=== PATIENT | female | born 1965 | race African-American/Black ===

== ENCOUNTER 2017-06-10 18:10 | Inpatient (IN) | payer MEDICARE, MEDICAID ==
[~2017-06-10] VITALS: Ht 172.7 cm; Wt 115.2 kg
[~2017-06-10 18:10] MED LIST: ASCO500T9 PO; BENZ1TAB22 PO; BISA-79 PO; CLON1TAB PO; DIVA250T4 PO; FLUO40CA49 PO; FURO-144 PO; LEVE500T20 PO; PALI234D IM; POTA20TA74 PO; QUET200T PO; RIVA10TA PO; ZINC220C8 PO; ZOLP5TAB2 PO
--- NOTE | 2017-06-10 18:20 | NUR ---
[id number] FROM [facility] FOR WITNESSED SEIZURE LASTED 2MIN PER PRINCIPAL AUTOMATION ENGINEER. NO TRAUMA. [id number]. SEIZURE PRECAUTION IS IN PLACE. RR IS EVEN AND UNLABORED WITH NAD NOTED. SKIN IS WARM AND DRY. PLACED ON THE MONITOR. WILL CONTINUOUSLY MONITOR THE PATIENT. AWAITING MD FOR EVAL.
[2017-06-10] MEDS ORDERED: LORAZEPAM 1 MG TABLET ONE (18:27)
[2017-06-10] MEDS ORDERED: LEVETIRACETAM (250 MG) 250 MG TABLET PO ONE ×2 (18:27→18:30)
[2017-06-10] MEDS ORDERED: LORAZEPAM 1 MG TABLET PO ONE (18:30)
--- NOTE | 2017-06-10 18:31 | NUR ---
NETWORKS COMPUTER CONSULTANT AT FOR BLOOD DRAW.
[2017-06-10] MEDS ORDERED: LORAZEPAM INJ 2 MG/ML VIAL ONE ×3 (18:39→20:19)
--- NOTE | 2017-06-10 18:53 | NUR ---
PATIENT HAVING ACTIVE SEIZURE, PRECAUTIONS IN PLACE. ATIVAN GIVEN IM SINCE NO IV ACCESS AT THIS TIME, MD AWARE.
[2017-06-10] MEDS ORDERED: LORAZEPAM INJ 2 MG/ML VIAL IV ONE (19:00)
[2017-06-10 19:01] LABS: EOSINOPHILS % (AUTO) 0.5 % (0.0-6.0); HEMATOCRIT 33 % (33-45); HEMOGLOBIN 10.9 g/dL (11.5-14.8); LYMPHOCYTES # (AUTO) 2.2 /CMM (0.8-4.8); LYMPHOCYTES % (AUTO) 83.3 % (20.0-44.0); MEAN CORPUSCULAR HGB CONC 33 g/dl (31.0-36.0); MEAN CORPUSCULAR VOLUME 86 fL (82-100); MONOCYTES # (AUTO) 0.2 /CMM (0.1-1.30); MONOCYTES % (AUTO) 5.8 % (2.0-12.0); NEUTROPHILS # (AUTO) 0.3 /CMM (1.8-8.9); NEUTROPHILS % (AUTO) 9.4 % (43.0-81.0); PLATELET COUNT (AUTO) 189 /CMM (150-450); RDW COEFFICIENT OF VARIATION 13.8 (11.5-15.0); WHITE BLOOD COUNT (AUTO) 2.7 K/uL (4.3-11.0)
[2017-06-10 19:12] LABS: CALCIUM, SERUM 8.6 mg/dL (8.5-10.1); CREATININE 1.1 mg/dL (0.6-1.3); POTASSIUM 4.5 mmol/L (3.5-5.1)
[2017-06-10 19:17] LABS: INR 1.08 (0.85-1.15)
--- NOTE | 2017-06-10 19:20 | NUR ---
RECEIVED REPORT FROM JOEY SIDDIQI FOR TREY.
--- NOTE | 2017-06-10 19:28 | NUR ---
PT NOTED TO BE HAVING TONIC CLONIC SEIZURE LASTING 4 MINUTES. PT IS ON NR 15L/M WITH SEIZURE PRECAUTIONS IN PLACE. PT MEDICATED PER MD'S ORDERS. WILL CONTINUE TO MONITOR PT.
[2017-06-10] MEDS ORDERED: LEVETIRACETAM (500MG) 500 MG in IV NS 0.9% 100 ML IV ONE (19:30)
[2017-06-10] MEDS ORDERED: LORAZEPAM INJ 2 MG/ML VIAL IVP ONE ×2 (19:30→20:30)
--- NOTE | 2017-06-10 20:00 | NUR ---
CALLED THE NURSING SITE SAFETY MANAGER FOR A [facility] ROOM.
--- NOTE | 2017-06-10 20:06 | NUR ---
CALLED [facility] FOR PANEL CALL AND DR. CLAYTON WAS PAGED.
[2017-06-10 20:12] LABS: BAND % (MANUAL) 1 % (0.0-5.0); BASOPHILS % (MANUAL) 0 % (0.0-2.0); EOSINOPHILS % (MANUAL) 0 % (0-4); LYMPHOCYTES % (MANUAL) 90 % (16-48); MONOCYTES % (MANUAL) 3 % (0-11.0); NEUTROPHILS % (MANUAL) 6 (42-76)
--- NOTE | 2017-06-10 20:12 | NUR ---
PT IS ASSIGNED TO [facility]#: [id number], PT IS DIAGNOSED WITH STATUS EPILEPTICUS, AND DR CLAYTON IS THE ACCEPTING MD.
--- NOTE | 2017-06-10 20:23 | NUR ---
PT BROUGHT BACK FROM CT DUE TO PT HAVING AN ACTIVE SEIZURE. PT NOTED TO BE HAVING TONIC CLONIC SEIZURES FOR A TOTAL OF [address] UNABLE TO BE PERFORMRED. MD MADE AWARE. PT MEDICATED PER MD'S ORDERS. WILL CONTINUE TO MONITOR PT. PT ON MONITOR AND POX. PT ON NR 15L/M. SEIZURE PRECAUTIONS IN PLACE.
--- NOTE | 2017-06-10 20:32 | NUR ---
RADIOLOGY BEDSIDE FOR CHEST X-RAY
--- NOTE | 2017-06-10 20:34 | NUR ---
PT TO CT
--- NOTE | 2017-06-10 20:41 | NUR ---
REPORT GIVEN TO BACILIO QUEVEDO FOR TREY.
--- NOTE | 2017-06-10 20:59 | NUR ---
PER MD BILLY, CT NO LONGER REQUIRED AT THIS MOMENT. PT OKAY TO BE TRANSFERED TO [facility] PER MD BILLY.
[2017-06-10 21:15] VITALS: BP 127/75
[2017-06-10] MEDS ORDERED: MAG HYDROX/AL HYDROX/SIMETH 30 ML UDC PO PRN (21:30)
[2017-06-10] MEDS ORDERED: ENOXAPARIN SODIUM 40 MG/0.4 ML DISP.SYRIN SQ SCH (21:30)
[2017-06-10] MEDS ORDERED: Z GUARD REMEDY 2 OZ OINT TP PRN (21:30)
[2017-06-10] MEDS ORDERED: BISACODYL (5 MG) 5 MG TABLET.DR PO PRN (21:30)
[2017-06-10] MEDS ORDERED: HYDROCODONE/APAP 5/325MG 1 EACH TABLET PO PRN (21:30)
[2017-06-10] MEDS ORDERED: PALIPERIDONE PALMITATE 234 MG IM SCH (21:30)
[2017-06-10] MEDS ORDERED: ZOLPIDEM TARTRATE 5 MG TABLET PO PRN (21:30)
[2017-06-10] MEDS ORDERED: ONDANSETRON HCL/PF 4 MG/2 ML VIAL IVP PRN (21:30)
[2017-06-10] MEDS ORDERED: MAGNESIUM HYDROXIDE 30 ML UDC PO PRN (21:30)
[2017-06-10] MEDS ORDERED: ACETAMINOPHEN 325 MG TABLET PO PRN (21:30)
[2017-06-10] MEDS ORDERED: ZOLPIDEM TARTRATE 5 MG TABLET PO SCH (22:00)
--- NOTE | 2017-06-10 22:00 | NUR ---
DATA CONTROL CLERK SUPERVISOR NOTE ADMITTED 51 YEARS OLD FEMALE PT FROM ER WITH THE DX OF SUSPECTED BREAKTHROUGH SEIZURE. PT IS A/O X 2-3. NO SOB, NO DISTRESS OR DISCOMFORT NOTED. DENIES PAIN. ON TELE S TACH HR 109. VANESSA CATH ON LT UPPER CHEST INTACT AND PATENT. SKIN ASSESSMENT DONE. PICTURES TAKEN AND PLACE THEM IN THE CHART. WOUND AND DIETARY CONSULT TRIGGERED. ADMITTING ORDERS CHECKED. ORIENTED PT TO HER ROOM. SIDE RAILS UP X 3 AND CALL LIGHT WITHIN REACH. SEIZURE PRECAUTIONS TAKEN. PADDED SIDE RAILS. CONTINUE TO MONITOR HER.
[2017-06-10] MEDS: ASCORBIC ACID 500 MG TABLET PO SCH (22:43)
[2017-06-10] MEDS: BENZTROPINE MESYLATE (1 MG) 1 MG TABLET PO SCH (22:43)
[2017-06-10] MEDS: IV NS 0.9% 1,000 ML IV PRN (23:19)
[2017-06-11] VITALS: BP 116/50
[2017-06-11 04:00] VITALS: BP 118/66
--- NOTE | 2017-06-11 04:00 | NUR ---
PRODUCT BLENDING SUPERVISOR NOTE PT IN BED ASLEEP, NO DISTRESS OR DISCOMFORT NOTED. IVF INFUSING WELL, LT UPPER CHEST WALL PROTA CATH. CONTINUE TO MONITOR HER.
--- NOTE | 2017-06-11 06:34 | NUR ---
COMMERCIAL REAL ESTATE APPRAISER NOTE PT IN BED AWAKE. NO DISTRESS OR DISCOMFORT NOTED. DENIES PAIN. ON TELE S TACH HR 106. SIDE RAILS UP X 2 AND CALL LIGHT WITHIN REACH. VSS. WILL ENDORSE TO DAY SHIFT NURSE FOR CONTINUE TO CARE.
[2017-06-11 06:59] LABS: EOSINOPHILS % (AUTO) 0.3 % (0.0-6.0); HEMATOCRIT 33 % (33-45); LYMPHOCYTES # (AUTO) 0.4 /CMM (0.8-4.8); MEAN CORPUSCULAR HGB CONC 33 g/dl (31.0-36.0); MEAN CORPUSCULAR VOLUME 87 fL (82-100); MONOCYTES # (AUTO) 0.4 /CMM (0.1-1.30); MONOCYTES % (AUTO) 4.5 % (2.0-12.0); NEUTROPHILS % (AUTO) 91.2 % (43.0-81.0); PLATELET COUNT (AUTO) 200 /CMM (150-450); RDW COEFFICIENT OF VARIATION 15.1 (11.5-15.0); RED BLOOD CELL COUNT(AUTO) 3.84 MIL/uL (4.0-5.2); WHITE BLOOD COUNT (AUTO) 8.8 K/uL (4.3-11.0)
[2017-06-11 07:43] LABS: ALBUMIN 2.6 g/dL (3.4-5.0); BILIRUBIN,TOTAL 0.4 mg/dL (0.2-1.0); CALCIUM, SERUM 8.5 mg/dL (8.5-10.1); MAGNESIUM 1.8 mg/dL (1.8-2.4); PHOSPHORUS 3.1 mg/dL (2.5-4.9); POTASSIUM 4.8 mmol/L (3.5-5.1); TOTAL PROTEIN, SERUM 7.8 g/dL (6.4-8.2)
--- NOTE | 2017-06-11 07:45 | NUR ---
RN NOTE RECEIVED PATIENT IN BED ASLEEP, BUT EASILY AROUSED WITH VERBAL COMMUNICATION. BREATHING EVEN AND UNLABORED WITH NO DISCOMFORT OR DISTRESS NOTED. ON CONTINUOUS O2 OF 2L SATURATING WELL. DENIES ANY PAIN AT THIS TIME. ON BUFFER NICKEL OF SINUS RHYTHM HR OF 96. VANESSA CATH ON LT UPPER CHEST INTACT AND PATENT. PLACED CALL LIGHT WITHIN REACH, BED LOW IN LOCKED POSITION. SEIZURE PRECAUTIONS TAKEN. PADDED SIDE RAILS. WILL CONTINUE TO MONITOR
[2017-06-11 08:00] VITALS: BP 109/58
--- NOTE | 2017-06-11 08:46 | NUR ---
WOUND CARE CONSULT: PT PRESENTS WITH DRY SKIN TO LOWER LEGS AND SLIGHT REDNESS TO BREAST FOLDS, PRESENT ON ADMISSION. RECOMMENDATIONS MADE FOR SKIN PROTECTION AND CARE. DISCUSSED WITH NURSING STAFF. WILL SEE PRN. Micha Abbott IN AGREEMENT WITH PLAN OF CARE. CURRENT TYE SCORE IS 18. Addendum: 06/11/17 at 0847 by LEILANI HAMMER WNDNU Amended: Links added.
[2017-06-11] MEDS ORDERED: FUROSEMIDE 40 MG TABLET PO SCH (09:00)
[2017-06-11] MEDS ORDERED: MINERAL OIL/PETROLATUM,WHITE 120 GM JAR TP PRN (09:00)
[2017-06-11] MEDS: POTASSIUM CHLORIDE 20 MEQ TAB.PRT.SR PO SCH (09:22)
[2017-06-11] MEDS: BENZTROPINE MESYLATE (1 MG) 1 MG TABLET PO SCH ×2 (09:22→16:52)
[2017-06-11] MEDS: ZINC SULFATE 220 MG CAPSULE PO SCH (09:22)
[2017-06-11] MEDS: clonazePAM 1 MG TABLET PO SCH ×3 (09:22→16:52)
[2017-06-11] MEDS: ASCORBIC ACID 500 MG TABLET PO SCH ×2 (09:22→16:52)
[2017-06-11] MEDS: RIVAROXABAN 10 MG TABLET PO SCH (09:23)
[2017-06-11] MEDS: ENOXAPARIN SODIUM 40 MG/0.4 ML DISP.SYRIN SQ SCH (09:24)
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
[2017-06-11 12:00] VITALS: BP 105/61
[2017-06-11] MEDS: IV NS 0.9% 1,000 ML IV PRN (12:05)
--- NOTE | 2017-06-11 12:15 | NUR ---
RN NOTE ROLANDO ROMAN NP AND BERENICE KNIGHT NP FROM [facility] ([facility]) CAME TO VISIT PATIENT AND INITIATED A ABBREVIATED SART EXAM PHONE [phone]
[2017-06-11] MEDS: LORAZEPAM INJ 2 MG/ML VIAL IV PRN (12:29)
--- NOTE | 2017-06-11 12:30 | NUR ---
RN NOTE PATIENT NOTED WITH A SEIZURE LASTED 2 MINS, ATIVAN 2MG PRN WAS GIVEN, HELP RELIEVE SYMPTOMS. WILL CONTINUE TO MONITOR CLOSELY
[2017-06-11] MEDS: DIVALPROEX SODIUM 250 MG TABLET.DR PO SCH ×3 (12:49→20:48)
[2017-06-11] MEDS: QUETIAPINE FUMARATE 100 MG TABLET PO SCH ×3 (12:49→20:48)
[2017-06-11 16:00] VITALS: BP 103/68
[2017-06-11 16:47] LABS: APPEARANCE,URINE CLEAR (CLEAR); BILIRUBIN,URINE NEGATIVE (NEGATIVE); BLOOD, URINE 1+ Ery/uL (NEGATIVE); COLOR,URINE YELLOW (YELLOW); KETONES,URINE NEGATIVE (NEGATIVE); LEUKOCYTE ESTERASE ,URINE NEGATIVE (NEGATIVE); NITRITE, URINE NEGATIVE (NEGATIVE); PH,URINE 5.5 (5.0-8.0); PROTEIN,URINE NEGATIVE (NEGATIVE); UGLUCOSE NEGATIVE (NEGATIVE); UROBILINOGEN,URINE 0.2 EU/dL (0.2)
--- NOTE | 2017-06-11 16:59 | NUR ---
Patient is developmentally delay, resident of [facility] . Patient requires assistance with adl's. Patient has a public guardian Bhaskar Waller - public guardian [phone]. Current plan is top dc back to [facility] vs SNF Addendum: 06/11/17 at 1700 by PREMA MURPHY RN Amended: Links added.
[2017-06-11 17:17] LABS: BACTERIA,URINE None seen /HPF (None Seen); SQUAMOUS EPITHELIAL CELL,UR Few /HPF (None Seen); WBC,URINE 0-2 /HPF (0-3)
--- NOTE | 2017-06-11 19:07 | NUR ---
RN NOTE PATIENT REMAINED STABLE THROUGHOUT SHIFT. NO ACUTE CHANGES OR DISTRESS NOTED. NO MORE EPISODES OF SEIZURES THROUGHOUT SHIFT. WILL ENDORSE TO NEXT SHIFT TO CONTINUE CONTINUITY OF CARE
--- NOTE | 2017-06-11 19:20 | NUR ---
STATIONARY ENGINEER APPRENTICE NOTES, RECEIVED PATIENT IN BED, SLEEPING AT THIS TIME, [id number] EVEN AND UNLABORED, NO S/S OF PAIN OR DISCOMFORT NOTED, IVF RUNNING WELL AND PATIENT TOLERATED WELL, IV SITE INTACT AND PATENT, CALL LIGHT W/I REACH, WILL CONTINUE TO MONITOR CLOSELY.
[2017-06-11 20:00] VITALS: BP 103/59
[2017-06-11] MEDS: LEVETIRACETAM (250 MG) 250 MG TABLET PO SCH (20:48)
[2017-06-12] VITALS: BP 109/64
[2017-06-12] MEDS: IV NS 0.9% 1,000 ML IV PRN ×2 (02:11→16:16)
[2017-06-12 04:00] VITALS: BP 100/60
--- NOTE | 2017-06-12 07:00 | NUR ---
ENGRAVER TIRE MOLD NOTES, CALLED TO ROOM DUE TO PATIENT EXPERIENCING A SEIZURE, BUT UNABLE TO WITNESS, IT WAS BRIEF DURING PROBABLY 1MIN ACCORDING TO STAFF PSYCHIATRIST, ATIVAN GIVEN ORDERED, WILL ENDORSE CONTINUITY OF CARE TO ONCOMING NURSE.
[2017-06-12] MEDS: LORAZEPAM INJ 2 MG/ML VIAL IV PRN (07:06)
--- NOTE | 2017-06-12 07:20 | NUR ---
RN NOTES RECEIVED PATIENT IN BED, ALERT ORIENTED X 3. NO ACUTE DISTRESS NOTED. BREATHING UNLABORED. IV ACCESS PATENT AND INTACT, NO REDNESS OR SWELLING NOTED. SAFETY MEASURES IN PLACE, CALL LIGHT WITHIN REACH. WILL CONTINUE TO MONITOR ACCORDINGLY.
[2017-06-12 08:00] VITALS: BP 90/57
[2017-06-12] MEDS: DIVALPROEX SODIUM 250 MG TABLET.DR PO SCH ×4 (08:55→21:10)
[2017-06-12] MEDS: LEVETIRACETAM (250 MG) 250 MG TABLET PO SCH ×2 (08:55→21:10)
[2017-06-12] MEDS: QUETIAPINE FUMARATE 100 MG TABLET PO SCH ×4 (08:56→21:10)
[2017-06-12] MEDS: BENZTROPINE MESYLATE (1 MG) 1 MG TABLET PO SCH ×2 (08:56→16:17)
[2017-06-12] MEDS: FLUOXETINE HCL 20 MG CAPSULE PO SCH (08:56)
[2017-06-12] MEDS: clonazePAM 1 MG TABLET PO SCH ×3 (08:56→16:17)
[2017-06-12] MEDS: ASCORBIC ACID 500 MG TABLET PO SCH ×2 (08:56→16:17)
[2017-06-12] MEDS: POTASSIUM CHLORIDE 20 MEQ TAB.PRT.SR PO SCH (08:56)
[2017-06-12] MEDS: ZINC SULFATE 220 MG CAPSULE PO SCH (08:56)
[2017-06-12] MEDS: RIVAROXABAN 10 MG TABLET PO SCH (08:57)
[2017-06-12] MEDS: ENOXAPARIN SODIUM 40 MG/0.4 ML DISP.SYRIN SQ SCH (08:57)
[2017-06-12 12:00] VITALS: BP 110/70
[2017-06-12 16:00] VITALS: BP 119/67
[2017-06-12 18:12] LABS: BASOPHILS # (AUTO) 0.1 /CMM (0.0-0.2); BASOPHILS % (AUTO) 0.8 % (0.0-2.0); EOSINOPHILS % (AUTO) 4.1 % (0.0-6.0); HEMATOCRIT 32 % (33-45); HEMOGLOBIN 10.8 g/dL (11.5-14.8); LYMPHOCYTES # (AUTO) 1.2 /CMM (0.8-4.8); LYMPHOCYTES % (AUTO) 18.3 % (20.0-44.0); MEAN CORPUSCULAR HGB CONC 34 g/dl (31.0-36.0); MEAN CORPUSCULAR VOLUME 86 fL (82-100); MONOCYTES # (AUTO) 0.5 /CMM (0.1-1.30); NEUTROPHILS # (AUTO) 4.4 /CMM (1.8-8.9); NEUTROPHILS % (AUTO) 69.8 % (43.0-81.0); PLATELET COUNT (AUTO) 177 /CMM (150-450); RDW COEFFICIENT OF VARIATION 14.1 (11.5-15.0); WHITE BLOOD COUNT (AUTO) 6.5 K/uL (4.3-11.0)
[2017-06-12 18:28] LABS: ALBUMIN 2.3 g/dL (3.4-5.0); BILIRUBIN,DIRECT 0.1 mg/dL (0.0-0.2); BILIRUBIN,TOTAL 0.2 mg/dL (0.2-1.0); CALCIUM, SERUM 8.4 mg/dL (8.5-10.1); CREATININE 0.8 mg/dL (0.6-1.3); POTASSIUM 4.1 mmol/L (3.5-5.1); TOTAL PROTEIN, SERUM 7.4 g/dL (6.4-8.2)
--- NOTE | 2017-06-12 18:30 | NUR ---
RN CLOSING NOTES PATIENT SITTING IN BED ALERT ORIENTED X3. NO ACUTE DISTRESS NOTED. BREATHING UNLABORED. IV ACCESS PATENT AND INTACT, NO REDNESS OR SWELLING NOTED. DUE MEDICATIONS GIVEN, NO ASE NOTED. NEEDS ATTENDED AND ANTICIPATED. SAFETY MEASURES IN PLACE. CALL LIGHT WITHIN REACH. WILL CONTINUE TO MONITOR ACCORDINGLY. WILL ENDORSE TO NIGHT NURSE FOR CONTINUITY OF CARE.
[2017-06-12 20:00] VITALS: BP 113/63
[2017-06-13] VITALS: BP 117/70
[2017-06-13 04:00] VITALS: BP 109/70
[2017-06-13] MEDS: IV NS 0.9% 1,000 ML IV PRN ×2 (05:26→21:12)
[2017-06-13 07:26] LABS: CALCIUM, SERUM 8.5 mg/dL (8.5-10.1); CREATININE 0.8 mg/dL (0.6-1.3); POTASSIUM 4.1 mmol/L (3.5-5.1)
[2017-06-13 07:27] LABS: BASOPHILS % (AUTO) 0.5 % (0.0-2.0); EOSINOPHILS % (AUTO) 4.4 % (0.0-6.0); HEMATOCRIT 30 % (33-45); HEMOGLOBIN 10.2 g/dL (11.5-14.8); LYMPHOCYTES # (AUTO) 1.6 /CMM (0.8-4.8); LYMPHOCYTES % (AUTO) 24.9 % (20.0-44.0); MEAN CORPUSCULAR HGB CONC 34 g/dl (31.0-36.0); MEAN CORPUSCULAR VOLUME 87 fL (82-100); MONOCYTES # (AUTO) 0.8 /CMM (0.1-1.30); MONOCYTES % (AUTO) 12.9 % (2.0-12.0); NEUTROPHILS # (AUTO) 3.6 /CMM (1.8-8.9); NEUTROPHILS % (AUTO) 57.3 % (43.0-81.0); PLATELET COUNT (AUTO) 169 /CMM (150-450); RDW COEFFICIENT OF VARIATION 13.7 (11.5-15.0); RED BLOOD CELL COUNT(AUTO) 3.47 MIL/uL (4.0-5.2); WHITE BLOOD COUNT (AUTO) 6.3 K/uL (4.3-11.0)
[2017-06-13 08:00] VITALS: BP 132/86
--- NOTE | 2017-06-13 08:00 | NUR ---
CAFE TEAM MEMBER AM NOTES RECEIVED PATIENT IN BED, ALERT ORIENTED X 3. NO ACUTE DISTRESS NOTED. BREATHING UNLABORED. IV ACCESS PATENT AND INTACT,WITH IVF NS AT 75 ML/HR INFUSING WELL TO LT CHEST PERMACATH.ATE 100%BREAKFAST WITH GOOD APPETITE.NO REDNESS OR SWELLING NOTED. FOR PT EVAL.SAFETY MEASURES IN PLACE, CALL LIGHT WITHIN REACH. WILL CONTINUE TO MONITOR ACCORDINGLY.
[2017-06-13] MEDS: ASCORBIC ACID 500 MG TABLET PO SCH ×2 (08:14→17:38)
[2017-06-13] MEDS: ZINC SULFATE 220 MG CAPSULE PO SCH (08:14)
[2017-06-13] MEDS: clonazePAM 1 MG TABLET PO SCH ×3 (08:15→17:37)
[2017-06-13] MEDS: POTASSIUM CHLORIDE 20 MEQ TAB.PRT.SR PO SCH (08:15)
[2017-06-13] MEDS: BENZTROPINE MESYLATE (1 MG) 1 MG TABLET PO SCH ×2 (08:15→17:37)
[2017-06-13] MEDS: QUETIAPINE FUMARATE 100 MG TABLET PO SCH ×4 (08:15→21:12)
[2017-06-13] MEDS: FLUOXETINE HCL 20 MG CAPSULE PO SCH (08:15)
[2017-06-13] MEDS: DIVALPROEX SODIUM 250 MG TABLET.DR PO SCH ×4 (08:15→21:12)
[2017-06-13] MEDS: LEVETIRACETAM (250 MG) 250 MG TABLET PO SCH ×2 (08:17→21:12)
[2017-06-13] MEDS: RIVAROXABAN 10 MG TABLET PO SCH (08:18)
[2017-06-13] MEDS: ENOXAPARIN SODIUM 40 MG/0.4 ML DISP.SYRIN SQ SCH (08:19)
[2017-06-13] MEDS: LORAZEPAM INJ 2 MG/ML VIAL IV PRN (08:55)
--- NOTE | 2017-06-13 08:59 | NUR ---
PT HAD 2 MIN SIMPLE PARTIAL SEIZURE EPISODE.FIRST C/O BACK STIFFENING DURING BREAKFAST TO MINIMAL SHAKING OF THE ARMS AND HEAD TURNING SIDE TO SIDE.CLOSELY MONITORED FOR SAFETY.WITH PADDED SIDERAILS.NO S/S OF PAIN OR DISTRESS NOTED.ATIVAN 2 MG IV GIVEN.
--- NOTE | 2017-06-13 09:10 | NUR ---
NOTIFIED ANTONIO HUBBARD NP AND MADE AWARE OF THE SEIZURE EPISODE WITH NO NEW ORDER.PT IS COMFORTABLY SLEEPING WITH NO DISTRESS NOTED AND AROUSABLE.
--- NOTE | 2017-06-13 11:30 | NUR ---
PT AMBULATED WITH P.T. USING FWW WITH SLOW,STEADY GAIT.TOLERATED WELL.NO C/O PAIN OR DISTRESS.
--- NOTE | 2017-06-13 11:50 | NUR ---
NIELS SAHA BRYAN [facility] UTILITY MANAGER CAME AND STATED THAT THE PT HAS EPISODES OF FAKING HER SEIZURES SPECIALLY IF SHE WANTS TO STAY IN THE HOSPITAL.PT WILL FAKE HER SEIZURE, FOR HER NOT TO LEAVE THE HOSPITAL.NIELS SAHA BRYAN [facility] UTILITY MANAGER WENT TO TALK TO THE DROP HAMMER SETTER UP.
[2017-06-13 12:00] VITALS: BP 119/72
--- NOTE | 2017-06-13 14:00 | NUR ---
ANITHA ALVAREZ CAME AND SAID TO TRY SQUIRTING NS ON PT'S EYES.IF PT BLINKS,IT IS A FAKE SEIZURE ALSO RAISE PT'S ARM AND IF IT FALLS,ITS REAL. Addendum: 06/13/17 at 1930 by ADELA FLORES RN IF THE ARMS FALLS STRAIGHT TO HER FACE,IT'S REAL SEIZURE. IF THE ARM FALLS AVOIDING HER FACE,THE SEIZURE IS FAKE.
[2017-06-13 16:00] VITALS: BP 111/69
[2017-06-13] MEDS: DOCUSATE SODIUM 100 MG CAPSULE PO SCH (17:37)
--- NOTE | 2017-06-13 19:30 | NUR ---
PT DENIES ANY PAIN OR DISTRESS.WITH ONGOING IVF OF NS AT 75 ML/HR INFUSING WELL.WILL CONTINUE TO MONITOR FOR SEIZURE.ENDORSED TO POWER WASHER NURSE' CARE.
[2017-06-13 20:00] VITALS: BP 122/72
[2017-06-14] VITALS: BP_SYST 132; BP_SYST 138; BP_DIAS 78
--- NOTE | 2017-06-14 00:08 | NUR ---
TELE-1/AMIE REECE CNA CALLED ME TO THE PTS BEDSIDE, SHE NOTED PT TO BE SPASTICALLY JERKING HER BODY IN BED. I ENTERED THE ROOM AND NOTICED THE PT TO BE TRACKING ME WITH HER EYES I WALKED AROUND HER BED. WHILE SHE CONTINUED HER SPASTIC JERKING MOTIONS I APPLIED PAIN STIMULUS TO HER TOE, WHICH EVOKED A PAIN RESPONSE. PTS BED IS PADDED FOR SAFETY AND I RAISED THE HEAD OF THE BED. WILL CONTINUE TO MONITOR CLOSELY.
[2017-06-14 04:00] VITALS: BP 127/79
--- NOTE | 2017-06-14 07:45 | NUR ---
COAL FEEDER OPERATOR NOTE: RECEIVED PATIENT IN BED, AWAKE, ALERT AND ABLE TO VERBALIZE HER NEEDS. ON REGIONAL PRODUCTION MANAGER, SR HR= 73. HOB ELEVATED. DENIED PAIN. ON MONITORING FOR ANY SEIZURE EPISODE. (L) CHEST PORT-A-CATH NOTED INTACT AND PATENT INFUSING NS@75CC/HR. BED ALARMED AND LOCKED ALL TIMES. CALL LIGHT WITHIN REACH. WILL CONTINUE TO MONITOR.
[2017-06-14 08:00] VITALS: BP 123/84
[2017-06-14] MEDS: DOCUSATE SODIUM 100 MG CAPSULE PO SCH ×2 (08:30→17:16)
[2017-06-14] MEDS: FLUOXETINE HCL 20 MG CAPSULE PO SCH (08:30)
[2017-06-14] MEDS: POTASSIUM CHLORIDE 20 MEQ TAB.PRT.SR PO SCH (08:31)
[2017-06-14] MEDS: ZINC SULFATE 220 MG CAPSULE PO SCH (08:31)
[2017-06-14] MEDS: clonazePAM 1 MG TABLET PO SCH ×3 (08:31→17:16)
[2017-06-14] MEDS: DIVALPROEX SODIUM 250 MG TABLET.DR PO SCH ×3 (08:31→17:16)
[2017-06-14] MEDS: LEVETIRACETAM (250 MG) 250 MG TABLET PO SCH (08:31)
[2017-06-14] MEDS: ASCORBIC ACID 500 MG TABLET PO SCH ×2 (08:31→17:16)
[2017-06-14] MEDS: BENZTROPINE MESYLATE (1 MG) 1 MG TABLET PO SCH ×2 (08:31→17:16)
[2017-06-14] MEDS: QUETIAPINE FUMARATE 100 MG TABLET PO SCH ×3 (08:31→17:16)
[2017-06-14] MEDS: ENOXAPARIN SODIUM 40 MG/0.4 ML DISP.SYRIN SQ SCH (08:32)
[2017-06-14] MEDS: RIVAROXABAN 10 MG TABLET PO SCH (08:32)
[2017-06-14] MEDS: IV NS 0.9% 1,000 ML IV PRN (10:02)
[2017-06-14 12:00] VITALS: BP 134/82
[2017-06-14] MEDS ORDERED: DOCU-141 PO (12:50)
--- NOTE | 2017-06-14 15:21 | NUR ---
PHOTOGRAPHIC PROCESSOR NOTE: REPORTED TO ANTONIO HUBBARD NP RE: THE PATIENT'S BEHAVIOR OF YELLING AND SCREAMING AND ACTING OUT AT THIS TIME AFTER KNOWING THAT SHE IS GOING BACK TO THE ASSISTED LIVING. VENTILATOR SPECIALIST W/ ATIVAN ORDER, NOTED AND ACKNOWLEDGED. UNABLE TO PACIFY THE PATIENT AT THIS TIME. SPOKE W/ HER AND SHE DOES NOT WANT TO TALK AT ALL INSTEAD SHE WILL SCREAM AND YELL FOR NO REASON.
[2017-06-14] MEDS ORDERED: LORAZEPAM INJ 2 MG/ML VIAL IV ONE ×2 (15:30→17:00)
--- NOTE | 2017-06-14 15:45 | NUR ---
CEO AND CO FOUNDER NOTE: SPOKE W/ ANA ODONNELL AT [facility] AND MADE HIM AWARE ABOUT THE PATIENT'S RETURN TO THE FACILITY. HE WAS INFORMED ABOUT THE PATIENT'S ACTING OUT BEHAVIOR DUE TO HER RETURN TO THE FACILITY. BLAS WAS AWARE THAT ATIVAN 0.25MG IV X1 WAS ADMINISTERED. EXITCARE WAS DISCUSSED W/ BLAS OVER THE PHONE. MADE HIM AWARE THAT THE ETA FOR AMBULANCE IS ANYTIME AFTER 4PM TODAY. NURSE WAS INFORMED THAT PATIENT IS GOING TO ROOM 19 IN THE FACILITY.
--- NOTE | 2017-06-14 16:54 | NUR ---
EFFERVESCENT SALTS COMPOUNDER NOTE: CALLED AND SPOKE W/ ANTONIO HUBBARD NP AND MADE HIM AWARE THAT THE PATIENT IS STILL AGGRESSIVE, YELLING AND SCREAMING. UNABLE TO PACIFY THE PATIENT STILL. REFUSED VITAL SIGN AND DIAPER CHANGE. ANITHA ALVAREZ W/ SORAYA ORDER, NOTED AND ACKNOWLEDGED.
--- NOTE | 2017-06-14 17:30 | NUR ---
GUSSET EDGER NOTE: PATIENT WAS PICKED-UP BY 2 DOCUMENT IMAGING SPECIALIST OF STORMY TRANSPORTED VIA GURNEY. ON ROOM AIR SATURATING 96%. DENIED ANY PAIN. CALMED AND QUIET AT THIS TIME. COOPERATIVE UPON TRANSFER. (L) CHEST PORT-A-CATH NOTED INTACT AND PATENT W/ TRANSPARENT DRESSING. ALL PAPERWORK WAS RELEASED W/ THE PATIENT INCLUDING ALL HER BELONGINGS (CLOTHES AND WALKER). PATIENT SIGNED HER PAPERWORK.
== END 2017-06-14 17:54 | DRG 100 ==
LOC: ER 18:11 → TELE-TD 20:13 → TELE1 22:05
PROVIDERS: ADMIT Internal Medicine; ATTEND Internal Medicine
DX: G40.901 Epilepsy, unspecified, not intractable, with status epilepticus (principal); N17.0 Acute kidney failure with tubular necrosis; E44.0 Moderate protein-calorie malnutrition; D70.9 Neutropenia, unspecified; D63.8 Anemia in other chronic diseases classified elsewhere; E66.9 Obesity, unspecified; I73.9 Peripheral vascular disease, unspecified; K59.00 Constipation, unspecified; F32.9 Major depressive disorder, single episode, unspecified; F20.9 Schizophrenia, unspecified; Z68.38 Body mass index [BMI] 38.0-38.9, adult; Z91.14 Patient's other noncompliance with medication regimen; M19.90 Unspecified osteoarthritis, unspecified site; Z88.0 Allergy status to penicillin; E88.09 Other disorders of plasma-protein metabolism, not elsewhere classified
CPT/HCPCS: 36415; 70450-TC; 71045-TC; 74018; 80048-TC; 80053-TC; 80061-TC; 80076-TC; 80164-TC; 81000-TC; 82542; 82962-TC; 83735-TC; 84100-TC; 85025-TC; 85730-TC; 87081-TC; 97110-TC; 97116-TC; 97530-TC; A4606; J1650; J1953; J2060; J7030; Z7610

== ENCOUNTER 2021-11-14 16:16 | Inpatient (IN) | payer MEDICARE, OTHER ==
[~2021-11-14] VITALS: Ht 172.7 cm; Wt 139.3 kg
[~2021-11-14 16:16] MED LIST changes: +ASCO-352 PO; -ASCO500T9 PO; +DOCU-141 PO; +ZINC1CAP3 PO; -ZINC220C8 PO
--- NOTE | 2021-11-14 17:05 | NUR ---
REceived pt 56yrs female transfer from snf for gain hamlet and genralized weekness respiration spont and easy . DR. STEINER at bed side examin pt pt asleepy not fallow command
[2021-11-14] MEDS ORDERED: IV NS 0.9% 1,000 ML BAG IV ONE (17:30)
[2021-11-14] MEDS ORDERED: LEVETIRACETAM (500MG) 1,000 MG in IV NS 0.9% 100 ML IV ONE (17:30)
[2021-11-14] MEDS ORDERED: LEVETIRACETAM (500MG) 1,000 MG in IV NS 0.9% 100 ML IV SCH (17:30)
--- NOTE | 2021-11-14 19:15 | NUR ---
PT HAD IMPLANT PORTACATETRER ACTIVATEDED WITH LEONARD PLUS G 22 ON LT SUBCLEVIAN
--- NOTE | 2021-11-14 19:25 | NUR ---
DROW BLOOD AND SENT TO LAB
[2021-11-14] MEDS ORDERED: LORAZEPAM INJ 2 MG/ML VIAL ONE (19:51)
--- NOTE | 2021-11-14 19:52 | NUR ---
HAND OFF LANE COOK
--- NOTE | 2021-11-14 19:53 | NUR ---
PT HAD WITNESSED SEIZURE LASTING APPROX 1 MIN. 2 ATIVAN GIVEN. PT NOW IN POSTICTAL STATE. VITAL SIGNS: HR 118, BP: 142/85, O2: 95% 6L. SEIZURE PRECAUTIONS IN PLACE
[2021-11-14 19:54] LABS: BASOPHILS % (AUTO) 0.4 % (0.0-2.0); CALCIUM, SERUM 9.2 mg/dL (8.5-10.1); CARBON DIOXIDE 33 mmol/L (21-32); CHLORIDE 102 mmol/L (98-107); CREATININE 0.7 mg/dL (0.6-1.3); EOSINOPHILS % (AUTO) 1.9 % (0.0-6.0); GLUCOSE 108 mg/dL (74-106); HEMATOCRIT 33 % (33-45); HEMOGLOBIN 10.7 g/dL (11.5-14.8); LYMPHOCYTES # (AUTO) 2.1 K/uL (0.8-4.8); LYMPHOCYTES % (AUTO) 16.6 % (20.0-44.0); MEAN CORPUSCULAR HGB CONC 32 g/dl (31.0-36.0); MEAN CORPUSCULAR VOLUME 88 fL (82-100); MONOCYTES # (AUTO) 1.2 K/uL (0.1-1.30); MONOCYTES % (AUTO) 9.3 % (2.0-12.0); NEUTROPHILS # (AUTO) 9.1 K/uL (1.8-8.9); NEUTROPHILS % (AUTO) 71.8 % (43.0-81.0); PLATELET COUNT (AUTO) 242 K/uL (150-450); POTASSIUM 4.1 mmol/L (3.5-5.1); RED BLOOD CELL COUNT(AUTO) 3.79 MIL/uL (4.0-5.2); SODIUM SERUM 140 mmol/L (136-145); UREA NITROGEN, BLOOD 25 mg/dL (7-18); WHITE BLOOD COUNT (AUTO) 12.6 K/uL (4.3-11.0)
[2021-11-14 20:00] LABS: ALANINE AMINOTRANSFERASE 22 U/L (12-78); ALBUMIN 2.8 g/dL (3.4-5.0); ALKALINE PHOSPHATASE 116 U/L (46-116); ASPARTATE AMINOTRANSFERASE 15 U/L (15-37); BILIRUBIN,DIRECT 0.1 mg/dL (0.0-0.2); BILIRUBIN,TOTAL 0.2 mg/dL (0.2-1.0); TOTAL PROTEIN, SERUM 8.2 g/dL (6.4-8.2)
[2021-11-14 20:12] LABS: ALCOHOL, BLOOD < 3 mg/dL (0-0)
[2021-11-14] MEDS ORDERED: LORAZEPAM INJ 2 MG/ML VIAL IV ONE (20:30)
[2021-11-14] MEDS ORDERED: AMMONIA NASAL INHALATION 1 EA PACK NAS PRN (21:00)
[2021-11-14] MEDS: DIVALPROEX SODIUM 250 MG TABLET.DR PO SCH (21:00)
[2021-11-14] MEDS ORDERED: LORAZEPAM INJ 2 MG/ML VIAL IV PRN (21:00)
[2021-11-14] MEDS ORDERED: ONDANSETRON HCL/PF 4 MG/2 ML VIAL IVP PRN (21:00)
[2021-11-14] MEDS ORDERED: hydrALAZINE HCL IV 20 MG VIAL IV PRN (21:00)
[2021-11-14] MEDS ORDERED: MORPHINE SULFATE INJ 2 MG/ML DISP.SYRIN IV PRN (21:00)
[2021-11-14] MEDS ORDERED: ACETAMINOPHEN 325 MG TABLET PO PRN (21:00)
--- NOTE | 2021-11-14 21:06 | NUR ---
KESHAV SENT TO LAB
--- NOTE | 2021-11-14 21:27 | NUR ---
PT NO LONGER IN POSTICTAL STATE, AAOX2. DENIES ANY PAIN AT THIS TIME. CONNECTED TO MONITOR. WILL CONTINUE TO MONITOR
[2021-11-14] MEDS: ZOLPIDEM TARTRATE 5 MG TABLET PO SCH (22:00)
--- NOTE | 2021-11-14 22:40 | NUR ---
JOEY ESCOBAR NOT READY FOR REPORT
--- NOTE | 2021-11-14 22:47 | NUR ---
REPORT GIVEN TO KAREN COOK FOR TREY
--- NOTE | 2021-11-14 22:57 | NUR ---
GETTING TRANSFERRED TO 311 UNDER ACLS
[2021-11-14 23:00] VITALS: BP 143/75
[2021-11-14] MEDS: IV NS 0.9% 1,000 ML IV PRN (23:37)
--- NOTE | 2021-11-15 01:38 | NUR ---
/MARLYS/RN AT 2300, RECEIVED PATIENT FROM E.R. VIA [employer]. PATIENT WAS AWAKE, ALERT, ORIENTED X 2, ABLE TO ANSWER NAME, , MONTH, BUT UNABLE TO ANSWER PLACE AND TIME. MADE PATIENT COMFORTABLE IN BED. UNABLE TO OBTAIN ADMISSION INFORMATIONS FROM THE PATIENT SHE WAS NOT ABLE TO ANSWER QUESTIONS. ADMISSION INFORMATIONS WERE OBTAINED FROM E.R. CHART. TWO EPISODES OF SEIZURE LIKE ACTIVITY WAS NOTED AT AROUND 23:12 TO 23:15, AND 23:26 TO 23:28, THE ACTIVITY WAS HEAD MOVEMENT UP AND DOWN, EYES OPEN WITH NORMAL EYE MOVEMENTS NOTED. AFTER EACH ACTIVITY, PATIENT WAS BACK TO NORMAL IF NOTHING HAPPENED. CHARGE NURSE MADE AWARE. WHEN THE PATIENT WAS BROUGHT TO CT FOR CT HEAD, ONE SEIZURE LIKE ACTIVITY WAS NOTED AT AROUND 0026 TO 00:28 WITH THE SAME PATTERN EARLIER. WHEN PATIENT WAS BACK TO ROOM AFTER CT HEAD, INFORMED PATIENT ABOUT PLAN OF CARE, TAUGHT THE USE OF CALL LIGHT AND PLACED IT WITHIN REACH, SEIZURE AND FALL PRECAUTIONS PER PROTOCOL WERE IMPLEMENTED. PRESENTLY, PATIENT APPEARS SLEEPING, NO SIGNS OF DISTRESS NOTE, WILL MONITOR. Addendum: 11/15/21 at 0420 by WADE STEARNS RN BLE BANDAGE NOTED, PATIENT REFUSED TO HAVE IT REMOVED. NOT SURE THE SKIN CONDITION BENEATH THE BANDAGE.
--- NOTE | 2021-11-15 06:23 | NUR ---
MS/TELE/RN PATIENT IS STILL SLEEPING AT THIS TIME, NO SIGNS OF DISTRESS NOTED, IVF INFUSING, CALL LIGHT IN REACH, ALL NEEDS ATTENDED AT THIS TIME, WILL CONTINUE TO MONITOR.
--- NOTE | 2021-11-15 06:29 | NUR ---
MS/TELE/RN PATIENT REFUSED TO BE CLEANED, REFUSED VITAL SIGNS.
--- NOTE | 2021-11-15 07:45 | NUR ---
POURER METAL OPENING NOTES PATIENT RECEIVED IN BED SLEEPING. A/O X 1-2, CONFUSED. SEIZURE ALERT. ATIVAN TO BE ADMINISTERED NEEDED FOR SEIZURE ACTIVITY. SINUS RHYTHM 95 BPM. IV ACCESS TO INDIA, #20G, NS RUNNING AT 75 ML/HR. LEFT CHEST PORTACATH ACCESS. NEURO CONSULT SCHEDULED FOR TODAY. SAFETY MEASURES IN PLACE: BED IN LOWEST LOCKED POSITION, SIDE RAILS X 2, CALL LIGHT AND TABLE WITHIN EASY REACH. WILL CONTINUE TO MONITOR.
[2021-11-15 08:00] VITALS: BP 132/71
[2021-11-15 08:20] LABS: BILIRUBIN,TOTAL 0.2 mg/dL (0.2-1.0); POTASSIUM 4.3 mmol/L (3.5-5.1)
[2021-11-15 08:38] LABS: ALBUMIN 2.3 g/dL (3.4-5.0); CALCIUM, SERUM 8.8 mg/dL (8.5-10.1); CREATININE 0.6 mg/dL (0.6-1.3); MAGNESIUM 2.1 mg/dL (1.8-2.4); TOTAL PROTEIN, SERUM 7.5 g/dL (6.4-8.2)
[2021-11-15] MEDS ORDERED: Medication Not On Formulary EA (Levetiracetam 500 MG) PO SCH (09:00)
[2021-11-15] MEDS: DOCUSATE SODIUM 100 MG CAPSULE PO SCH ×2 (09:23→16:53)
[2021-11-15] MEDS: QUETIAPINE FUMARATE 100 MG TABLET PO SCH ×4 (09:24→21:22)
[2021-11-15] MEDS: POTASSIUM CHLORIDE 20 MEQ TAB.PRT.SR PO SCH (09:24)
[2021-11-15] MEDS: DIVALPROEX SODIUM 250 MG TABLET.DR PO SCH ×4 (09:24→21:21)
[2021-11-15] MEDS: ASCORBIC ACID 500 MG TABLET PO SCH ×2 (09:25→16:53)
[2021-11-15] MEDS: FLUOXETINE HCL 20 MG CAPSULE PO SCH (09:25)
[2021-11-15] MEDS: BENZTROPINE MESYLATE (1 MG) 1 MG TABLET PO SCH ×2 (09:26→16:52)
[2021-11-15] MEDS: LEVETIRACETAM (250 MG) 250 MG TABLET PO SCH ×2 (09:26→21:22)
[2021-11-15] MEDS: clonazePAM 1 MG TABLET PO SCH ×3 (09:26→16:53)
[2021-11-15] MEDS: FUROSEMIDE 40 MG TABLET PO SCH (09:26)
--- NOTE | 2021-11-15 10:05 | NUR ---
WOUND CARE CONSULT: PT PRESENTS WITH INCONTINENCE AND SOME AREAS OF SKIN DISCOLORATION, MOISTURE ASSOCIATED SKIN DAMAGE FROM INCONTINENCE. RECOMMENDATIONS MADE FOR SKIN PROTECTION. DISCUSSED WITH NURSING STAFF. PT REFUSED TO HAVE LEG WRAPS REMOVED. PT IS ON [place] ISOFLEX LOW AIRLOSS BED. MD IN AGREEMENT WITH PLAN OF CARE.
--- NOTE | 2021-11-15 10:31 | NUR ---
RN NOTES APPLIED PUREWICK EXTERNAL CATHETER TO PT PER WOUND NURSE RECOMMENDATION
[2021-11-15] MEDS: Z GUARD REMEDY 4 OZ OINT TP PRN (11:14)
[2021-11-15] MEDS: Z GUARD REMEDY 4 OZ OINT TP SCH (11:15)
[2021-11-15 11:25] LABS: BASOPHILS % (AUTO) 0.5 % (0.0-2.0); HEMATOCRIT 30 % (33-45); HEMOGLOBIN 9.5 g/dL (11.5-14.8); LYMPHOCYTES # (AUTO) 1.7 K/uL (0.8-4.8); LYMPHOCYTES % (AUTO) 19.7 % (20.0-44.0); MEAN CORPUSCULAR HGB CONC 32 g/dl (31.0-36.0); MEAN CORPUSCULAR VOLUME 89 fL (82-100); MONOCYTES # (AUTO) 0.8 K/uL (0.1-1.30); NEUTROPHILS # (AUTO) 5.7 K/uL (1.8-8.9); NEUTROPHILS % (AUTO) 67.8 % (43.0-81.0); PLATELET COUNT (AUTO) 194 K/uL (150-450); RED BLOOD CELL COUNT(AUTO) 3.38 MIL/uL (4.0-5.2); WHITE BLOOD COUNT (AUTO) 8.4 K/uL (4.3-11.0)
[2021-11-15 15:27] VITALS: BP 98/57
[2021-11-15] MEDS: RIVAROXABAN 10 MG TABLET PO SCH (16:52)
[2021-11-15] MEDS: IV NS 0.9% 1,000 ML IV PRN (17:01)
--- NOTE | 2021-11-15 18:39 | NUR ---
BEFORE AND AFTER SCHOOL DAYCARE WORKER CLOSING NOTES PATIENT IN BED SLEEPING. A/O X 1-2, CONFUSED. SEIZURE ALERT. SINUS RYTHM 95 BPM. IV ACCESS TO TO INDIA, #20G, NS RUNNING AT 75 ML/HR. LEFT CHEST PORTACATH ACCESS. PATIENT RECEIVED ALL MEDICATION ORDERED. SAFETY MEASURES TAKEN; BED IN LOWEST LOCKED POSITION, SIDE RAILS UP X 2, CALL LIGHT AND TABLE WITHIN EASY REACH. WILL ENDORSE TO CULL GRADER FOR CONTINUITY OF CARE.
--- NOTE | 2021-11-15 19:50 | NUR ---
RESEARCH STUDY ASSISTANT OPENING NOTES PATIENT RECEIVED IN BED SLEEPING BUT EASY TO AROUSED,A/O X 1-2, CONFUSED,ON 2L O2 VIA NC SAKINA WELL NO SIGN SOB/DISTRESS NOTED,IV ACCESS TO INDIA, #20G,PATENT AND INTACT,SAFETY MEASURES IN PLACE: BED IN LOWEST LOCKED POSITION, SIDE RAILS X 2, CALL LIGHT AND TABLE WITHIN EASY REACH. WILL CONTINUE TO MONITOR.
[2021-11-15 20:00] VITALS: BP 94/51
[2021-11-15] MEDS: ZOLPIDEM TARTRATE 5 MG TABLET PO SCH (21:21)
[2021-11-16] VITALS: BP 116/66
[2021-11-16 04:00] VITALS: BP 121/58
[2021-11-16] MEDS: IV NS 0.9% 1,000 ML IV PRN (06:14)
[2021-11-16 06:25] LABS: BASOPHILS % (AUTO) 0.5 % (0.0-2.0); EOSINOPHILS % (AUTO) 2.3 % (0.0-6.0); HEMATOCRIT 24 % (33-45); HEMOGLOBIN 7.5 g/dL (11.5-14.8); LYMPHOCYTES # (AUTO) 1.5 K/uL (0.8-4.8); MEAN CORPUSCULAR HGB CONC 32 g/dl (31.0-36.0); MEAN CORPUSCULAR VOLUME 89 fL (82-100); MONOCYTES # (AUTO) 0.7 K/uL (0.1-1.30); NEUTROPHILS # (AUTO) 4.5 K/uL (1.8-8.9); NEUTROPHILS % (AUTO) 65.2 % (43.0-81.0); PLATELET COUNT (AUTO) 169 K/uL (150-450); RED BLOOD CELL COUNT(AUTO) 2.67 MIL/uL (4.0-5.2); WHITE BLOOD COUNT (AUTO) 6.9 K/uL (4.3-11.0)
--- NOTE | 2021-11-16 06:25 | NUR ---
SUPERVISOR WOUND CLOSING NOTES; PATIENT IN BED SLEEPING BUT EASY TO AROUSED,A/O X3,ON 2L O2 VIA NC SAKINA WELL NO SIGN SOB/DISTRESS NOTED,NO COMPLAINE OF PAIN/DISCOMFORT DURING SHIFT,DUE MEDS GIVEN ORDER,IV ACCESS TO INDIA, #20G,PATENT AND INTACT,SAFETY MEASURES IN PLACE: BED IN LOWEST LOCKED POSITION, SIDE RAILS X 2, CALL LIGHT AND TABLE WITHIN EASY REACH. WILL ENDORSED TO NEXT SHIFT.
[2021-11-16 07:15] LABS: CREATININE 0.5 mg/dL (0.6-1.3); POTASSIUM 3.6 mmol/L (3.5-5.1)
--- NOTE | 2021-11-16 07:30 | NUR ---
CLASSIFIER OPERATOR OPENING NOTES RECEIVED PATIENT IN BED THIS MORNING. A/O X 3. NO SEIZURE ACTIVITY REPORTED FROM YESTERDAY NOR LAST NIGHT. TELE SR 97 BPM. IV ACCESS TO INDIA, #20G AND A LEFT CHEST PORTACATH ACCESS. PT EVALUATION SCHEDULED FOR THIS MORNING. WOUND RN DISCUSSED REMOVAL OF LEG WRAPS WITH THE DIRECTOR AND THEY ARE TO BE REMOVED AFTER PT IS FINISHED WALKING WITH HER. SAFETY MEASURES IN PLACE: BED IN LOWEST, LOCKED POSITION, SIDE RAILS X 2, CALL LIGHT AND TABLE WITHIN EASY REACH. WILL CONTINUE TO MONITOR.
[2021-11-16 08:00] VITALS: BP 132/58
[2021-11-16] MEDS: FUROSEMIDE 40 MG TABLET PO SCH (09:34)
[2021-11-16] MEDS: DIVALPROEX SODIUM 250 MG TABLET.DR PO SCH ×4 (09:34→21:09)
[2021-11-16] MEDS: clonazePAM 1 MG TABLET PO SCH ×3 (09:34→16:22)
[2021-11-16] MEDS: QUETIAPINE FUMARATE 100 MG TABLET PO SCH ×4 (09:34→21:09)
[2021-11-16] MEDS: BENZTROPINE MESYLATE (1 MG) 1 MG TABLET PO SCH ×2 (09:34→16:22)
[2021-11-16] MEDS: ASCORBIC ACID 500 MG TABLET PO SCH ×2 (09:34→16:34)
[2021-11-16] MEDS: FLUOXETINE HCL 20 MG CAPSULE PO SCH (09:34)
[2021-11-16] MEDS: POTASSIUM CHLORIDE 20 MEQ TAB.PRT.SR PO SCH (09:34)
[2021-11-16] MEDS: DOCUSATE SODIUM 100 MG CAPSULE PO SCH ×2 (09:34→16:22)
[2021-11-16] MEDS: LEVETIRACETAM (250 MG) 250 MG TABLET PO SCH ×2 (09:34→21:09)
[2021-11-16] MEDS: Z GUARD REMEDY 4 OZ OINT TP SCH (09:44)
--- NOTE | 2021-11-16 11:36 | NUR ---
PATIENT JUST RECEIVED 2 MG ATIVAN IVP. SHE MENTIONED TO RN THAT SHE HAD A SEIZURE EARLIER AND STATED SHE WOULD LIKE THE ATIVAN. THE SEIZURE WAS UNWITNESSED BY NURSING STAFF AND PATIENT IS A/O X 3. WILL CONTINUE TO MONITOR.
[2021-11-16 11:37] VITALS: BP 130/64
[2021-11-16 13:03] LABS: EOSINOPHILS % (MANUAL) 3 % (0-4); LYMPHOCYTES % (MANUAL) 30 % (16-48); MONOCYTES % (MANUAL) 6 % (0-11.0); NEUTROPHILS % (MANUAL) 61 (42-76)
[2021-11-16 16:00] VITALS: BP 117/70
[2021-11-16] MEDS: RIVAROXABAN 10 MG TABLET PO SCH (16:21)
--- NOTE | 2021-11-16 18:49 | NUR ---
MEDICAL BILLING SUPERVISOR CLOSING NOTES PATIENT IN BED SLEEPING BUT EASILY AROUSABLE. A/O X3,ON 2L O2 VIA NC SAKINA WELL NO SIGN SOB/DISTRESS NOTED,NO COMPLAINTS OF PAIN/DISCOMFORT DURING SHIFT,DUE MEDS GIVEN ORDER,IV ACCESS TO INDIA, #20G,PATENT AND INTACT. SINUS RHTHYM 89 BPM. SAFETY MEASURES IN PLACE: BED IN LOWEST LOCKED POSITION, SIDE RAILS X 2, CALL LIGHT AND TABLE WITHIN EASY REACH. WILL ENDORSED TO NEXT SHIFT.
--- NOTE | 2021-11-16 19:41 | NUR ---
RN OPENING NOTES; PATIENT RECEIVED IN BED SLEEPING BUT EASY TO AROUSED,A/O X2,WITH CONFUSED,ON 2L O2 VIA NC SAKINA WELL NO SIGN SOB/DISTRESS NOTED,IV ACCESS TO INDIA, #20G,PATENT AND INTACT,SAFETY MEASURES IN PLACE: BED IN LOWEST LOCKED POSITION, SIDE RAILS X 2, CALL LIGHT AND TABLE WITHIN EASY REACH. WILL CONTINUE TO MONITOR.
[2021-11-16 20:09] VITALS: BP 110/69
[2021-11-16] MEDS: ZOLPIDEM TARTRATE 5 MG TABLET PO SCH (21:10)
[2021-11-17] VITALS: BP 123/65
[2021-11-17 04:00] VITALS: BP 114/67
--- NOTE | 2021-11-17 07:30 | NUR ---
OCCUPATIONAL SAFETY SPECIALIST NOTES PT IN BED, AWAKE, ALERT AND VERBALLY RESPONSIVE, DENIES PAIN, NOT IN DISTRESS, CALL LIGHT WITHIN REACH, NEEDS ATTENDED, ASSISTED WITH MEALS.
[2021-11-17 08:00] VITALS: BP 123/55
[2021-11-17] MEDS ORDERED: LEVE250T2 PO (08:42)
[2021-11-17] MEDS: FLUOXETINE HCL 20 MG CAPSULE PO SCH (09:19)
[2021-11-17] MEDS: clonazePAM 1 MG TABLET PO SCH ×3 (09:19→16:32)
[2021-11-17] MEDS: LEVETIRACETAM (250 MG) 250 MG TABLET PO SCH ×2 (09:19→21:25)
[2021-11-17] MEDS: POTASSIUM CHLORIDE 20 MEQ TAB.PRT.SR PO SCH (09:20)
[2021-11-17] MEDS: ASCORBIC ACID 500 MG TABLET PO SCH ×2 (09:20→16:38)
[2021-11-17] MEDS: BENZTROPINE MESYLATE (1 MG) 1 MG TABLET PO SCH ×2 (09:20→16:39)
[2021-11-17] MEDS: DOCUSATE SODIUM 100 MG CAPSULE PO SCH ×2 (09:20→16:33)
[2021-11-17] MEDS: QUETIAPINE FUMARATE 100 MG TABLET PO SCH ×4 (09:20→21:25)
[2021-11-17] MEDS: FUROSEMIDE 40 MG TABLET PO SCH (09:20)
[2021-11-17] MEDS: DIVALPROEX SODIUM 250 MG TABLET.DR PO SCH ×3 (09:21→21:24)
[2021-11-17] MEDS: Z GUARD REMEDY 4 OZ OINT TP SCH (09:28)
--- NOTE | 2021-11-17 09:35 | NUR ---
LANDING SUPPORT SPECIALIST NOTES PT HAD A WITNESSED SEIZURE LASTING 3 MINUTES, PT AWAKE AND ALERT NOW, VITAL SIGNS STABLE, DR. WHITESIDE INFORMED, ORDERED TO HOLD DISCHARGE, NEUROLOGY CONSULT ORDERED.
[2021-11-17] MEDS: LORAZEPAM INJ 2 MG/ML VIAL IV PRN ×2 (09:51→19:52)
[2021-11-17 10:51] LABS: BASOPHILS % (AUTO) 0.4 % (0.0-2.0); HEMATOCRIT 30 % (33-45); HEMOGLOBIN 9.4 g/dL (11.5-14.8); LYMPHOCYTES # (AUTO) 1.5 K/uL (0.8-4.8); MEAN CORPUSCULAR HGB CONC 32 g/dl (31.0-36.0); MEAN CORPUSCULAR VOLUME 89 fL (82-100); MONOCYTES # (AUTO) 0.9 K/uL (0.1-1.30); MONOCYTES % (AUTO) 9.4 % (2.0-12.0); NEUTROPHILS # (AUTO) 6.8 K/uL (1.8-8.9); NEUTROPHILS % (AUTO) 72.2 % (43.0-81.0); PLATELET COUNT (AUTO) 204 K/uL (150-450); RED BLOOD CELL COUNT(AUTO) 3.34 MIL/uL (4.0-5.2); WHITE BLOOD COUNT (AUTO) 9.4 K/uL (4.3-11.0)
[2021-11-17] MEDS: IV NS 0.9% 1,000 ML IV PRN (14:00)
[2021-11-17 16:00] VITALS: BP 144/85
[2021-11-17] MEDS: RIVAROXABAN 10 MG TABLET PO SCH (16:38)
--- NOTE | 2021-11-17 18:32 | NUR ---
PARKING METER SERVICER NOTES PT IN BED, RESTING, NO COMPLAINT OF PAIN OR ANY DISCOMFORT AT THIS TIME, BREATHING PATTERN NORMAL, CALL LIGHT WITHIN REACH, NO FURTHER SEIZURE EPISODE NOTED AT THIS TIME, SEEN BY DR. VICTOR TODAY, RECOMMENDATIONS GIVEN, PM CARE PROVIDED, IV FLUIDS INFUSING WELL, ALL NEEDS ATTENDED.
--- NOTE | 2021-11-17 19:45 | NUR ---
RN NOTES: -WHILE WE ARE DOING ENDORSEMENT FROM THE OUTGOING NURSE, SHE WAS STARING ON THE FLOOR BLANKLY, TAKE MORE THAN 10 SECONDS BEFORE SHE RESPOND VERBALLY WHEN RN WAS ASKING HER, SHE STARTED TO RESPOND SLOWLY AND SHE LOOKS SO SLEEPY AND DROWSY AFTER THAT, SHE WAS VERBALIZING TO RN , "I JUST HAD A SEIZURE", PLACED IN COMFORTABLE POSITION AND OUTGOING RN PULLED FROM OMNICEL HER PRN MEDS FOR SEIZURE.GIVEN BEFORE SHE LEFT FOR ENDORSEMENT. -ON TELE MONITOR- SR RATE-91, O2 INHALATION AT 2L/MIN VIA NC, NO SOB AT THIS SPO2-99%, ON PURE WICK, IV CANNULA ON THE INDIA G#20 WITH NS ONGOING AT 75 ML/HR VIA INFUSION PUMP.KEPT ON CLOSE WATCH.ORIENTED TO UNIT AND STAFF ABLE TO VERBALIZED NEEDS. -FALL, SAFETY, ASPIRATION AND SEIZURE PRECAUTION OBSERVED, SIDE, RAILS ARE ALL PADDED.KEPT CALL LIGHT IN EASY REACH.
[2021-11-17 20:00] VITALS: BP 111/69
--- NOTE | 2021-11-17 21:35 | NUR ---
RN NOTES: -ABLE TO WAKE UP AND TAKE HER MEDICATION WITH APPLE SAUCE, ASPIRATION PRECAUTION OBSERVED, KEPT IN SEMI TO HIGH FOWLERS POSITION.
[2021-11-17] MEDS: ZOLPIDEM TARTRATE 5 MG TABLET PO SCH ×2 (22:31→22:35)
--- NOTE | 2021-11-17 22:35 | NUR ---
JOEY NOTES: -WHEN SHE TOOK HER ORAL MEDS AT AROUND 2134 SHE IS MORE AWAKE AND SHE EAT SOME SANDWICH AND SNACKS, RIGHT NOW SHE IS IN DEEP SLEEP., SHE IS RESTING, ZOLPIDEM NOT GIVEN., RETURNED TO OMNICEL. Addendum: 11/17/21 at 2244 by MARAL OROPEZA RN ADDED NOTES: ZOLPIDEM RETURNED TO OMNICEL, WITNESSED BY JOEY/WHITNEY.
[2021-11-18] VITALS: BP 125/71
[2021-11-18] MEDS: IV NS 0.9% 1,000 ML IV PRN (02:45)
--- NOTE | 2021-11-18 02:47 | NUR ---
RN NOTES: IVF CONSUMED, STARTED WITH NEW BAG OF IV NS AT 75 ML/HR.
[2021-11-18 04:00] VITALS: BP 130/71
[2021-11-18] MEDS: DIVALPROEX SODIUM 250 MG TABLET.DR PO SCH ×2 (05:06→14:54)
--- NOTE | 2021-11-18 05:46 | NUR ---
RN NOTES: AROUND 519PM AFTER MORNING CARE DONE, CLEAN HER AND DO DRESSING, SHE HAD 1 EPISODE OF GRAND MAL SEIZURE, HER ENTIRE BODY MOVE AND AFTER 10 SEONDS IT STOP AND SHE HAD DROOLING OF THE SALIVA, KEPT OF SIDE LYING POSITION,AFTER 10 TO 15 MINS, SHE RETURNED OF HER NORMAL LEVEL OF CONSCIOUSNESS,UNABLE TO RECALL WHAT HAPPEN SHE ASKED THE RN "WHERE I AM?" ORIENTED TO UNIT AND STAFF, SHE WAS ABLE TO TAKE HER ORAL MEDICATION AND SHE ASKED FOR MILK AND SAMUEL CRACKERS, RN FEED HER ASPIRATION PRECAUTION OBSERVED, SHE LOOKS MORE AWARE AND ALERT. -CHARGE NURSE NOTIFIED OF THE SEIZURE EPISODE, WILL ENDORSED TO MORNING SHIFT TO F/U WITH NEURO FOR EEG. Addendum: 11/18/21 at 0634 by MARAL OROPEZA RN ADDED NOTES: TIME CORRECTION IT IS 0519 AM NOT PM.
--- NOTE | 2021-11-18 06:40 | NUR ---
RN NOTES: -2 SUPERVISOR EXTRUSION CAME AND TRIED TO EXTRACT BLOOD SHE IS A HARD STICK, RN TRIED TO FLUSHED AND USE THE PORT A CATH IT LOOKS LIKE CLOGGED, TRIED REPOSITIONING AND MOVING THE NEEDLE BUT UNABLE TO EXTRACT BLOOD, RN/CHARGE NURSE NOTIFIED. -SUPERVISOR EXTRUSION WILL RETURN BACK AFTER BREAKFAST AND WILL TRY AGAIN. -WILL NOTIFY NEXT SHIFT FOR F/U.
--- NOTE | 2021-11-18 06:55 | NUR ---
RN NOTES: -AWAKE, WAITING FOR HER BREAKFAST TO BE SERVED, ON CLOSE WATCH, SEIZURE PRECAUTION OBSERVED, FOR LABS THIS MORNING, TO F/U BLOOD EXTRACTION AND TO F/U WITH NEUROLOGIST FOR PLAN OF EEG SECONDARY TO SEIZURE.NO SIGN OF RESPIRATORY DISTRESS, ENDORSED FOR CONTINUITY OF CARE.
[2021-11-18 08:00] VITALS: BP 109/58
[2021-11-18] MEDS: QUETIAPINE FUMARATE 100 MG TABLET PO SCH ×2 (09:51→14:54)
[2021-11-18] MEDS: LEVETIRACETAM (250 MG) 250 MG TABLET PO SCH (09:52)
[2021-11-18] MEDS: ASCORBIC ACID 500 MG TABLET PO SCH (09:52)
[2021-11-18] MEDS: DOCUSATE SODIUM 100 MG CAPSULE PO SCH (09:52)
[2021-11-18] MEDS: FUROSEMIDE 40 MG TABLET PO SCH (09:53)
[2021-11-18] MEDS: clonazePAM 1 MG TABLET PO SCH ×2 (09:53→14:55)
[2021-11-18] MEDS: FLUOXETINE HCL 20 MG CAPSULE PO SCH (09:53)
[2021-11-18] MEDS: POTASSIUM CHLORIDE 20 MEQ TAB.PRT.SR PO SCH (09:53)
[2021-11-18] MEDS: BENZTROPINE MESYLATE (1 MG) 1 MG TABLET PO SCH (09:53)
[2021-11-18] MEDS: Z GUARD REMEDY 4 OZ OINT TP PRN (09:54)
[2021-11-18] MEDS: Z GUARD REMEDY 4 OZ OINT TP SCH (09:55)
[2021-11-18] MEDS ORDERED: DIVA500T2 PO (10:09)
[2021-11-18 12:00] VITALS: BP 120/74
[2021-11-18 16:01] VITALS: BP 136/83
--- NOTE | 2021-11-18 18:07 | NUR ---
[employer]STRUMENT [employer] SUPERVISOR NOTE PATIENT DISCHARGED FROM FACILITY @ 1805 AND TRANSFERRED BACK TO [facility]IA AMBULANCE. IV ACCESS TAKEN OUT AND HIDES INSPECTOR TAKEN OFF. NO BELONGINGS OTHER THAN EYE GLASSES. REPORT GIVEN TO RECEIVING NURSE ADRIAN @ FACILITY.
== END 2021-11-18 18:00 | DRG 100 ==
LOC: ER 16:18 → TELE 22:20
PROVIDERS: ADMIT Internal Medicine; ATTEND Internal Medicine
DX: G40.909 Epilepsy, unspecified, not intractable, without status epilepticus (principal); G92.8 Other toxic encephalopathy; E44.0 Moderate protein-calorie malnutrition; Z68.42 Body mass index [BMI] 45.0-49.9, adult; I48.91 Unspecified atrial fibrillation; E66.01 Morbid (severe) obesity due to excess calories; I11.0 Hypertensive heart disease with heart failure; I50.9 Heart failure, unspecified; Z79.01 Long term (current) use of anticoagulants; Z95.810 Presence of automatic (implantable) cardiac defibrillator; D64.9 Anemia, unspecified; F20.9 Schizophrenia, unspecified; F32.A Depression, unspecified; Z78.0 Asymptomatic menopausal state; F79 Unspecified intellectual disabilities; Z88.0 Allergy status to penicillin; Z88.8 Allergy status to other drugs, medicaments and biological substances; Z91.018 Allergy to other foods; Z79.899 Other long term (current) drug therapy; E88.09 Other disorders of plasma-protein metabolism, not elsewhere classified; D72.829 Elevated white blood cell count, unspecified; F29 Unspecified psychosis not due to a substance or known physiological condition
CPT/HCPCS: 36415; 70450-TC; 80048-TC; 80053-TC; 80076-TC; 80164-TC; 80177; 82962-TC; 83605-TC; 83735-TC; 84100-TC; 85025-TC; 87081-TC; 94799-TC; A6403; C9803; G0378; G0480; J1953; J2060; J7030

== ENCOUNTER 2021-11-18 18:43 | Emergency (ER) | payer MEDICARE, OTHER ==
[~2021-11-18] VITALS: Ht 172.7 cm; Wt 143.8 kg
[~2021-11-18 18:43] MED LIST changes: +DIVA500T2 PO; +LEVE250T2 PO
--- NOTE | 2021-11-18 19:50 | NUR ---
RECEIVED PT IN BED 2. FROM [facility] C/O SEIZURE. PT IS AAOX1. NON AMBULATORY. CONNECTED TO MONITOR. SEIZURE PRECAUTIONS IN PLACE. WILL CONTINUE TO MONITOR.
--- NOTE | 2021-11-18 19:52 | NUR ---
LAB AT BEDSIDE
[2021-11-18 20:28] LABS: BASOPHILS % (AUTO) 0.3 % (0.0-2.0); EOSINOPHILS % (AUTO) 2.1 % (0.0-6.0); HEMATOCRIT 32 % (33-45); HEMOGLOBIN 10.3 g/dL (11.5-14.8); LYMPHOCYTES # (AUTO) 1.4 K/uL (0.8-4.8); MEAN CORPUSCULAR HGB CONC 33 g/dl (31.0-36.0); MEAN CORPUSCULAR VOLUME 87 fL (82-100); MONOCYTES # (AUTO) 0.8 K/uL (0.1-1.30); MONOCYTES % (AUTO) 8.7 % (2.0-12.0); NEUTROPHILS % (AUTO) 73.9 % (43.0-81.0); PLATELET COUNT (AUTO) 269 K/uL (150-450); RED BLOOD CELL COUNT(AUTO) 3.65 MIL/uL (4.0-5.2); WHITE BLOOD COUNT (AUTO) 9.5 K/uL (4.3-11.0)
[2021-11-18 20:39] LABS: CALCIUM, SERUM 8.9 mg/dL (8.5-10.1); CREATININE 0.6 mg/dL (0.6-1.3); POTASSIUM 3.8 mmol/L (3.5-5.1)
--- NOTE | 2021-11-18 22:26 | NUR ---
NOTIFIED BY [facility] THAT THERE IS NO BARIATRIC GURNEY AVAILABLE.
--- NOTE | 2021-11-18 22:26 | NUR ---
Vinod farias in [facility] - 11/18/21 at 2228 by [facility] ETA 90 MINUTES - 2 HOURS.
--- NOTE | 2021-11-18 22:30 | NUR ---
S/W SAQIB FROM [facility] @[phone] NOTIFIED PT IS CLEARED TO RETURN TO FACILITY BY NEUROLOGIST
--- NOTE | 2021-11-18 22:37 | NUR ---
CALLED [facility], NO BARIATRIC GURNEYS AVAILABLE.
--- NOTE | 2021-11-18 22:53 | NUR ---
CALLED [facility], NO BARIATRIC GURNEYS AVAILABLE.
--- NOTE | 2021-11-18 22:56 | NUR ---
[facility], NO BARI[facility]IC GURNEYS AVAILABLE.
--- NOTE | 2021-11-18 22:58 | NUR ---
CALLED [facility], NO BARIATRIC GURNEYS AVAILABLE.
--- NOTE | 2021-11-18 23:00 | NUR ---
CALLED [facility], NO BARIATRIC GURNEYS AVAILABLE.
--- NOTE | 2021-11-18 23:01 | NUR ---
CALLED [facility], NO BARIATRIC GURNEYS AVAILABLE.
--- NOTE | 2021-11-18 23:06 | NUR ---
CALLED [facility], NO BARIATRIC GURNEYS AVAILABLE.
--- NOTE | 2021-11-18 23:10 | NUR ---
CALLED [facility], NO BARIATRIC GURNEYS AVAILABLE.
--- NOTE | 2021-11-18 23:12 | NUR ---
CALLED [facility], NO BARIATRIC GURNEYS AVAILABLE.
--- NOTE | 2021-11-18 23:14 | NUR ---
CALLED [facility], NO BARIATRIC GURNEYS AVAILABLE.
--- NOTE | 2021-11-18 23:18 | NUR ---
CALLED [facility], NO BARIATRIC GURNEYS AVAILABLE.
--- NOTE | 2021-11-18 23:46 | NUR ---
CALLED [facility], ON HOLD FOR OVER AN HOUR.
--- NOTE | 2021-11-19 07:58 | NUR ---
[facility] CALLED ETA 0945 PER ROXANE.
[2021-11-19] MEDS ORDERED: OLANZAPINE 10 MG VIAL IM ONE ×2 (08:52→09:00)
--- NOTE | 2021-11-19 10:08 | NUR ---
ATTEMPTED TO GIVE REPORT, JULIANE IN CHARGE IS NOT AVAILABLE
[2021-11-19 10:14] VITALS: BP 128/77
--- NOTE | 2021-11-19 10:15 | NUR ---
patient picked up by private ambulance in no distress going [facility].
== END 2021-11-19 10:15 ==
LOC: ER 19:08
DX: G40.909 Epilepsy, unspecified, not intractable, without status epilepticus (principal); I10 Essential (primary) hypertension; Z88.0 Allergy status to penicillin; Z88.8 Allergy status to other drugs, medicaments and biological substances; Z79.899 Other long term (current) drug therapy
CPT/HCPCS: 99283; 85025; 80048; 36415; 82962; 96372; J3490

== ENCOUNTER 2021-11-29 18:24 | Inpatient (IN) | payer MEDICARE, OTHER ==
[~2021-11-29] VITALS: Ht 172.7 cm; Wt 121.6 kg
[~2021-11-29 18:24] MED LIST changes: -DIVA250T4 PO
--- NOTE | 2021-11-29 18:31 | NUR ---
JOSH VIRGEN FROM [facility] DUE TO WEAKNESS AND HYPERGLYCEMIA. PT IS A&OX0. PT BLOOD GLUCOSE WAS 110. TEMPERATIRE IS 54.8 RECTAL BEAR HUGGER APPLIED TO PT. PT ATTACHED TO MONITOR. AWAITING MD ORDERS.
--- NOTE | 2021-11-29 19:10 | NUR ---
REC'D REPORT FROM JOEY GODOY FOR TREY
--- NOTE | 2021-11-29 20:33 | NUR ---
LAB AT BEDSIDE
--- NOTE | 2021-11-29 20:58 | NUR ---
RT AT BEDSIDE FOR ABG
[2021-11-29 21:09] LABS: BASOPHILS % (AUTO) 0.4 % (0.0-2.0); EOSINOPHILS % (AUTO) 2.8 % (0.0-6.0); HEMATOCRIT 32 % (33-45); HEMOGLOBIN 10.3 g/dL (11.5-14.8); LYMPHOCYTES # (AUTO) 1.7 K/uL (0.8-4.8); LYMPHOCYTES % (AUTO) 25.5 % (20.0-44.0); MEAN CORPUSCULAR HGB CONC 32 g/dl (31.0-36.0); MEAN CORPUSCULAR VOLUME 87 fL (82-100); MONOCYTES # (AUTO) 0.8 K/uL (0.1-1.30); MONOCYTES % (AUTO) 11.6 % (2.0-12.0); NEUTROPHILS # (AUTO) 3.9 K/uL (1.8-8.9); NEUTROPHILS % (AUTO) 59.7 % (43.0-81.0); PLATELET COUNT (AUTO) 229 K/uL (150-450); RED BLOOD CELL COUNT(AUTO) 3.67 MIL/uL (4.0-5.2); WHITE BLOOD COUNT (AUTO) 6.5 K/uL (4.3-11.0)
[2021-11-29 21:13] LABS: ABG PCO2 47.2 mmHg (35.0-45.0); ABG PH 7.411 (7.350-7.450); ABG PO2 78.4 mmHg (75.0-100.0); COHb 0.1 % (0.5-1.5); MetHb 0.1 % (0.0-1.5); O2Hb 94.4 % (94.0-97.0); SITE, ABG Right Radial; VENT MODE, BG Room Air
[2021-11-29 21:27] LABS: CALCIUM, SERUM 9.7 mg/dL (8.5-10.1); CARBON DIOXIDE 31 mmol/L (21-32); CHLORIDE 103 mmol/L (98-107); CREATININE 0.8 mg/dL (0.6-1.3); GLUCOSE 100 mg/dL (74-106); POTASSIUM 3.5 mmol/L (3.5-5.1); SODIUM SERUM 142 mmol/L (136-145); UREA NITROGEN, BLOOD 23 mg/dL (7-18)
[2021-11-29 21:28] LABS: MAGNESIUM 2.2 mg/dL (1.8-2.4)
[2021-11-29] MEDS ORDERED: AZTREONAM 1 G in IV NS 0.9% 100 ML IV ONE (22:30)
[2021-11-29] MEDS ORDERED: VANCOMYCIN 1 GM in IV D5W 250 ML IV ONE (22:30)
[2021-11-29] MEDS ORDERED: BISACODYL (5 MG) 5 MG TABLET.DR PO PRN (23:00)
[2021-11-29] MEDS ORDERED: AZTREONAM 1 G VIAL ONE (23:03)
[2021-11-29] MEDS ORDERED: Z GUARD REMEDY 4 OZ OINT TP PRN (23:30)
[2021-11-29] MEDS ORDERED: ONDANSETRON HCL/PF 4 MG/2 ML VIAL IVP PRN (23:30)
[2021-11-29] MEDS ORDERED: ACETAMINOPHEN 325 MG TABLET PO PRN (23:30)
[2021-11-29] MEDS ORDERED: MAGNESIUM HYDROXIDE 30 ML UDC PO PRN (23:30)
[2021-11-29] MEDS ORDERED: MAG HYDROX/AL HYDROX/SIMETH 30 ML UDC PO PRN (23:30)
[2021-11-29 23:42] LABS: ALANINE AMINOTRANSFERASE 31 U/L (12-78); ALBUMIN 2.8 g/dL (3.4-5.0); ALKALINE PHOSPHATASE 108 U/L (46-116); ASPARTATE AMINOTRANSFERASE 26 U/L (15-37); BILIRUBIN,DIRECT 0.1 mg/dL (0.0-0.2); BILIRUBIN,TOTAL 0.2 mg/dL (0.2-1.0); TOTAL PROTEIN, SERUM 8.6 g/dL (6.4-8.2)
--- NOTE | 2021-11-29 23:43 | NUR ---
RECEIVED BED 113-2
[2021-11-29] MEDS ORDERED: VANCOMYCIN 1 GM VIAL ONE (23:56)
--- NOTE | 2021-11-30 00:35 | NUR ---
GAVE REPORT TO JOEY LACKEY FOR TREY
--- NOTE | 2021-11-30 00:39 | NUR ---
RN NOTE RECEIVED REPORT FROM RN SUPPLEMENTALJOEY PICKERING.
[2021-11-30 00:45] VITALS: BP 140/76
--- NOTE | 2021-11-30 00:58 | NUR ---
RN INITIAL NOTE PT ARRIVED TO UNIT VIA GURNEY. PT OBTUNDED, NON-VERBAL, BUT NOTED TO RESPOND TO PAIN. PT PLACED ON 2L NC D/T ABG PCO2 OF 47.2; CURRENT O2SAT OF 100%; NO S/S OF RESP DISTRESS, NO SOB OR COUGH, NON-LABORED AND EQUAL BREATHING. PT ATTACHED TO EXTERNAL MONITOR, SR WITH HR OF 97. LEFT UPPER CHEST WALL PORT-A-CATH INTACT AND PATENT, FLUSHES EASILY WITH NO RESISTANCE; NS INFUSING AT 90 ML/HR. PICTURES TAKEN AND PLACED IN CHART; WOUND CONSULT REQUESTED; PT CLEANSED. BED IN LOWEST POSITION, CALL LIGHT WITHIN REACH, SIDE RAILS UP X2, RAILS PADDED. WILL INITIATE PLAN OF CARE.
[2021-11-30] MEDS ORDERED: VANCOMYCIN 1 GM in IV D5W 250ml IV ONE (01:00)
[2021-11-30] MEDS ORDERED: VANCOMYCIN 1 GM VIAL ONE (01:37)
[2021-11-30] MEDS: IV NS 0.9% 1,000 ML IV PRN ×2 (01:37→15:24)
[2021-11-30 04:00] VITALS: BP 123/69
[2021-11-30] MEDS: DIVALPROEX SODIUM 500 MG TABLET.DR PO SCH ×3 (05:00→20:44)
[2021-11-30] MEDS ORDERED: CEFEPIME 2 GM in IV D5W 100 ML IV SCH (05:00)
[2021-11-30] MEDS ORDERED: CEFEPIME 1 GM VIAL ONE (05:34)
--- NOTE | 2021-11-30 06:18 | NUR ---
BODY FINISHER CLOSING NOTE PT IN BED, MORE AWAKE COMPARED TO ARRIVING TO UNIT, A&O X2, CALM, COOPERATIVE. CONTINUES TO BE ON 2L NC WITH O2SAT STABLE AT 100% THROUGHOUT THE NIGHT; NO S/S OF RESP DISTRESS, NO SOB OR COUGH, NON-LABORED AND EQUAL BREATHING. ATTACHED TO EXTERNAL MONITOR SR WITH HR RANGING FROM 83-97 THROUGHOUT THE NIGHT. LEFT UPPER CHEST WALL PORT-A-CATH INTACT AND PATENT, FLUSHES EASILY WITH NO RESISTANCE; NS INFUSING AT 90 ML/HR WITH MAXIPIME AT 200 ML/HR. ALL DUE MEDS ADMINISTERED DURING THE NIGHT. BED IN LOWEST POSITION, CALL LIGHT WITHIN REACH, SIDE RAILS UP X2 AND PADDED. WILL ENDORSE TO DAYSHIFT NURSE TO CONTINUE CARE.
[2021-11-30 06:51] LABS: BASOPHILS % (AUTO) 0.3 % (0.0-2.0); EOSINOPHILS % (AUTO) 0.7 % (0.0-6.0); HEMATOCRIT 33 % (33-45); HEMOGLOBIN 10.4 g/dL (11.5-14.8); LYMPHOCYTES # (AUTO) 1.3 K/uL (0.8-4.8); LYMPHOCYTES % (AUTO) 12.1 % (20.0-44.0); MEAN CORPUSCULAR HGB CONC 32 g/dl (31.0-36.0); MEAN CORPUSCULAR VOLUME 88 fL (82-100); MONOCYTES # (AUTO) 1.1 K/uL (0.1-1.30); MONOCYTES % (AUTO) 10.1 % (2.0-12.0); NEUTROPHILS # (AUTO) 8.1 K/uL (1.8-8.9); NEUTROPHILS % (AUTO) 76.8 % (43.0-81.0); PLATELET COUNT (AUTO) 164 K/uL (150-450); RED BLOOD CELL COUNT(AUTO) 3.74 MIL/uL (4.0-5.2); WHITE BLOOD COUNT (AUTO) 10.6 K/uL (4.3-11.0)
--- NOTE | 2021-11-30 07:30 | NUR ---
TD RN AM NOTE PT IN BED, AO X 2, SLIGHTLY LETHARGIC, GARBLED SPEECH, RESPONDS TO PAIN. ON 2L NC, O2 97%. NO S/S OF RESP DISTRESS, NO SOB OR COUGH, BREATHING EVEN AND UNLABORED. SR HR 89 ON MONITOR. DENIES CHEST PAIN OR DISCOMFORT, LEFT UPPER CHEST WALL PORT-A-CATH INTACT AND PATENT, FLUSHES EASILY WITH NO RESISTANCE; NS INFUSING AT 90 ML/HR. SEE NURSING FLOWSHEET FOR SKIN ISSUES, FOR WOUND CONSULT. BEDREST. NPO FOR NOW. FOR SWALLOW EVAL. BED IN LOWEST POSITION, CALL LIGHT WITHIN REACH, SIDE RAILS UP X2, RAILS PADDED. POC DISCUSSED, NEEDS FURTHER TEACHINGS. SAFETY MEASURES IN PLACE. BED LOW LOCKED, SR UPX 2, CALL LIGHT WITHIN REACH. WILL CONT TO MONITOR
[2021-11-30 08:00] VITALS: BP 129/75
[2021-11-30] MEDS: BLOOD SUGAR DIAGNOSTIC 1 EACH STRIP IN SCH ×4 (08:03→22:04)
--- NOTE | 2021-11-30 08:14 | NUR ---
WOUND CARE CONSULT: PT PRSENTS WITH SWELLING, DISCOLORATION, CRUSTING TO LOWER LEGS, RT THIGH OPEN AREAS, RASH TO BREASTFOLDS, BUTTOCKS AND ABD/GROIN FOLDS, PRESENT ON ADMISSION. DR AGUILAR CALLED FOR DPM CONSULT. RECOMMENDATIONS MADE FOR SKIN PROTECTION INCLUDING BARIMAX ETS AIR BED. MD IN AGREEMENT WITH PLAN OF CARE.
[2021-11-30 08:30] LABS: ALBUMIN 2.5 g/dL (3.4-5.0); BILIRUBIN,TOTAL 0.2 mg/dL (0.2-1.0); CALCIUM, SERUM 9.1 mg/dL (8.5-10.1); CREATININE 0.8 mg/dL (0.6-1.3); MAGNESIUM 2.2 mg/dL (1.8-2.4); PHOSPHORUS 4.8 mg/dL (2.5-4.9); POTASSIUM 3.8 mmol/L (3.5-5.1); TOTAL PROTEIN, SERUM 8.3 g/dL (6.4-8.2)
[2021-11-30] MEDS ORDERED: DIVA-78 PO (08:56)
[2021-11-30] MEDS ORDERED: LEVETIRACETAM (250 MG) 250 MG TABLET PO SCH (09:00)
--- NOTE | 2021-11-30 09:02 | NUR ---
RN NOTES PATIENT SEEN BY SPEECH THERAPIST. NO SIGNS OF ASPIRATION. CAN HAVE PUREED DIET.
[2021-11-30] MEDS: LEVETIRACETAM (250 MG) 250 MG TABLET PO SCH ×2 (09:25→20:44)
[2021-11-30] MEDS: POTASSIUM CHLORIDE 20 MEQ TAB.PRT.SR PO SCH (09:25)
[2021-11-30] MEDS: BENZTROPINE MESYLATE (1 MG) 1 MG TABLET PO SCH ×2 (09:25→17:15)
[2021-11-30] MEDS: FUROSEMIDE 40 MG TABLET PO SCH (09:25)
[2021-11-30] MEDS: FLUOXETINE HCL 20 MG CAPSULE PO SCH (09:25)
[2021-11-30] MEDS: clonazePAM 1 MG TABLET PO SCH ×3 (09:25→17:15)
[2021-11-30] MEDS: DOCUSATE SODIUM 100 MG CAPSULE PO SCH ×2 (09:25→17:15)
[2021-11-30] MEDS: ASCORBIC ACID 500 MG TABLET PO SCH ×2 (09:26→17:15)
[2021-11-30] MEDS: ZINC SULFATE 220 MG CAPSULE PO SCH (09:26)
[2021-11-30] MEDS: CLOTRIMAZOLE 1% 15 GM TUBE TP SCH ×2 (09:30→17:16)
--- NOTE | 2021-11-30 09:30 | NUR ---
RN NOTES DUE MEDS GIVEN
[2021-11-30 11:17] LABS: BAND % (MANUAL) 4 % (0.0-5.0); LYMPHOCYTES % (MANUAL) 14 % (16-48); NEUTROPHILS % (MANUAL) 72 (42-76)
[2021-11-30 11:18] LABS: BASOPHILS % (MANUAL) 0 % (0.0-2.0); EOSINOPHILS % (MANUAL) 0 % (0-4); MONOCYTES % (MANUAL) 10 % (0-11.0)
[2021-11-30 12:00] VITALS: BP 110/63
[2021-11-30] MEDS: VANCOMYCIN 1.5 GM in IV D5W 500 ML IV SCH (12:14)
[2021-11-30] MEDS: CEFEPIME 2 GM in IV D5W 100 ML IV SCH ×2 (12:18→20:44)
[2021-11-30 16:00] VITALS: BP 110/69
[2021-11-30] MEDS: PROSOURCE / PROSTAT (PYXIS) 30 ML UDC GT SCH (17:16)
[2021-11-30] MEDS: RIVAROXABAN 10 MG TABLET PO SCH (17:16)
--- NOTE | 2021-11-30 19:16 | NUR ---
TD RN CLOSING NOTE PT IN BED, AO X 2, SLIGHTLY LETHARGIC, GARBLED SPEECH, RESPONDS TO PAIN. ON 2L NC, O2 98%. NO S/S OF RESP DISTRESS, NO SOB OR COUGH, BREATHING EVEN AND UNLABORED. SR HR 89 ON MONITOR. DENIES CHEST PAIN OR DISCOMFORT, LEFT UPPER CHEST WALL PORT-A-CATH INTACT AND PATENT, FLUSHES EASILY WITH NO RESISTANCE; NS INFUSING AT 90 ML/HR. BEDREST. PUREED DIET. CRUSHED MEDS. BED IN LOWEST POSITION, CALL LIGHT WITHIN REACH, SIDE RAILS UP X2, RAILS PADDED. HOB UP. SAFETY MEASURES IN PLACE. BED LOW LOCKED, SR UPX 2, CALL LIGHT WITHIN REACH. ALL NEEDS MET AT THIS TIME. ENDORSED TO NEXT SHIFT FOR TREY.
[2021-11-30 20:00] VITALS: BP 99/65
--- NOTE | 2021-11-30 23:57 | NUR ---
TD RN OPENING NOTE PT IN BED, AWAKE, A&O X2, CONFUSED, RESTLESS AND FOUND SCREAMING. PT ON 2L NC WITH CURRENT O2SAT OF100% THROUGHOUT THE NIGHT; NO S/S OF RESP DISTRESS, NO SOB OR COUGH, NON-LABORED AND EQUAL BREATHING. ATTACHED TO EXTERNAL MONITOR SR WITH HR OF 99. LEFT UPPER CHEST WALL PORT-A-CATH INTACT AND PATENT, FLUSHES EASILY WITH NO RESISTANCE; NS INFUSING AT 90 ML/HR. BED IN LOWEST POSITION, CALL LIGHT WITHIN REACH, SIDE RAILS UP X2 AND PADDED. WILL CONTINUE TO MONITOR THROUGHOUT THE NIGHT.
[2021-12-01] VITALS: BP 130/70
[2021-12-01] MEDS: VANCOMYCIN 1.5 GM in IV D5W 500 ML IV SCH ×2 (00:51→12:00)
--- NOTE | 2021-12-01 01:00 | NUR ---
RN NOTE PT REPORTS OF A 10/10 STOMACH PAIN. PT ADMINISTERED TYLENOL 650 MG. WILL MONITOR FOR EFFECTIVENESS.
[2021-12-01 04:00] VITALS: BP 124/72
[2021-12-01] MEDS: CEFEPIME 2 GM in IV D5W 100 ML IV SCH ×3 (05:18→20:45)
[2021-12-01] MEDS: DIVALPROEX SODIUM 500 MG TABLET.DR PO SCH ×3 (05:18→20:46)
[2021-12-01 07:05] LABS: BASOPHILS % (AUTO) 0.4 % (0.0-2.0); EOSINOPHILS % (AUTO) 3.1 % (0.0-6.0); HEMATOCRIT 32 % (33-45); LYMPHOCYTES # (AUTO) 1.6 K/uL (0.8-4.8); LYMPHOCYTES % (AUTO) 30.7 % (20.0-44.0); MEAN CORPUSCULAR HGB CONC 31 g/dl (31.0-36.0); MEAN CORPUSCULAR VOLUME 89 fL (82-100); MONOCYTES # (AUTO) 0.5 K/uL (0.1-1.30); MONOCYTES % (AUTO) 9.7 % (2.0-12.0); NEUTROPHILS # (AUTO) 2.9 K/uL (1.8-8.9); NEUTROPHILS % (AUTO) 56.1 % (43.0-81.0); PLATELET COUNT (AUTO) 145 K/uL (150-450); WHITE BLOOD COUNT (AUTO) 5.1 K/uL (4.3-11.0)
--- NOTE | 2021-12-01 07:31 | NUR ---
RN NOTE PT WITNESSED TO HAVE SEIZURE THAT LASTED FOR 29 SECONDS. DURING SEIZURE, PT'S EYES OPENED WIDE WITH HEAD AND UPPER BODY SHAKING. NO INJURIES SUSTAINED; PT APPEARS LETHARGIC AFTER EPISODE. Addendum: 12/01/21 at 0735 by PRINCESS CARMEN COOK ALL VSS. BP 128/91, HR 83, O2SAT 99%, RR 12, TEMP 97.6 Addendum: 12/01/21 at 0817 by PRINCESS CARMEN COOK CARLOS MANUEL BROOKS INFORMED AND REPLIED TO "MONITOR" PT.
--- NOTE | 2021-12-01 07:32 | NUR ---
RN NOTES RECEIVING PT ON BED, RESPONDS TO PAINFUL STIMULI, LETHARGIC, ON 2L O2 N/C , NOT INTERACTING , MD NOTIFED PER EXPLORATION ENGINEER REPORT , VSS STABLE, NS AT 90 CC/HR RUNNING SR UP X3, CALL LIGHT WITHIN EASY REACH, BED LOCKED AND IN LOWEST POSITION, CONTINUE TO MONITOR .
[2021-12-01 08:00] VITALS: BP 129/81
[2021-12-01 08:08] LABS: CALCIUM, SERUM 8.7 mg/dL (8.5-10.1); CREATININE 0.9 mg/dL (0.6-1.3); MAGNESIUM 2.1 mg/dL (1.8-2.4); PHOSPHORUS 3.7 mg/dL (2.5-4.9); POTASSIUM 3.5 mmol/L (3.5-5.1)
--- NOTE | 2021-12-01 08:13 | NUR ---
WIRE STITCHER MACHINE CLOSING NOTE PT REMAINS IN BED, STILL LETHARGIC AFTER SEIZURE EPISODE. RESPONDS TO PAIN WITH PRESSURE APPLIED ON NAIL BED BY FACIAL GRIMACING AND WITHDRAWING TO PAIN. CONTINUES TO BE ON 2L NC WITH O2SAT IN THE 90S; NO S/S OF RESP DISTRESS, NO SOB OR COUGH, NON-LABORED AND EQUAL BREATHING. ATTACHED TO EXTERNAL MONITOR, SR WITH HR OF 89. LEFT CHEST WALL PORT-A-CATH INTACT AND PATENT, FLUSHES EASILY WITH NO RESISTANCE, NS INFUSING AT 90 ML/HR. ALL DUE MEDS ADMINISTERED DURING THE NIGHT. BED IN LOWEST POSITION, CALL LIGHT WITHIN REACH, SIDE RAILS UP X3. WILL ENDORSE TO DAYSHIFT NURSE TO CONTINUE CARE.
[2021-12-01] MEDS: ZINC SULFATE 220 MG CAPSULE PO SCH (09:11)
[2021-12-01] MEDS: POTASSIUM CHLORIDE 20 MEQ TAB.PRT.SR PO SCH (09:11)
[2021-12-01] MEDS: BENZTROPINE MESYLATE (1 MG) 1 MG TABLET PO SCH ×2 (09:11→16:20)
[2021-12-01] MEDS: BLOOD SUGAR DIAGNOSTIC 1 EACH STRIP IN SCH ×4 (09:11→22:40)
[2021-12-01] MEDS: clonazePAM 1 MG TABLET PO SCH ×3 (09:11→16:20)
[2021-12-01] MEDS: FLUOXETINE HCL 20 MG CAPSULE PO SCH (09:11)
[2021-12-01] MEDS: DOCUSATE SODIUM 100 MG CAPSULE PO SCH ×2 (09:11→16:20)
[2021-12-01] MEDS: LEVETIRACETAM (250 MG) 250 MG TABLET PO SCH ×2 (09:14→20:46)
[2021-12-01] MEDS: CLOTRIMAZOLE 1% 15 GM TUBE TP SCH ×2 (09:15→16:21)
[2021-12-01] MEDS: ASCORBIC ACID 500 MG TABLET PO SCH ×2 (09:15→16:20)
[2021-12-01] MEDS: FUROSEMIDE 40 MG TABLET PO SCH (09:16)
[2021-12-01] MEDS: PROSOURCE / PROSTAT (PYXIS) 30 ML UDC GT SCH ×2 (09:16→16:26)
[2021-12-01] MEDS: IV NS 0.9% 1,000 ML IV PRN ×2 (10:49→22:30)
[2021-12-01 12:00] VITALS: BP 138/76
--- NOTE | 2021-12-01 13:00 | NUR ---
RN NOTES SARAH CANO AND DR BROOKS , NOTIFIED REGARDING POSITIVE BLOOD CULTURE ,
[2021-12-01] MEDS ORDERED: VITAMINS A AND D 56.7 GM TUBE TP PRN (13:30)
[2021-12-01 16:00] VITALS: BP 140/68
[2021-12-01] MEDS: RIVAROXABAN 10 MG TABLET PO SCH (17:09)
--- NOTE | 2021-12-01 18:34 | NUR ---
RN NOTES PT IS AWAKE , AND ALERT, FOLLOWS COMMAND , REPORT GIVEN TO BRI COOK FOR CONTINUITY OF CARE.
--- NOTE | 2021-12-01 18:35 | NUR ---
RN NOTES NO SIGNIFICANT CHANGES NOTED ON THIS SHIFT, PT ALERT , EATING DINNER , SR UP x3, CALL LIGHT WITHIN EASY REACH, BED LOCKED AND IN LOWEST POSITION, WILL ENDORSE TO LAY OUT WORKER FOR CONTINUITY OF CARE
--- NOTE | 2021-12-01 19:30 | NUR ---
TD RN OPENING NOTE PT IN BED, AWAKE, A/O X2, ABLE TO MAKE NEEDS KNOWN, CONFUSED AT TIMES. CURRENTLY ON 2L NC TOLERATING WELL WITH O2 SAT AT 100%. NO S/S OF RESP DISTRESS NOTED AT THIS TIME, NO SOB OR COUGH, NON-LABORED AND EQUAL BREATHING. ATTACHED TO EXTERNAL MONITOR SR WITH HR OF >90. LEFT UPPER CHEST WALL PORT-A-CATH INTACT AND PATENT, FLUSHES EASILY WITH NO RESISTANCE; NS INFUSING AT 90 ML/HR. ALL SAFETY MEASURES IN PLACE: BED IN LOWEST POSITION, CALL LIGHT WITHIN REACH, SIDE RAILS UP X2 AND PADDED. WILL CONTINUE TO MONITOR THROUGHOUT THE NIGHT.
[2021-12-01 20:00] VITALS: BP 112/64
[2021-12-01] MEDS ORDERED: LORAZEPAM INJ 2 MG/ML VIAL IV ONE (21:00)
[2021-12-01] MEDS ORDERED: LORAZEPAM INJ 2 MG/ML VIAL IV PRN (21:00)
[2021-12-01] MEDS ORDERED: LEVETIRACETAM (500MG) 1,000 MG in IV NS 0.9% 100 ML IV ONE (21:00)
--- NOTE | 2021-12-01 21:12 | NUR ---
RN NOTE PT STARTED HAVING SEIZURE AGAIN. SR UP X3, MAINTAINED PT'S SAFETY. ADMINISTERED ATIVAN 2MG IV X 1 ORDERED. WILL CONTINUE TO MONITOR.
[2021-12-01] MEDS ORDERED: LEVETIRACETAM (500MG) 500 MG/5 ML VIAL IV ONE ×2 (21:32→22:53)
[2021-12-01] MEDS: INSULIN REGULAR, HUMAN 100 UNIT/ML 3 ML VIAL SQ PRN (22:41)
[2021-12-02] VITALS: BP 129/71
[2021-12-02 04:00] VITALS: BP 131/71
[2021-12-02] MEDS: DIVALPROEX SODIUM 500 MG TABLET.DR PO SCH ×3 (04:39→21:36)
[2021-12-02] MEDS: CEFEPIME 2 GM in IV D5W 100 ML IV SCH ×3 (04:39→21:34)
--- NOTE | 2021-12-02 06:18 | NUR ---
RN CLOSING NOTE PT IN BED, RESTING. ON NC AT 6L, TOLERATING WELL. O2 SAT AT 99%. TELE MONITOR SHOWS SR, HR >70. NOTED TO HAVE MILD SEIZURES WHILE BEING CLEANED. MAINTAINED PT'S SAFETY. VS WNL. ALL DUE MEDS GIVEN. NEEDS ATTENDED TO. TURNED AND REPOSITIONED. WILL ENDORSE TO AM SHIFT NURSE FOR TREY.
[2021-12-02] MEDS: BLOOD SUGAR DIAGNOSTIC 1 EACH STRIP IN SCH ×4 (07:42→22:11)
--- NOTE | 2021-12-02 07:43 | NUR ---
RN NOTE SUGAR 64. BREAKFAST GIVEN, PT ACTIVELY EATING AT THIS TIME. NO SIGNS OF SEIZURE, PT AWAKE A&OX2.
--- NOTE | 2021-12-02 07:52 | NUR ---
RN NOTE BLOOD CULTURE POSITIVE FOR GRAM POSITIVE COCCI IN CLUSTER, AUBREE BROOKS NOTIFIED.
[2021-12-02 08:00] VITALS: BP 133/82
[2021-12-02 08:32] LABS: CALCIUM, SERUM 8.8 mg/dL (8.5-10.1); CREATININE 0.7 mg/dL (0.6-1.3); MAGNESIUM 2.3 mg/dL (1.8-2.4); PHOSPHORUS 4.5 mg/dL (2.5-4.9)
[2021-12-02] MEDS: DOCUSATE SODIUM 100 MG CAPSULE PO SCH ×2 (08:42→17:06)
[2021-12-02] MEDS: ASCORBIC ACID 500 MG TABLET PO SCH ×2 (08:42→17:06)
[2021-12-02] MEDS: FUROSEMIDE 40 MG TABLET PO SCH (08:42)
[2021-12-02] MEDS: POTASSIUM CHLORIDE 20 MEQ TAB.PRT.SR PO SCH (08:42)
[2021-12-02] MEDS: BENZTROPINE MESYLATE (1 MG) 1 MG TABLET PO SCH ×2 (08:42→17:06)
[2021-12-02] MEDS: CLOTRIMAZOLE 1% 15 GM TUBE TP SCH ×2 (08:42→17:03)
[2021-12-02] MEDS: clonazePAM 1 MG TABLET PO SCH ×3 (08:42→17:06)
[2021-12-02] MEDS: ZINC SULFATE 220 MG CAPSULE PO SCH (08:42)
[2021-12-02] MEDS: FLUOXETINE HCL 20 MG CAPSULE PO SCH (08:47)
[2021-12-02] MEDS: PROSOURCE / PROSTAT (PYXIS) 30 ML UDC GT SCH ×2 (08:47→17:06)
--- NOTE | 2021-12-02 09:00 | NUR ---
RN NOTE AWAITING FOR VANCO TROUGH LEVEL RESULT TO ADMINISTER VANCO IVPB.
[2021-12-02] MEDS: VANCOMYCIN 1.25 GM in IV D5W 250 ML IV SCH (09:30)
[2021-12-02] MEDS: IV NS 0.9% 1,000 ML IV PRN ×2 (09:49→21:33)
[2021-12-02] MEDS: LEVETIRACETAM (250 MG) 250 MG TABLET PO SCH ×2 (10:53→21:36)
[2021-12-02 12:00] VITALS: BP 134/84
--- NOTE | 2021-12-02 15:00 | NUR ---
RN NOTE PT STABLE ON RA SAT 100%.
[2021-12-02 16:00] VITALS: BP 130/88
[2021-12-02 17:04] LABS: BASOPHILS % (AUTO) 0.3 % (0.0-2.0); EOSINOPHILS % (AUTO) 3.6 % (0.0-6.0); HEMATOCRIT 32 % (33-45); HEMOGLOBIN 10.3 g/dL (11.5-14.8); LYMPHOCYTES # (AUTO) 1.4 K/uL (0.8-4.8); LYMPHOCYTES % (AUTO) 34.1 % (20.0-44.0); MEAN CORPUSCULAR HGB CONC 32 g/dl (31.0-36.0); MEAN CORPUSCULAR VOLUME 87 fL (82-100); MONOCYTES # (AUTO) 0.5 K/uL (0.1-1.30); NEUTROPHILS # (AUTO) 2.1 K/uL (1.8-8.9); PLATELET COUNT (AUTO) 190 K/uL (150-450); RED BLOOD CELL COUNT(AUTO) 3.67 MIL/uL (4.0-5.2); WHITE BLOOD COUNT (AUTO) 4.2 K/uL (4.3-11.0)
[2021-12-02] MEDS: RIVAROXABAN 10 MG TABLET PO SCH (17:13)
--- NOTE | 2021-12-02 19:10 | NUR ---
RN NOTE PATIENT IN BED, AO X 2, IN NO ACUTE DISTRESS, SATURATION AT 100% ON ROOM AIR, SR ON THE MONITOR, HR IS 75. VANESSA CATH AT L CHEST IN PLACE, WITH NS INFUSING AT 90 ML/HR. EXTERNAL URINARY CATHETER IN PLACE, NOTED MODERATE AMOUNT OF CLEAR, YELLOW OUTPUT. SAFETY MEASURES IMPLEMENTED. PATIENT BED ALARM IS ON. HEAD OF BED ELEVATED. BED IS LOCKED, IN LOWEST POSITION AND SIDE RAILS UP. CALL LIGHT WITHIN REACH OF THE PATIENT. WILL CONTINUE TO MONITOR AND REASSESS FOR ANY CHANGES.
[2021-12-02 20:00] VITALS: BP 130/83
[2021-12-02] MEDS: ZOLPIDEM TARTRATE 5 MG TABLET PO PRN (21:54)
[2021-12-02] MEDS: LORAZEPAM INJ 2 MG/ML VIAL IV PRN (23:38)
[2021-12-03] VITALS: BP 140/80
[2021-12-03 04:00] VITALS: BP 145/73
[2021-12-03] MEDS: CEFEPIME 2 GM in IV D5W 100 ML IV SCH ×3 (05:09→21:54)
[2021-12-03] MEDS: DIVALPROEX SODIUM 500 MG TABLET.DR PO SCH ×3 (05:10→21:36)
[2021-12-03] MEDS: BLOOD SUGAR DIAGNOSTIC 1 EACH STRIP IN SCH ×4 (07:24→23:06)
[2021-12-03] MEDS: VANCOMYCIN 1.25 GM in IV D5W 250 ML IV SCH (07:40)
[2021-12-03 08:00] VITALS: BP 148/87
[2021-12-03] MEDS: BENZTROPINE MESYLATE (1 MG) 1 MG TABLET PO SCH ×3 (08:39→17:28)
[2021-12-03] MEDS: LEVETIRACETAM (250 MG) 250 MG TABLET PO SCH ×2 (08:39→21:36)
[2021-12-03] MEDS: FUROSEMIDE 40 MG TABLET PO SCH (08:40)
[2021-12-03] MEDS: ASCORBIC ACID 500 MG TABLET PO SCH ×3 (08:40→17:28)
[2021-12-03] MEDS: DOCUSATE SODIUM 100 MG CAPSULE PO SCH ×3 (08:40→17:28)
[2021-12-03] MEDS: ZINC SULFATE 220 MG CAPSULE PO SCH (08:40)
[2021-12-03] MEDS: CLOTRIMAZOLE 1% 15 GM TUBE TP SCH ×2 (08:40→16:02)
[2021-12-03] MEDS: clonazePAM 1 MG TABLET PO SCH ×4 (08:40→17:28)
[2021-12-03] MEDS: PROSOURCE / PROSTAT (PYXIS) 30 ML UDC GT SCH ×3 (08:40→17:28)
[2021-12-03] MEDS: FLUOXETINE HCL 20 MG CAPSULE PO SCH (08:40)
[2021-12-03] MEDS: IV NS 0.9% 1,000 ML IV PRN ×2 (09:13→18:10)
[2021-12-03 12:00] VITALS: BP 148/86
[2021-12-03 13:23] LABS: CALCIUM, SERUM 8.7 mg/dL (8.5-10.1); CREATININE 0.7 mg/dL (0.6-1.3); MAGNESIUM 2.1 mg/dL (1.8-2.4); PHOSPHORUS 3.5 mg/dL (2.5-4.9); POTASSIUM 4.2 mmol/L (3.5-5.1)
[2021-12-03 15:27] LABS: BASOPHILS % (AUTO) 0.2 % (0.0-2.0); EOSINOPHILS % (AUTO) 3.6 % (0.0-6.0); HEMATOCRIT 34 % (33-45); HEMOGLOBIN 10.8 g/dL (11.5-14.8); LYMPHOCYTES # (AUTO) 1.3 K/uL (0.8-4.8); LYMPHOCYTES % (AUTO) 28.1 % (20.0-44.0); MEAN CORPUSCULAR HGB CONC 32 g/dl (31.0-36.0); MEAN CORPUSCULAR VOLUME 87 fL (82-100); MONOCYTES # (AUTO) 0.5 K/uL (0.1-1.30); MONOCYTES % (AUTO) 9.8 % (2.0-12.0); NEUTROPHILS # (AUTO) 2.8 K/uL (1.8-8.9); NEUTROPHILS % (AUTO) 58.3 % (43.0-81.0); PLATELET COUNT (AUTO) 150 K/uL (150-450); RED BLOOD CELL COUNT(AUTO) 3.92 MIL/uL (4.0-5.2); WHITE BLOOD COUNT (AUTO) 4.7 K/uL (4.3-11.0)
[2021-12-03] MEDS: LORAZEPAM INJ 2 MG/ML VIAL IV PRN ×2 (15:36→20:01)
--- NOTE | 2021-12-03 15:37 | NUR ---
RN NOTE PT NOTED TO HAVE TONIC-CLONIC SEIZURE, RN AT BEDSIDE DURING ONSET, SEIZURE LASTING APPROXIMATELY 20 SECONDS, ATIVAN 2MG IVP GIVEN. PT PLACED ON 10L O2 SIMPLE MASK. HR 85, BP 124/78, OXYGEN 100%.
[2021-12-03 16:00] VITALS: BP 124/77
--- NOTE | 2021-12-03 16:02 | NUR ---
RN NOTE VSS, PT UNABLE TO TAKE PO MEDS STATUS POST SEIZURE AND ATIVAN IVP.
--- NOTE | 2021-12-03 17:23 | NUR ---
RN NOTE PT ABLE TO SWALLOW PO MEDS NOW
--- NOTE | 2021-12-03 17:23 | NUR ---
RN NOTE PT AWAKE, SUGAR 60, APPLE JUICE AND VANILLA PUDDING GIVEN.
[2021-12-03] MEDS: RIVAROXABAN 10 MG TABLET PO SCH (17:29)
--- NOTE | 2021-12-03 17:40 | NUR ---
RN NOTE PT STABLE ON RA
--- NOTE | 2021-12-03 19:10 | NUR ---
RN OPENING NOTES RECEIVED PATIENT ON BED, AWAKE, VERBALLY RESPONSIVE. SCREAMING AND ANXIOUS. ON ROOM AIR, SATING AT 96%. RESPIRATORY EVEN AND UNLABORED, NO SOB NOTED. AFEBRILE, NO S/S OF DISTRESS NOTED. WITH LEFT CHEST PORT-A-CATH, PATENT, INTACT, FLUSHED WITH NS. NO S/S OF INFILTRATION NOTED. WITH IVF NS @ 90 ML/HR. REPOSITION PATIENT EVERY 2 HRS. SEIZURE PRECAUTION PROVIDED. ALL SAFETY PRECAUTION PROVIDED, BED IN LOWEST POSITION, LOCKED. BED ALARM ARMED. CALL LIGHT WITH IN REACH. CONTINUE TO MONITOR.
--- NOTE | 2021-12-03 19:55 | NUR ---
RN NOTES PATIENT NOTED WITH TONIC-CLONIC SEIZURE, RN AT BEDSIDE DURING ONSET, SEIZURE LASTING APPROXIMATELY 50 SECONDS, ATIVAN 2MG IVP GIVEN. PT PLACED ON 10L O2 SIMPLE MASK. HR 79, BP 141/74, O2SAT 97%. EDITOR BOOK GEOVANI OLVERA MADE AWARE.
[2021-12-03 20:00] VITALS: BP 141/74
--- NOTE | 2021-12-03 20:35 | NUR ---
RN NOTES OBTAINED CONSENT FROM BROTHCA PALMER, REGARDING PORT-A-CATH REMOVAL, VERIFIED WITH ANOTHER RN.
[2021-12-03] MEDS: ZOLPIDEM TARTRATE 5 MG TABLET PO PRN (21:36)
--- NOTE | 2021-12-03 23:00 | NUR ---
RN NOTES BLOOD SUGAR 67 mg/dL, NO INSULIN COVERAGE PER SLIDING SCALE, NO S/S OF HYPOGLYCEMIA NOTED, SNACK OFFERED AND ABLE TO CONSUMED 1 SERVING OF PUDDING. CONTINUE TO MONITOR.
[2021-12-03] MEDS: INSULIN REGULAR, HUMAN 100 UNIT/ML 3 ML VIAL SQ PRN (23:08)
[2021-12-04] VITALS: BP 138/95
[2021-12-04 04:00] VITALS: BP 142/88
[2021-12-04] MEDS: CEFEPIME 2 GM in IV D5W 100 ML IV SCH ×3 (06:13→22:14)
[2021-12-04] MEDS: DIVALPROEX SODIUM 500 MG TABLET.DR PO SCH ×3 (06:13→22:13)
[2021-12-04] MEDS: IV NS 0.9% 1,000 ML IV PRN (06:20)
[2021-12-04] MEDS ORDERED: FENTANYL PF 100MCG/2ML AMPUL ONE (06:53)
[2021-12-04] MEDS ORDERED: CLINDAMYCIN 900 MG/6 ML VIAL ONE (06:53)
[2021-12-04] MEDS ORDERED: FAMOTIDINE/PF INJ 20 MG/2 ML VIAL IV ONE (06:54)
--- NOTE | 2021-12-04 07:30 | NUR ---
RN OPENING NOTE RECEIVED PT IN BED, AWAKE, ALERT AND ORIENTED X1-2.PT ON ROOM AIR SATURATING AT 100%. NO SIGNS OF PAIN OR DISCOMOFRT. PT IS ON SEIZURE PRECAUTION. PT LEFT CHEST PORT-A-CATH PATENT.PT CURRENTLY NPO WAITING FOR SURGERY FOR PORT AT CATH REMOVAL.NO SIGNS OF PAIN OR DISCOMOFRT AT THIS TIME. ALL SAFETY PRECAUTION PROVIDED, BED IN LOWEST POSITION, LOCKED. BED ALARM ON.. CALL LIGHT WITH IN REACH. SIDE RAILS UP X2.
[2021-12-04] MEDS ORDERED: LIDOCAINE HCL/PF 1% 30 ML SDV ONE (07:41)
[2021-12-04] MEDS ORDERED: ANESTHESIA TRAY IN PYXIS 1 EA TRAY MC ONE (07:46)
[2021-12-04] MEDS: BLOOD SUGAR DIAGNOSTIC 1 EACH STRIP IN SCH ×4 (07:50→22:18)
[2021-12-04 07:52] LABS: CALCIUM, SERUM 8.9 mg/dL (8.5-10.1); CREATININE 0.7 mg/dL (0.6-1.3); POTASSIUM 4.5 mmol/L (3.5-5.1)
[2021-12-04 08:00] VITALS: BP 135/64
[2021-12-04] MEDS: BENZTROPINE MESYLATE (1 MG) 1 MG TABLET PO SCH ×2 (09:00→17:55)
[2021-12-04] MEDS: ASCORBIC ACID 500 MG TABLET PO SCH ×2 (09:00→17:57)
[2021-12-04] MEDS: LEVETIRACETAM (250 MG) 250 MG TABLET PO SCH ×2 (09:00→22:18)
[2021-12-04] MEDS: ZINC SULFATE 220 MG CAPSULE PO SCH (09:00)
[2021-12-04] MEDS: clonazePAM 1 MG TABLET PO SCH ×3 (09:00→17:55)
[2021-12-04] MEDS: FLUOXETINE HCL 20 MG CAPSULE PO SCH (09:00)
[2021-12-04] MEDS: PROSOURCE / PROSTAT (PYXIS) 30 ML UDC GT SCH ×2 (09:00→17:55)
[2021-12-04] MEDS: DOCUSATE SODIUM 100 MG CAPSULE PO SCH ×2 (09:00→17:00)
[2021-12-04] MEDS ORDERED: LIDOCAINE HCL/MPF 1% 30 ML VIAL IJ ONE (09:15)
--- NOTE | 2021-12-04 10:00 | NUR ---
RN NOTE PATIENT CAME BACK FROM SURGERY. STABLE VITAL SIGNS. PORT A CATH WAS REMOVED. PATIENT HAS RIGHT FEMORAL ACCESS. MIDLINE WAS PLACED ON LEFT ARM.
[2021-12-04] MEDS: CLOTRIMAZOLE 1% 15 GM TUBE TP SCH ×2 (11:53→17:57)
[2021-12-04] MEDS: VANCOMYCIN 1.25 GM in IV D5W 250 ML IV SCH (11:53)
[2021-12-04] MEDS: FUROSEMIDE 40 MG TABLET PO SCH (11:53)
[2021-12-04 12:00] VITALS: BP 105/53
--- NOTE | 2021-12-04 12:00 | NUR ---
RN NOTE DR. BROOKS ORDERED R FEMORAL LINE TO BE REMOVED. SPOKE WITH DR. BROOKS TO RESUME ALL ORDERS DIET AND MEDICATIONS.
[2021-12-04 16:00] VITALS: BP 94/34
[2021-12-04] MEDS: RIVAROXABAN 10 MG TABLET PO SCH (17:58)
--- NOTE | 2021-12-04 19:45 | NUR ---
DRONE PILOT OPENING NOTE RECEIVED PT IN BED AWAKE, ALERT AND ORIENTED X1-2. PT ON ROOM AIR SATURATING AT 98%. NO SIGNS OF PAIN OR DISCOMFORT AT THIS TIME. PT IS ON SEIZURE PRECAUTION. NOTED PT WITH LEFT CHEST SURGICAL DRESSING C/D/I. ON TELE MONITORING CURRENTLY READING SR. WITH R FEMORAL LINE AND [place] ML INTACT AND PATENT RUNNING NS AT 90 ML/HR. ALL SAFETY PRECAUTION PROVIDED, BED IN LOWEST POSITION, LOCKED. BED ALARM ON. CALL LIGHT WITH IN REACH. SIDE RAILS UP X2. WILL CONTINUE TO MONITOR THROUGHOUT THE SHIFT.
--- NOTE | 2021-12-04 19:52 | NUR ---
RN NOTE PT IN BED, AWAKE, ALERT AND ORIENTED X1-2. SEIZURE PRECAUTIONS PROVIDED. PT OXYGEN SATURATION 100% ON ROOM AIR. NO SIGNS OF PAIN OR DISCOMFORT. KEPT CLEAN AND DRY. L UA MIDLINE INTACT, PATENT, FLUSHING WELL. PT HAS R FEMORAL LINE. ENDORSED TO PLANT CONTROLS SPECIALIST RN TO DISCONTINUE FEMORAL LINE. ALL SAFETY MEASURES IN PLACE. CALL LIGHT WITHIN REACH. BED LOCKED AT LOWEST POSITION. SIDE RAILS UP X2.BED ALARM ON
[2021-12-04 20:00] VITALS: BP 99/67
[2021-12-04] MEDS: DEXTROSE 50%-WATER 50 ML DISP.SYRIN IV PRN (22:49)
[2021-12-05] VITALS: BP 115/65
[2021-12-05 04:00] VITALS: BP 125/74
[2021-12-05] MEDS: CEFEPIME 2 GM in IV D5W 100 ML IV SCH (04:47)
[2021-12-05] MEDS: DIVALPROEX SODIUM 500 MG TABLET.DR PO SCH ×3 (04:47→20:25)
[2021-12-05] MEDS: IV NS 0.9% 1,000 ML IV PRN ×2 (05:01→18:50)
--- NOTE | 2021-12-05 06:41 | NUR ---
LUMP ROOM SUPERVISOR CLOSING NOTE PT REMAINS IN BED AWAKE, ALERT AND ORIENTED X1-2. PT ON ROOM AIR SATURATING AT 98%. NO SIGNS OF PAIN OR DISCOMFORT AT THIS TIME. PT IS ON SEIZURE PRECAUTION. NOTED PT WITH LEFT CHEST SURGICAL DRESSING C/D/I. ON TELE MONITORING CURRENTLY READING SR. WITH R FEMORAL LINE AND [place] ML INTACT AND PATENT RUNNING NS AT 90 ML/HR. ALL SAFETY PRECAUTION PROVIDED, ALL DUE MEDS GIVEN, KEPT DRY AND CLEAN, BED IN LOWEST POSITION, LOCKED. BED ALARM ON. CALL LIGHT WITH IN REACH. SIDE RAILS UP X2. WILL ENDORSE TO AM SHIFT NURSE FOR CONTINUITY OF CARE.
--- NOTE | 2021-12-05 07:20 | NUR ---
RN OPENING NOTE RECEIVED PT IN BED, AWAKE, ALERT AND ORIENTED X1-2.PT ON ROOM AIR SATURATING AT 98%. PT SINUS RHYTHM ON TELE MONITOR. NO SIGNS OF PAIN OR DISCOMFORT. PT IS ON SEIZURE PRECAUTIONS.PT HAS LEFT MIDLINE INTACT, PATENT AND FLUSHING WELL. PT HAS R FEMORAL LINE. ALL SAFETY PRECAUTION PROVIDED, BED IN LOWEST POSITION, LOCKED. BED ALARM ON.. CALL LIGHT WITH IN REACH. SIDE RAILS UP X2.
[2021-12-05] MEDS: BLOOD SUGAR DIAGNOSTIC 1 EACH STRIP IN SCH ×4 (07:45→22:26)
[2021-12-05 08:00] VITALS: BP 98/59
[2021-12-05 08:00] LABS: CREATININE 0.8 mg/dL (0.6-1.3); MAGNESIUM 2.3 mg/dL (1.8-2.4); PHOSPHORUS 3.9 mg/dL (2.5-4.9); POTASSIUM 4.4 mmol/L (3.5-5.1)
[2021-12-05] MEDS: DOCUSATE SODIUM 100 MG CAPSULE PO SCH ×2 (08:42→16:26)
[2021-12-05] MEDS: PROSOURCE / PROSTAT (PYXIS) 30 ML UDC GT SCH ×2 (08:42→17:36)
[2021-12-05] MEDS: VANCOMYCIN 1.25 GM in IV D5W 250 ML IV SCH (08:42)
[2021-12-05] MEDS: ASCORBIC ACID 500 MG TABLET PO SCH ×2 (08:43→16:26)
[2021-12-05] MEDS: clonazePAM 1 MG TABLET PO SCH ×3 (08:43→16:26)
[2021-12-05] MEDS: ZINC SULFATE 220 MG CAPSULE PO SCH (08:43)
[2021-12-05] MEDS: BENZTROPINE MESYLATE (1 MG) 1 MG TABLET PO SCH ×2 (08:43→16:26)
[2021-12-05] MEDS: FUROSEMIDE 40 MG TABLET PO SCH (08:43)
[2021-12-05] MEDS: FLUOXETINE HCL 20 MG CAPSULE PO SCH (08:43)
[2021-12-05] MEDS: LEVETIRACETAM (250 MG) 250 MG TABLET PO SCH ×2 (08:48→20:25)
[2021-12-05] MEDS: CLOTRIMAZOLE 1% 15 GM TUBE TP SCH ×2 (09:13→16:28)
[2021-12-05 09:37] LABS: BASOPHILS % (AUTO) 0.4 % (0.0-2.0); HEMATOCRIT 36 % (33-45); HEMOGLOBIN 11.1 g/dL (11.5-14.8); LYMPHOCYTES # (AUTO) 0.8 K/uL (0.8-4.8); LYMPHOCYTES % (AUTO) 10.3 % (20.0-44.0); MEAN CORPUSCULAR HGB CONC 31 g/dl (31.0-36.0); MEAN CORPUSCULAR VOLUME 90 fL (82-100); MONOCYTES # (AUTO) 0.7 K/uL (0.1-1.30); NEUTROPHILS # (AUTO) 6.4 K/uL (1.8-8.9); NEUTROPHILS % (AUTO) 78.3 % (43.0-81.0); PLATELET COUNT (AUTO) 136 K/uL (150-450); RED BLOOD CELL COUNT(AUTO) 3.98 MIL/uL (4.0-5.2); WHITE BLOOD COUNT (AUTO) 8.2 K/uL (4.3-11.0)
--- NOTE | 2021-12-05 10:00 | NUR ---
RN NOTE REMOVED R FEMORAL LINE PER MD ORDER
[2021-12-05 12:00] VITALS: BP 122/63
[2021-12-05] MEDS: LORAZEPAM INJ 2 MG/ML VIAL IV PRN ×2 (15:27→21:16)
--- NOTE | 2021-12-05 15:37 | NUR ---
pt had seizure. ativan given
--- NOTE | 2021-12-05 15:40 | NUR ---
RN NOTE NOTIFIED DR. SHIRLEY IF RESTRAINTS CAN BE ORDERED DUE TO PT TRYING TO GET OUT OF BED, SCREAMING AND AGITATION. NOTIFIED DR. SHIRLEY IF ATIVAN CAN BE ORDERED FOR ANXIETY, AGITATION. AWARE.
[2021-12-05 16:00] VITALS: BP 94/65
--- NOTE | 2021-12-05 16:30 | NUR ---
RN NOTE NOTIFIED IF ATIVAN CAN BE ORDERED FOR ANXIETY. PT ALREADY HAS ORDER FOR LORAZEPAM PRN FOR SEIZURES. ACKNOWLEDGED AND AGREED.
[2021-12-05] MEDS: RIVAROXABAN 10 MG TABLET PO SCH (17:37)
--- NOTE | 2021-12-05 19:30 | NUR ---
RN OPENING NOTE RECEIVED PT IN BED, AWAKE, ALERT AND ORIENTED X1-2.PT ON ROOM AIR SATURATING AT 98%. PT SINUS RHYTHM ON TELE MONITOR. NO SIGNS OF PAIN OR DISCOMFORT. PT IS ON SEIZURE PRECAUTIONS. PT HAS [place] MIDLINE INTACT, PATENT AND FLUSHING WELL. ALL SAFETY PRECAUTIONS IN PLACE: BED IN LOWEST POSITION, LOCKED. CALL LIGHT WITH IN REACH. SIDE RAILS UP X3. PADDED RAILS FOR SAFETY. WILL CONTINUE TO MONITOR.
--- NOTE | 2021-12-05 19:40 | NUR ---
RN NOTE NOTIFIED DR. SHIRLEY IF TUBE FEEDINGS CAN BE RESUMED AND GT MEDICATIONS RESUMED DUE TO RESULT OF SMALL BOWEL FOLLOW THROUGH XRAY SHOWED NO BOWEL OBSTRUCTION. DR ACKNOWLEDGED ORDERS AND AWARE. Addendum: 12/05/21 at 2004 by BRI CORDOBA RN CHARTED ON WRONG PT
[2021-12-05 20:00] VITALS: BP 132/68
--- NOTE | 2021-12-05 20:10 | NUR ---
RN CLOSING NOTE PT IN BED, AWAKE, ALERT AND ORIENTED X1-2. SEIZURE PRECAUTIONS IN PLACE PROVIDED. PADDED SIDE RAILS. PT OXYGEN SATURATION 100% ON ROOM AIR. NO SIGNS OF PAIN OR DISCOMFORT. KEPT CLEAN AND DRY. PT HAS TENDENCY TO SCREAM THROUGHOUT SHIFT. PROVIDED SNACKS. L UA MIDLINE INTACT, PATENT, FLUSHING WELL.RUNNING NORMAL SALINE. REINFORCED TO PT ABOUT THE PADDED SIDE RAILS AND STAYING IN BED TO PREVENT FALL AND SAFETY PRECAUTIONS IN PLACE. ALL SAFETY MEASURES IN PLACE. CALL LIGHT WITHIN REACH. BED LOCKED AT LOWEST POSITION. SIDE RAILS UP X2.BED ALARM ON.
--- NOTE | 2021-12-05 21:30 | NUR ---
RN NOTE PT NOTED TO HAVE MILD SEIZURE THAT LASTED FOR 2 MINUTES. MAINTAINED PT'S SAFETY. ADMINISTERED ATIVAN PRN ORDERED.
[2021-12-05] MEDS: INSULIN REGULAR, HUMAN 100 UNIT/ML 3 ML VIAL SQ PRN (22:27)
--- NOTE | 2021-12-05 22:30 | NUR ---
RN NOTE PT NOTED TO BE AGITATED IN BED, ALWAYS SHOUTING AND WANTED TO GET OUT OF BED. ,M
[2021-12-06] VITALS: BP 156/77
[2021-12-06] MEDS: LORAZEPAM INJ 2 MG/ML VIAL IV PRN ×2 (03:48→10:56)
--- NOTE | 2021-12-06 03:50 | NUR ---
RN NOTE PT TRIES TO GET OUT OF BED WHILE GIVING HER BED BATH. TOLD PT SHE IS NOT STRONG ENOUGH TO GET OUT OF THE BED. STILL INSISTS ON GETTING UP. INFORMED INFERTILITY MEDICAL ASSISTANT KELLIE TO ORDER RESTRAINTS ON BILATERAL HANDS FOR PT'S SAFETY. WILL CARRY OUT ORDER ACCORDINGLY. MEANWHILE, WILL MAINTAIN PT'S SAFETY AT ALL TIMES.
[2021-12-06 04:00] VITALS: BP 119/67
--- NOTE | 2021-12-06 04:00 | NUR ---
RN NOTE MILD SEIZURE NOTED AGAIN. GAVE ATIVAN PRN ORDERED.
[2021-12-06] MEDS: DIVALPROEX SODIUM 500 MG TABLET.DR PO SCH ×3 (04:04→20:07)
--- NOTE | 2021-12-06 05:30 | NUR ---
RN NOTE FOUND PT ON THE FLOOR WHILE DOING PATIENT ROUNDING. PT PULLED HER RESTRAINTS DESPITE RESTRAINTS IN PLACE IN BILATERAL HANDS. ALL SAFETY MEASURES WERE IN PLACE WHEN THE FALL HAPPENED. CHECKED PT FOR ANY WOUNDS OR BLEEDING. NOTHING NOTED. ASSESSED PT AND ASKED HER FOR ANY PAIN. PT IS AWAKE AND ALERT BUT IS A LITTLE CONFUSED AND DOES NOT RESPOND ACCORDINGLY. ASKED HER HOW SHE FELL, WHAT SHE FEELS BUT CANNOT GET PROPER ANSWER. PUT PT BACK ON THE BED WITH THE HELP OF OTHER STAFF. [place] HOOVER OUT. INFORMED ANITHA HOPKINS AND ORDERED CT STAT. WILL CONTINUE TO MONITOR PT.
--- NOTE | 2021-12-06 05:30 | NUR ---
CALLED BY PRIMARY NURSE FROM PATIENT'S ROOM, NOTED PATIENT ON THE FLOOR, PER PRIMARY NURSE, SHE HEARD A NOISE, AND SHE ATTENDED RIGHT AWAY, HER COMPUTER STATION IN FRONT OF ROOM, PATIENT IS BEING UNCOOPERATIVE WITH CARE SINCE ADMISSION, YELLING AGITATED, ATIVAN DOES NOT HELP AT TIMES, ORDER FOR RESTRAINS OBTAINED EARLIER THIS MORNING, FOR SAME REASON PATIENT TRYING TO GET OUT FROM BED, ASSESSED PATIENT, NO CHANGE IN LOC, BASELINE NEUROLOGICAL STATED, PATIENT CONFUSED UNABLE TO RESPOND PROPER ANSWERS, BUT ABLE TO TACK PULLER MACHINE HER NAME AND DATE OF , WHEN ASKED WHY YOU TRYING TO GET UP FROM BED, SHE STATED " I WAS GOING TO YOUR HOUSE" PATIENT ABLE TO MOVE ALL EXTREMITIES, FIRST SHE DENIED HIT HEAD, THEN SHE STATED SHE HIT HEAD, NOTED A LITTLE BUMP ON FOREHEAD, INFORMED GRETEL SOTELO STRUCTURAL STEEL WORKER AND SHE REPLIED WITH NEW ORDER FOR CT OF HEAD STAT, NO FURTHER ORDERS RECEIVED, WILL TAKE PT TO CT SCAN.
--- NOTE | 2021-12-06 05:40 | NUR ---
TAKING PATIENT TO CT SCAN AT THIS TIME.
--- NOTE | 2021-12-06 06:30 | NUR ---
RN NOTE RECEIVED REPORT FROM LAB FOR BLOOD CULTURE: GRAM + RODS.
--- NOTE | 2021-12-06 06:49 | NUR ---
RN CLOSING NOTE PT BACK IN BED, AFTER A HEAD CT STAT DONE. CURRENTLY WITH SOFT WRIST RESTRAINTS ON BILATERAL HANDS SECURELY FASTENED. BED IN LOWEST POSITION, CALL LIGHT WITHIN REACH. SR UP X 3. PADDED RAILS ON. PT IS A/O X 1-2 AND ANSWERED 2 OUT OF 3 QUESTIONS CORRECTLY BEFORE SHE FELL ASLEEP. PT IS NOW SLEEPING SOUNDLY WITH 1 MILD SEIZURE NOTED. ALL LATEST VS WITHIN NORMAL LIMITS. ALL SAFETY MEASURES IN PLACE: BED LOCKED IN LOWEST POSITION. CALL LIGHT WITHIN REACH. SR UP X 3. PADDED RAILS ON. WILL ENDORSE TO AM SHIFT NURSE FOR TREY.
[2021-12-06] MEDS: BLOOD SUGAR DIAGNOSTIC 1 EACH STRIP IN SCH ×4 (07:45→22:18)
--- NOTE | 2021-12-06 07:57 | NUR ---
RN NOTE SUGAR 69, BREAKFAST GIVEN.
[2021-12-06 08:00] VITALS: BP 143/85
[2021-12-06] MEDS: FUROSEMIDE 40 MG TABLET PO SCH (08:04)
[2021-12-06] MEDS: LEVETIRACETAM (250 MG) 250 MG TABLET PO SCH ×2 (08:04→20:07)
[2021-12-06] MEDS: BENZTROPINE MESYLATE (1 MG) 1 MG TABLET PO SCH ×2 (08:04→16:31)
[2021-12-06] MEDS: clonazePAM 1 MG TABLET PO SCH ×3 (08:04→16:31)
[2021-12-06] MEDS: ZINC SULFATE 220 MG CAPSULE PO SCH (08:05)
[2021-12-06] MEDS: CLOTRIMAZOLE 1% 15 GM TUBE TP SCH ×2 (08:05→16:32)
[2021-12-06] MEDS: FLUOXETINE HCL 20 MG CAPSULE PO SCH (08:05)
[2021-12-06] MEDS: ASCORBIC ACID 500 MG TABLET PO SCH ×2 (08:05→16:31)
[2021-12-06] MEDS: DOCUSATE SODIUM 100 MG CAPSULE PO SCH ×2 (08:05→16:31)
[2021-12-06 08:10] LABS: CALCIUM, SERUM 9.3 mg/dL (8.5-10.1); CREATININE 0.8 mg/dL (0.6-1.3); MAGNESIUM 2.2 mg/dL (1.8-2.4); PHOSPHORUS 2.9 mg/dL (2.5-4.9); POTASSIUM 4.4 mmol/L (3.5-5.1)
[2021-12-06] MEDS: PROSOURCE / PROSTAT (PYXIS) 30 ML UDC GT SCH ×2 (09:25→16:31)
[2021-12-06] MEDS: VANCOMYCIN 1.25 GM in IV D5W 250 ML IV SCH (10:22)
[2021-12-06] MEDS: IV NS 0.9% 1,000 ML IV PRN ×2 (10:28→22:02)
[2021-12-06] MEDS: IV NS 0.9% 250 ML IV PRN (10:28)
--- NOTE | 2021-12-06 10:56 | NUR ---
RN NOTE TONIC CLONIC SEIZURE AT 1052, LASTING APPROXIMATELY 30 SECONDS. VSS, PT PLACED ON SIMPLE MASK FOR OXYGENATION, ATIVAN 2MG IVP GIVEN.
[2021-12-06 12:00] VITALS: BP 117/65
[2021-12-06] MEDS: ALPRAZOLAM 0.25 MG TABLET PO PRN (12:03)
[2021-12-06 14:53] LABS: BASOPHILS % (AUTO) 0.2 % (0.0-2.0); EOSINOPHILS % (AUTO) 2.8 % (0.0-6.0); HEMATOCRIT 31 % (33-45); HEMOGLOBIN 9.7 g/dL (11.5-14.8); LYMPHOCYTES # (AUTO) 1.6 K/uL (0.8-4.8); MEAN CORPUSCULAR HGB CONC 32 g/dl (31.0-36.0); MEAN CORPUSCULAR VOLUME 87 fL (82-100); MONOCYTES # (AUTO) 1.2 K/uL (0.1-1.30); MONOCYTES % (AUTO) 18.1 % (2.0-12.0); NEUTROPHILS # (AUTO) 3.5 K/uL (1.8-8.9); NEUTROPHILS % (AUTO) 53.9 % (43.0-81.0); PLATELET COUNT (AUTO) 144 K/uL (150-450); WHITE BLOOD COUNT (AUTO) 6.4 K/uL (4.3-11.0)
[2021-12-06 16:00] VITALS: BP 130/84
[2021-12-06] MEDS: QUETIAPINE FUMARATE 100 MG TABLET PO SCH ×2 (16:31→20:07)
[2021-12-06] MEDS: RIVAROXABAN 10 MG TABLET PO SCH (17:09)
--- NOTE | 2021-12-06 19:30 | NUR ---
MUNITIONS HANDLER OPENING NOTE RECEIVED PT IN BED, SLEEPING. CURRENTLY ON ROOM AIR, SATURATING AT 98%. PT IS SINUS RHYTHM ON TELE MONITOR, WITH HR IN THE 80s. NO S/SX OF ACUTE RESPI DISTRESS NOTED. BREATHING IS EVEN AND UNLABORED. NO SIGNS OF PAIN OR DISCOMFORT. PT IS ON SEIZURE PRECAUTIONS, NOTED TO HAVE TONIC CLONIC SEIZURES T/O THE SHIFT. IV ACCESS IN [place] MIDLINE, INTACT, PATENT AND FLUSHES WELL, RUNNING NS @ 90 CC/HR. SOFT WRIST RESTRAINTS NOTED IN BILATERAL HANDS. NO SKIN CIRCULATION ISSUES NOTED. ALL SAFETY PRECAUTIONS IN PLACE: BED IN LOWEST POSITION, LOCKED. CALL LIGHT WITHIN REACH. SIDE RAILS UP X3. PADDED RAILS. WILL CONTINUE TO MONITOR CLOSELY T/O THE NIGHT.
[2021-12-06 20:00] VITALS: BP 151/84
[2021-12-06 20:29] LABS: EOSINOPHILS % (MANUAL) 4 % (0-4); LYMPHOCYTES % (MANUAL) 31 % (16-48); MONOCYTES % (MANUAL) 7 % (0-11.0); NEUTROPHILS % (MANUAL) 58 (42-76)
[2021-12-06] MEDS: INSULIN REGULAR, HUMAN 100 UNIT/ML 3 ML VIAL SQ PRN (22:19)
[2021-12-07] VITALS: BP 130/74
[2021-12-07 04:00] VITALS: BP 123/70
[2021-12-07] MEDS: DIVALPROEX SODIUM 500 MG TABLET.DR PO SCH ×3 (04:06→21:59)
--- NOTE | 2021-12-07 06:33 | NUR ---
RN NOTE PT REMAINED STABLE THE WHOLE NIGHT. PT WAS MORE CALM THAN THE PREVIOUS NIGHT PRIMARILY DUIE TO SEROQUEL MEDICATION. A/0 X 2, RESPONDS TO QUESTIONS ACCORDINGLY. SAFETY MAINTAINED. SOFT WRIST RESTRAINTS ON BOTH HANDS STILL IN PLACE. VSS. DUE MEDS GIVEN. NEEDS ATTENDED TO. TURNED AND REPOSITIONED. WILL ENDORSE TO AM SHIFT NURSE FOR TREY.
[2021-12-07 06:58] LABS: BASOPHILS % (AUTO) 0.2 % (0.0-2.0); EOSINOPHILS % (AUTO) 4.1 % (0.0-6.0); HEMATOCRIT 30 % (33-45); HEMOGLOBIN 9.9 g/dL (11.5-14.8); LYMPHOCYTES # (AUTO) 1.7 K/uL (0.8-4.8); MEAN CORPUSCULAR HGB CONC 32 g/dl (31.0-36.0); MEAN CORPUSCULAR VOLUME 87 fL (82-100); MONOCYTES # (AUTO) 0.9 K/uL (0.1-1.30); MONOCYTES % (AUTO) 17.1 % (2.0-12.0); NEUTROPHILS # (AUTO) 2.5 K/uL (1.8-8.9); NEUTROPHILS % (AUTO) 46.6 % (43.0-81.0); PLATELET COUNT (AUTO) 142 K/uL (150-450); WHITE BLOOD COUNT (AUTO) 5.4 K/uL (4.3-11.0)
[2021-12-07 07:06] LABS: CREATININE 0.7 mg/dL (0.6-1.3); MAGNESIUM 1.9 mg/dL (1.8-2.4); PHOSPHORUS 3.4 mg/dL (2.5-4.9); POTASSIUM 3.7 mmol/L (3.5-5.1)
[2021-12-07] MEDS: LORAZEPAM INJ 2 MG/ML VIAL IV PRN ×2 (07:23→16:10)
[2021-12-07] MEDS: BLOOD SUGAR DIAGNOSTIC 1 EACH STRIP IN SCH ×4 (07:39→22:00)
--- NOTE | 2021-12-07 07:59 | NUR ---
RN OPENING NOTES RECEIVED PT IN BED. CURRENTLY ON ROOM AIR, SATURATING AT 98%. PT IS SINUS RHYTHM ON TELE MONITOR, WITH HR IN THE 90s. NO S/SX OF ACUTE RESPI DISTRESS NOTED. BREATHING IS EVEN AND UNLABORED. NO SIGNS OF PAIN OR DISCOMFORT. PT IS ON SEIZURE PRECAUTIONS. IV ACCESS IN [place] MIDLINE, INTACT, PATENT AND FLUSHES WELL, RUNNING NS @ 90 CC/HR. SOFT WRIST RESTRAINTS NOTED IN BILATERAL HANDS. NO SKIN CIRCULATION ISSUES NOTED. SAFETY MEASURES IMPLEMENTED, WILL CONTINUE PLAN OF CARE AND ANTICIPATE NEEDS.
[2021-12-07 08:00] VITALS: BP 125/93
[2021-12-07] MEDS: VANCOMYCIN 1.25 GM in IV D5W 250 ML IV SCH (09:20)
[2021-12-07] MEDS: CLOTRIMAZOLE 1% 15 GM TUBE TP SCH ×2 (09:20→17:31)
[2021-12-07] MEDS: PROSOURCE / PROSTAT (PYXIS) 30 ML UDC GT SCH ×2 (09:22→17:39)
[2021-12-07] MEDS: ZINC SULFATE 220 MG CAPSULE PO SCH (09:23)
[2021-12-07] MEDS: FUROSEMIDE 40 MG TABLET PO SCH (09:24)
[2021-12-07] MEDS: LEVETIRACETAM (250 MG) 250 MG TABLET PO SCH ×2 (09:24→21:59)
[2021-12-07] MEDS: QUETIAPINE FUMARATE 100 MG TABLET PO SCH ×4 (09:25→22:00)
[2021-12-07] MEDS: clonazePAM 1 MG TABLET PO SCH ×3 (09:25→17:35)
[2021-12-07] MEDS: ASCORBIC ACID 500 MG TABLET PO SCH ×2 (09:25→17:35)
[2021-12-07] MEDS: BENZTROPINE MESYLATE (1 MG) 1 MG TABLET PO SCH ×2 (09:25→17:34)
[2021-12-07] MEDS: DOCUSATE SODIUM 100 MG CAPSULE PO SCH ×2 (09:25→17:35)
[2021-12-07 12:00] VITALS: BP 142/73
[2021-12-07 12:49] LABS: BAND % (MANUAL) 2 % (0.0-5.0); EOSINOPHILS % (MANUAL) 1 % (0-4); LYMPHOCYTES % (MANUAL) 32 % (16-48); MONOCYTES % (MANUAL) 15 % (0-11.0); NEUTROPHILS % (MANUAL) 50 (42-76)
[2021-12-07 16:00] VITALS: BP 122/76
[2021-12-07] MEDS: RIVAROXABAN 10 MG TABLET PO SCH (17:36)
--- NOTE | 2021-12-07 18:35 | NUR ---
RN CLOSING NOTES PT IN BED ASLEEP CURRENTLY ON ROOM AIR, SATURATING IN HIGH 90S. PT IS SINUS RHYTHM ON TELE MONITOR, WITH HR IN THE 90s. NO S/SX OF ACUTE RESPI DISTRESS NOTED. BREATHING IS EVEN AND UNLABORED. NO SIGNS OF PAIN OR DISCOMFORT. PT IS ON SEIZURE PRECAUTIONS. IV ACCESS IN [place] MIDLINE, INTACT, PATENT AND FLUSHES WELL, RUNNING NS @ 90 CC/HR. SOFT WRIST RESTRAINTS NOTED IN BILATERAL HANDS. NO SKIN CIRCULATION ISSUES NOTED. SAFETY MEASURES IMPLEMENTED, WILL ENDORSE TO NIGHTSHIFT RN FOR CONTINUATION OF CARE.
[2021-12-07 20:00] VITALS: BP 137/70
--- NOTE | 2021-12-07 20:49 | NUR ---
RELIGIOUS HEALER OPENING NOTES: RECEIVED PATIENT SLEEP IN BED COMFORTABLY, BED IN LOW POSITION CALL LIGHTS WITHIN REACH, NO COMPLAIN OF PAIN AND DISCOMFORT AT THIS TIME, ON ROOM AIR SATURATING WELL, PATIENT IN BILATERAL SOFT WRIST RESTRAINT, CHECK AND RELEASE Q2H, ON [id number] NO SYMPTOMS WAS OBSERVED, IV LINE AT [place] WITH ONGOING NSS@90ML/HR INFUSING WELL, PATIENT ON MONITOR FOR FALL, KEPT CLEAN AND DRY ALL NEEDS MET WILL CONTINUE TO MONITOR.
[2021-12-07] MEDS: IV NS 0.9% 1,000 ML IV PRN (21:05)
--- NOTE | 2021-12-07 22:43 | NUR ---
RN NOTES: BLOOD SUGAR-70/ NO INSULIN GIVEN OUT OF PARAMETER
[2021-12-08] VITALS: BP 142/68
[2021-12-08 04:00] VITALS: BP 137/79
[2021-12-08] MEDS: DIVALPROEX SODIUM 500 MG TABLET.DR PO SCH ×3 (05:52→22:16)
--- NOTE | 2021-12-08 06:52 | NUR ---
OUTPATIENT THERAPIST CLOSING NOTES: PATIENT SLEEP IN BED COMFORTABLY, AROUSABLE TO VERBAL STIMULI, BED IN LOW POSITION, CALL LIGHTS WITHIN REACH, NO COMPLAIN OF PAIN AND DISCOMFORT AT THIS TIME, ON O2 INHALATION AT 3LPM SATURATING WELL, IV LINE AT [place] ML WITH ONGOING NSS@90ML/HR INFUSING WELL, PATIENT KEPT CLEAN AND DRY ALL NEEDS MET ENDORSE TO INCOMING SHIFT.
[2021-12-08 08:00] VITALS: BP 134/61
[2021-12-08] MEDS: ZINC SULFATE 220 MG CAPSULE PO SCH (09:11)
[2021-12-08] MEDS: clonazePAM 1 MG TABLET PO SCH ×3 (09:11→17:05)
[2021-12-08] MEDS: QUETIAPINE FUMARATE 100 MG TABLET PO SCH ×5 (09:11→22:16)
[2021-12-08] MEDS: VANCOMYCIN 1.25 GM in IV D5W 250 ML IV SCH (09:11)
[2021-12-08] MEDS: DOCUSATE SODIUM 100 MG CAPSULE PO SCH ×2 (09:11→17:05)
[2021-12-08] MEDS: BLOOD SUGAR DIAGNOSTIC 1 EACH STRIP IN SCH ×4 (09:11→22:21)
[2021-12-08] MEDS: CLOTRIMAZOLE 1% 15 GM TUBE TP SCH ×2 (09:12→17:09)
[2021-12-08] MEDS: FUROSEMIDE 40 MG TABLET PO SCH (09:12)
[2021-12-08] MEDS: BENZTROPINE MESYLATE (1 MG) 1 MG TABLET PO SCH ×2 (09:12→17:05)
[2021-12-08] MEDS: ASCORBIC ACID 500 MG TABLET PO SCH ×2 (09:12→17:05)
[2021-12-08] MEDS: LEVETIRACETAM (250 MG) 250 MG TABLET PO SCH ×2 (09:22→22:16)
[2021-12-08] MEDS: PROSOURCE / PROSTAT (PYXIS) 30 ML UDC GT SCH ×2 (09:22→17:08)
[2021-12-08 11:50] LABS: CALCIUM, SERUM 8.9 mg/dL (8.5-10.1); CREATININE 0.7 mg/dL (0.6-1.3); POTASSIUM 3.6 mmol/L (3.5-5.1)
[2021-12-08 12:00] VITALS: BP 103/61
[2021-12-08] MEDS: IV NS 0.9% 1,000 ML IV PRN (15:57)
[2021-12-08 16:00] VITALS: BP 129/65
[2021-12-08] MEDS: RIVAROXABAN 10 MG TABLET PO SCH (17:13)
--- NOTE | 2021-12-08 19:17 | NUR ---
RN CLOSING NOTES PT IN BED NO S/S OF DISTRESS. ON 3 L NASAL CANULA SATS IN THE HI 90'S. RUNNING FLUIDS INTO THE [place] MIDLINE INTACT NO S/S OF INFILTRATION. DRESSING CLEAN AND DRY.
--- NOTE | 2021-12-08 19:30 | NUR ---
RN NOTE PATIENT IN BED, AO X 2, IN NO ACUTE DISTRESS, SATURATION AT 100% ON 2L VIA NC, SR ON THE MONITOR, HR IS 84. [place] MIDLINE WITH NS INFUSING AT 90 ML/HR. EXTERNAL URINARY CATHETER IN PLACE, NOTED MODERATE AMOUNT OF CLEAR, YELLOW OUTPUT. SAFETY MEASURES IMPLEMENTED. PATIENT BED ALARM IS ON. HEAD OF BED ELEVATED. BED IS LOCKED, IN LOWEST POSITION AND SIDE RAILS UP. CALL LIGHT WITHIN REACH OF THE PATIENT. WILL CONTINUE TO MONITOR AND REASSESS FOR ANY CHANGES.
[2021-12-08 20:00] VITALS: BP 123/61
[2021-12-09] VITALS (7 sets, daily range): BP systolic 112–139; BP diastolic 58–78
[2021-12-09] MEDS: IV NS 0.9% 1,000 ML IV PRN ×2 (03:41→16:47)
[2021-12-09] MEDS: DIVALPROEX SODIUM 500 MG TABLET.DR PO SCH ×3 (05:37→22:12)
[2021-12-09 07:24] LABS: BASOPHILS % (AUTO) 0.2 % (0.0-2.0); HEMATOCRIT 33 % (33-45); HEMOGLOBIN 10.7 g/dL (11.5-14.8); LYMPHOCYTES # (AUTO) 1.5 K/uL (0.8-4.8); LYMPHOCYTES % (AUTO) 25.6 % (20.0-44.0); MEAN CORPUSCULAR HGB CONC 32 g/dl (31.0-36.0); MEAN CORPUSCULAR VOLUME 87 fL (82-100); MONOCYTES # (AUTO) 0.6 K/uL (0.1-1.30); MONOCYTES % (AUTO) 10.3 % (2.0-12.0); NEUTROPHILS # (AUTO) 3.5 K/uL (1.8-8.9); NEUTROPHILS % (AUTO) 60.9 % (43.0-81.0); PLATELET COUNT (AUTO) 150 K/uL (150-450); RED BLOOD CELL COUNT(AUTO) 3.82 MIL/uL (4.0-5.2); WHITE BLOOD COUNT (AUTO) 5.8 K/uL (4.3-11.0)
[2021-12-09 07:49] LABS: CALCIUM, SERUM 8.9 mg/dL (8.5-10.1); CREATININE 0.6 mg/dL (0.6-1.3); MAGNESIUM 1.7 mg/dL (1.8-2.4); PHOSPHORUS 4.1 mg/dL (2.5-4.9); POTASSIUM 3.7 mmol/L (3.5-5.1)
[2021-12-09] MEDS: BLOOD SUGAR DIAGNOSTIC 1 EACH STRIP IN SCH ×4 (07:58→22:17)
[2021-12-09] MEDS: VANCOMYCIN 1.25 GM in IV D5W 250 ML IV SCH (08:05)
[2021-12-09] MEDS: IV NS 0.9% 250 ML IV PRN (08:32)
[2021-12-09] MEDS: ASCORBIC ACID 500 MG TABLET PO SCH ×2 (09:49→17:30)
[2021-12-09] MEDS: QUETIAPINE FUMARATE 100 MG TABLET PO SCH ×4 (09:49→22:13)
[2021-12-09] MEDS: LEVETIRACETAM (250 MG) 250 MG TABLET PO SCH ×2 (09:49→22:13)
[2021-12-09] MEDS: DOCUSATE SODIUM 100 MG CAPSULE PO SCH ×2 (09:49→17:00)
[2021-12-09] MEDS: FUROSEMIDE 40 MG TABLET PO SCH (09:49)
[2021-12-09] MEDS: clonazePAM 1 MG TABLET PO SCH ×3 (09:50→17:00)
[2021-12-09] MEDS: BENZTROPINE MESYLATE (1 MG) 1 MG TABLET PO SCH ×2 (09:50→17:30)
[2021-12-09] MEDS: ZINC SULFATE 220 MG CAPSULE PO SCH (09:50)
[2021-12-09] MEDS: CLOTRIMAZOLE 1% 15 GM TUBE TP SCH ×2 (09:56→17:53)
[2021-12-09] MEDS: PROSOURCE / PROSTAT (PYXIS) 30 ML UDC GT SCH ×2 (09:56→17:30)
--- NOTE | 2021-12-09 10:25 | NUR ---
RN NOTE NOTIFIED DR SOTELO OF PATIENTS SEIZURE STATUS, ASSESSMENT AND VITALS. MD STATED TO CALL RAPID RESPONSE.
[2021-12-09] MEDS: LORAZEPAM INJ 2 MG/ML VIAL IV PRN (10:35)
--- NOTE | 2021-12-09 11:04 | NUR ---
RN NOTE PATIENT RETURNED FROM HEAD CT WITHOUT CONTRAST.
[2021-12-09 13:44] LABS: ABG BASE EXCESS 6.5 mmol/L; ABG OXYGEN SATURATION 97.5 % (92.0-98.5); ABG PCO2 55.5 mmHg (35.0-45.0); ABG PH 7.389 (7.350-7.450); ABG PO2 105.7 mmHg (75.0-100.0); AaDO2 130.2 mmHg; COHb 0.3 % (0.5-1.5); MetHb 0.1 % (0.0-1.5); O2Hb 97.1 % (94.0-97.0); SITE, ABG Left Radial; VENT MODE, BG NC 5LPM
[2021-12-09] MEDS: INSULIN REGULAR, HUMAN 100 UNIT/ML 3 ML VIAL SQ PRN (13:49)
[2021-12-09] MEDS: Magnesium 1GM/D5W 100ML PREMIX 100 ML IV SCH ×2 (14:20→15:37)
[2021-12-09] MEDS: RIVAROXABAN 10 MG TABLET PO SCH (17:32)
--- NOTE | 2021-12-09 19:20 | NUR ---
RN NOTE PATIENT IN BED, AO X 2, IN NO ACUTE DISTRESS, SATURATION AT 100% ON 2L VIA NC, SR ON THE MONITOR, HR IS 79. [place] MIDLINE WITH NS INFUSING AT 90 ML/HR. EXTERNAL URINARY CATHETER IN PLACE, NOTED MODERATE AMOUNT OF CLEAR, YELLOW OUTPUT. SAFETY MEASURES IMPLEMENTED. PATIENT BED ALARM IS ON. HEAD OF BED ELEVATED. BED IS LOCKED, IN LOWEST POSITION AND SIDE RAILS UP. CALL LIGHT WITHIN REACH OF THE PATIENT. WILL CONTINUE TO MONITOR AND REASSESS FOR ANY CHANGES.
--- NOTE | 2021-12-09 19:40 | NUR ---
RN CLOSING NOTE PATIENT IN BED, AO X 2, IN NO ACUTE DISTRESS, SATURATION AT 100% ON 4L VIA NC, SR ON THE MONITOR. [place] MIDLINE WITH NS INFUSING AT 90 ML/HR. ALL SAFETY MEASURES IN PLACE. PATIENT BED ALARM IS ON. HEAD OF BED ELEVATED. BED IS LOCKED, IN LOWEST POSITION AND SIDE RAILS UP. CALL LIGHT WITHIN REACH OF THE PATIENT. WILL ENDORSE CONTINUITY OF CARE TO PROGRAM DEVELOPMENT MANAGER NURSE
[2021-12-10] VITALS (7 sets, daily range): BP systolic 128–163; BP diastolic 62–81
[2021-12-10] MEDS: ALPRAZOLAM 0.25 MG TABLET PO PRN (02:45)
[2021-12-10] MEDS: DIVALPROEX SODIUM 500 MG TABLET.DR PO SCH ×3 (05:25→21:36)
[2021-12-10] MEDS: IV NS 0.9% 1,000 ML IV PRN ×2 (05:26→20:04)
[2021-12-10 07:18] LABS: CALCIUM, SERUM 8.9 mg/dL (8.5-10.1); CREATININE 0.7 mg/dL (0.6-1.3); MAGNESIUM 2.1 mg/dL (1.8-2.4); PHOSPHORUS 3.3 mg/dL (2.5-4.9); POTASSIUM 4.8 mmol/L (3.5-5.1)
--- NOTE | 2021-12-10 07:30 | NUR ---
STEEL ERECTOR AM NOTE PT IN BED, AO X 2, GARBLED SPEECH, DELAYED RESPONSE, ON 2L NC, O2 100%. NO S/S OF RESP DISTRESS, NO SOB OR COUGH, BREATHING EVEN AND UNLABORED. SR HR 76 ON MONITOR. DENIES CHEST PAIN OR DISCOMFORT, WITH [place] MIDLINE WITH NS AT 90 ML/HR INFUSING WELL, SITE CLEAR. SEE NURSING FLOWSHEET FOR SKIN ISSUES, WILL PERFORM PRESCRIBED WOUND CARE AND SKIN MANAGEMENT IN A WHILE. PUREED DIET, CRUSH MEDS, BED IN LOWEST POSITION, CALL LIGHT WITHIN REACH, SIDE RAILS UP X2, RAILS PADDED. POC DISCUSSED, NEEDS FURTHER TEACHINGS. SAFETY MEASURES IN PLACE. BED LOW LOCKED, SR UPX 2, CALL LIGHT WITHIN REACH. WILL CONT TO MONITOR
[2021-12-10] MEDS: BLOOD SUGAR DIAGNOSTIC 1 EACH STRIP IN SCH ×4 (07:58→22:16)
[2021-12-10] MEDS: VANCOMYCIN 1.25 GM in IV D5W 250 ML IV SCH (08:14)
[2021-12-10 08:55] LABS: BASOPHILS % (AUTO) 0.3 % (0.0-2.0); EOSINOPHILS % (AUTO) 1.4 % (0.0-6.0); HEMATOCRIT 38 % (33-45); HEMOGLOBIN 12.3 g/dL (11.5-14.8); LYMPHOCYTES # (AUTO) 1.5 K/uL (0.8-4.8); MEAN CORPUSCULAR HGB CONC 32 g/dl (31.0-36.0); MEAN CORPUSCULAR VOLUME 88 fL (82-100); MONOCYTES # (AUTO) 0.5 K/uL (0.1-1.30); NEUTROPHILS # (AUTO) 6.6 K/uL (1.8-8.9); NEUTROPHILS % (AUTO) 75.3 % (43.0-81.0); PLATELET COUNT (AUTO) 61 K/uL (150-450); RED BLOOD CELL COUNT(AUTO) 4.32 MIL/uL (4.0-5.2); WHITE BLOOD COUNT (AUTO) 8.8 K/uL (4.3-11.0)
--- NOTE | 2021-12-10 09:30 | NUR ---
RN NOTES DUE MEDS GIVEN
[2021-12-10] MEDS: ASCORBIC ACID 500 MG TABLET PO SCH ×2 (09:56→17:07)
[2021-12-10] MEDS: LEVETIRACETAM (250 MG) 250 MG TABLET PO SCH ×2 (09:56→21:36)
[2021-12-10] MEDS: ZINC SULFATE 220 MG CAPSULE PO SCH (09:56)
[2021-12-10] MEDS: PROSOURCE / PROSTAT (PYXIS) 30 ML UDC GT SCH ×2 (09:57→17:07)
[2021-12-10] MEDS: BENZTROPINE MESYLATE (1 MG) 1 MG TABLET PO SCH ×2 (09:57→17:07)
[2021-12-10] MEDS: FUROSEMIDE 40 MG TABLET PO SCH (09:57)
[2021-12-10] MEDS: clonazePAM 1 MG TABLET PO SCH ×3 (09:57→17:11)
[2021-12-10] MEDS: QUETIAPINE FUMARATE 100 MG TABLET PO SCH ×4 (09:57→21:36)
[2021-12-10] MEDS: DOCUSATE SODIUM 100 MG CAPSULE PO SCH ×2 (09:57→17:07)
[2021-12-10] MEDS: CLOTRIMAZOLE 1% 15 GM TUBE TP SCH ×2 (09:58→17:08)
[2021-12-10 11:12] LABS: BAND % (MANUAL) 4 % (0.0-5.0); BASOPHILS % (MANUAL) 0 % (0.0-2.0); EOSINOPHILS % (MANUAL) 0 % (0-4); LYMPHOCYTES % (MANUAL) 24 % (16-48); MONOCYTES % (MANUAL) 9 % (0-11.0); NEUTROPHILS % (MANUAL) 63 (42-76)
[2021-12-10] MEDS: RIVAROXABAN 10 MG TABLET PO SCH (17:08)
--- NOTE | 2021-12-10 18:57 | NUR ---
PALEOBOTANIST CLOSING NOTE PT IN BED, AO X 2, GARBLED SPEECH, DELAYED RESPONSE, ON 2L NC, O2 100%. NO S/S OF RESP DISTRESS, NO SOB OR COUGH, BREATHING EVEN AND UNLABORED. SR HR 76 ON MONITOR. DENIES CHEST PAIN OR DISCOMFORT, WITH [place] MID[place] WITH NS AT 90 ML/HR INFUSING WELL, SITE CLEAR. PM CARE AND PRESCRIBED WOUND CARE AND SKIN MANAGEMENT DONE EARLIER. PUREED DIET, CRUSH MEDS, BED IN LOWEST POSITION, CALL LIGHT WITHIN REACH, SIDE RAILS UP X2, RAILS PADDED. SAFETY MEASURES IN PLACE. BED LOW LOCKED, SR UPX 2, CALL LIGHT WITHIN REACH. ALL NEEDS MET AT THIS TIME. WILL ENDORSE TO NEXT SHIFT.
--- NOTE | 2021-12-10 19:05 | NUR ---
RN OPENING NOTES RECEIVED PATIENT ON BED, AWAKE, VERBALLY RESPONSIVE. CALM AND COOPERATIVE. ON NASAL CANULA, SATING AT 96%. RESPIRATORY EVEN AND UNLABORED, NO SOB NOTED. AFEBRILE, NO S/S OF DISTRESS NOTED. WITH RIGHT FORE ARM MID LINE, PATENT, INTACT, FLUSHED WITH NS. NO S/S OF INFILTRATION NOTED. WITH IVF NS @ 90 ML/HR. REPOSITION PATIENT EVERY 2 HRS. ASPIRATION AND SEIZURE PRECAUTION PROVIDED. WITH BILATERAL HAND SOFT WRIST RESTRAINT, REASSESS AND RELEASE Q2HR. ALL SAFETY PRECAUTION PROVIDED, BED IN LOWEST POSITION, LOCKED. BED ALARM ARMED. CALL LIGHT WITH IN REACH. CONTINUE TO MONITOR.
[2021-12-10] MEDS: VANCOMYCIN HCL 0.75 GM in IV D5W 250 ML IV SCH (20:04)
[2021-12-10] MEDS: INSULIN REGULAR, HUMAN 100 UNIT/ML 3 ML VIAL SQ PRN (22:17)
--- NOTE | 2021-12-10 22:19 | NUR ---
RN NOTES BLOOD SUGAR 96 mg/dL, NO INSULIN COVERAGE PER SLIDING SCALE, NO S/S OF HYPOGLYCEMIA NOTED
[2021-12-11] VITALS: BP 133/73
[2021-12-11 04:00] VITALS: BP 130/82
[2021-12-11] MEDS: DIVALPROEX SODIUM 500 MG TABLET.DR PO SCH ×3 (04:58→21:04)
[2021-12-11 06:24] LABS: BASOPHILS % (AUTO) 0.3 % (0.0-2.0); HEMATOCRIT 30 % (33-45); HEMOGLOBIN 9.7 g/dL (11.5-14.8); LYMPHOCYTES # (AUTO) 1.3 K/uL (0.8-4.8); LYMPHOCYTES % (AUTO) 18.9 % (20.0-44.0); MEAN CORPUSCULAR HGB CONC 32 g/dl (31.0-36.0); MEAN CORPUSCULAR VOLUME 87 fL (82-100); MONOCYTES # (AUTO) 0.8 K/uL (0.1-1.30); MONOCYTES % (AUTO) 11.7 % (2.0-12.0); NEUTROPHILS # (AUTO) 4.5 K/uL (1.8-8.9); NEUTROPHILS % (AUTO) 66.1 % (43.0-81.0); PLATELET COUNT (AUTO) 178 K/uL (150-450); RED BLOOD CELL COUNT(AUTO) 3.47 MIL/uL (4.0-5.2); WHITE BLOOD COUNT (AUTO) 6.8 K/uL (4.3-11.0)
--- NOTE | 2021-12-11 06:46 | NUR ---
RN NOTES PATIENT REMAINED STABLE THROUGH OUT THE SHIFT. RESPIRATORY EVEN AND UNLABORED, NO SOB NOTED. AFEBRILE, NO S/S OF DISTRESS NOTED. WITH IVF NS @ 90 ML/HR. REPOSITION PATIENT EVERY 2 HRS. ASPIRATION AND SEIZURE PRECAUTION PROVIDED. WITH BILATERAL HAND SOFT WRIST RESTRAINT, REASSESS AND RELEASE Q2HR. FOR CIRCULATION CHECKED. ALL DUE MEDS GIVEN. ALL SAFETY PRECAUTION PROVIDED, BED IN LOWEST POSITION, LOCKED. BED ALARM ARMED. CALL LIGHT WITH IN REACH. REPORT GIVEN TO MORNING SHIFT NURSE FOR CONTINUITY OF CARE.
[2021-12-11] MEDS: IV NS 0.9% 1,000 ML IV PRN ×2 (06:51→22:08)
[2021-12-11] MEDS: BLOOD SUGAR DIAGNOSTIC 1 EACH STRIP IN SCH ×4 (07:30→22:11)
[2021-12-11 08:00] VITALS: BP 158/92
[2021-12-11] MEDS: LEVETIRACETAM (250 MG) 250 MG TABLET PO SCH ×2 (08:30→21:05)
[2021-12-11] MEDS: clonazePAM 1 MG TABLET PO SCH ×3 (08:30→17:13)
[2021-12-11] MEDS: ASCORBIC ACID 500 MG TABLET PO SCH ×2 (08:30→17:12)
[2021-12-11] MEDS: ZINC SULFATE 220 MG CAPSULE PO SCH (08:30)
[2021-12-11] MEDS: FUROSEMIDE 40 MG TABLET PO SCH (08:30)
[2021-12-11] MEDS: QUETIAPINE FUMARATE 100 MG TABLET PO SCH ×4 (08:30→21:04)
[2021-12-11] MEDS: BENZTROPINE MESYLATE (1 MG) 1 MG TABLET PO SCH ×2 (08:30→17:13)
[2021-12-11] MEDS: DOCUSATE SODIUM 100 MG CAPSULE PO SCH ×2 (08:31→17:12)
[2021-12-11] MEDS: PROSOURCE / PROSTAT (PYXIS) 30 ML UDC GT SCH ×2 (08:31→17:05)
[2021-12-11] MEDS: VANCOMYCIN HCL 0.75 GM in IV D5W 250 ML IV SCH ×2 (08:32→20:50)
[2021-12-11] MEDS: CLOTRIMAZOLE 1% 15 GM TUBE TP SCH ×2 (08:32→17:05)
[2021-12-11 10:00] LABS: CALCIUM, SERUM 8.9 mg/dL (8.5-10.1); CREATININE 0.6 mg/dL (0.6-1.3); PHOSPHORUS 3.3 mg/dL (2.5-4.9); POTASSIUM 4.3 mmol/L (3.5-5.1)
[2021-12-11 12:00] VITALS: BP 142/70
[2021-12-11 16:00] VITALS: BP 134/79
[2021-12-11] MEDS: RIVAROXABAN 10 MG TABLET PO SCH (17:13)
[2021-12-11] MEDS: DEXTROSE 50%-WATER 50 ML DISP.SYRIN IV PRN (17:35)
--- NOTE | 2021-12-11 19:12 | NUR ---
RN CLOSING NOTES PATIENT REMAINED STABLE THROUGH OUT THE SHIFT. RESPIRATORY EVEN AND UNLABORED, NO SOB NOTED. AFEBRILE, NO S/S OF DISTRESS NOTED. WITH IVF NS @ 90 ML/HR. REPOSITION PATIENT EVERY 2 HRS. ASPIRATION AND SEIZURE PRECAUTION PROVIDED. AT 1800 PATIENT'S BLOOD SUGAR 55 DEXTROSE 50% WAS GIVEN THROUGH THE IV AND ORANGE JUICE PO. REASSESSED THE PATIENT AND THE BLOOD SUGAR WAS 100 AFTER AN HOUR. WITH BILATERAL HAND SOFT WRIST RESTRAINT, REASSESS AND RELEASE Q2HR FOR CIRCULATION CHECKED. ALL DUE MEDS GIVEN. ALL SAFETY PRECAUTION PROVIDED, BED IN LOWEST POSITION, LOCKED. BED ALARM ARMED. CALL LIGHT WITH IN REACH. REPORT GIVEN TO WASHER HAND NURSE FOR CONTINUITY OF CARE.
--- NOTE | 2021-12-11 19:50 | NUR ---
RN OPENING NOTES RECEIVED PATIENT IN BED, AWAKE, A/0 X2, VERBALLY RESPONSIVE. NOTED EPISODES OF ON AND OFF SCREAMING AND YELLING. ON ROOM AIR AT THIS MOMENT AND PT TOLERATED WELL. O2 SAT 97%. IV ACCESS ON RFA MID LINE INTACT AND PATENT. NO S/S OF INFILTRATION. RUNNING IVF NS @ 90 ML/HR. WITH BILATERAL SOFT WRIST RESTRAINT ON. ON PURE WICK CATHETER IN PLACE. DRAINING BY GRAVITY. NOTED WITH YELLOWISH/CLEAR URINE. ALL SAFETY MEASURES IN PLACE. BED IN LOWEST POSITION AND LOCKED. PLACE CALL LIGHT WITH IN REACH. CONTINUE TO MONITOR.
[2021-12-11 20:00] VITALS: BP 150/99
[2021-12-11] MEDS: INSULIN REGULAR, HUMAN 100 UNIT/ML 3 ML VIAL SQ PRN (22:12)
--- NOTE | 2021-12-11 22:13 | NUR ---
RN NOTES: PT'S BLOOD SUGAR 136. 2 UNITS OF REGULAR INSULIN GIVEN. NO S/S OF HYPER/HYPOGLYCEMIA. WILL CONTINUE TO MONITOR
[2021-12-12] VITALS: BP 157/84
[2021-12-12 04:00] VITALS: BP 148/84
[2021-12-12] MEDS: DIVALPROEX SODIUM 500 MG TABLET.DR PO SCH ×3 (05:23→21:03)
--- NOTE | 2021-12-12 06:30 | NUR ---
RN CLOSING NOTES PATIENT IN BED, AWAKE, A/0 X2, VERBALLY RESPONSIVE. STILL NOTED ON AND OFF SCREAMING AND YELLING. ON ROOM AIR AT THIS MOMENT AND PT TOLERATED WELL. O2 SAT 97%. IV ACCESS ON RFA MID LINE INTACT AND PATENT. NO S/S OF INFILTRATION. RUNNING IVF NS @ 90 ML/HR. WITH BILATERAL SOFT WRIST RESTRAINT ON. RELEASED Q 2HOURS TO ASSESS CIRCULATIONS. ON PURE WICK CATHETER IN PLACE. DRAINING BY GRAVITY. NOTED WITH YELLOWISH/CLEAR URINE. ALL DUE MEDS GIVEN ORDERED. ALL SAFETY MEASURES IN PLACE. BED IN LOWEST POSITION AND LOCKED. PLACE CALL LIGHT WITH IN REACH. WILL ENDORSE TO MORNING SHIFT NURSE.
[2021-12-12 07:18] LABS: BASOPHILS % (AUTO) 0.6 % (0.0-2.0); EOSINOPHILS % (AUTO) 4.1 % (0.0-6.0); HEMATOCRIT 30 % (33-45); HEMOGLOBIN 9.8 g/dL (11.5-14.8); LYMPHOCYTES # (AUTO) 1.4 K/uL (0.8-4.8); LYMPHOCYTES % (AUTO) 21.3 % (20.0-44.0); MEAN CORPUSCULAR HGB CONC 33 g/dl (31.0-36.0); MEAN CORPUSCULAR VOLUME 86 fL (82-100); MONOCYTES # (AUTO) 0.7 K/uL (0.1-1.30); MONOCYTES % (AUTO) 10.6 % (2.0-12.0); NEUTROPHILS # (AUTO) 4.2 K/uL (1.8-8.9); NEUTROPHILS % (AUTO) 63.4 % (43.0-81.0); PLATELET COUNT (AUTO) 179 K/uL (150-450); RED BLOOD CELL COUNT(AUTO) 3.46 MIL/uL (4.0-5.2); WHITE BLOOD COUNT (AUTO) 6.7 K/uL (4.3-11.0)
[2021-12-12 08:00] VITALS: BP 113/45
[2021-12-12] MEDS: ZINC SULFATE 220 MG CAPSULE PO SCH (08:35)
[2021-12-12] MEDS: QUETIAPINE FUMARATE 100 MG TABLET PO SCH ×4 (08:35→21:03)
[2021-12-12] MEDS: BENZTROPINE MESYLATE (1 MG) 1 MG TABLET PO SCH ×2 (08:35→17:15)
[2021-12-12] MEDS: ASCORBIC ACID 500 MG TABLET PO SCH ×2 (08:35→17:15)
[2021-12-12] MEDS: LEVETIRACETAM (250 MG) 250 MG TABLET PO SCH ×2 (08:35→21:04)
[2021-12-12] MEDS: clonazePAM 1 MG TABLET PO SCH ×3 (08:35→17:15)
[2021-12-12] MEDS: DOCUSATE SODIUM 100 MG CAPSULE PO SCH ×2 (08:35→17:15)
[2021-12-12] MEDS: VANCOMYCIN HCL 0.75 GM in IV D5W 250 ML IV SCH ×2 (08:35→20:55)
[2021-12-12] MEDS: FUROSEMIDE 40 MG TABLET PO SCH (08:35)
[2021-12-12] MEDS: CLOTRIMAZOLE 1% 15 GM TUBE TP SCH ×2 (08:36→17:16)
[2021-12-12] MEDS: PROSOURCE / PROSTAT (PYXIS) 30 ML UDC GT SCH ×2 (08:36→17:16)
[2021-12-12] MEDS: BLOOD SUGAR DIAGNOSTIC 1 EACH STRIP IN SCH ×4 (09:00→21:56)
[2021-12-12 10:16] LABS: CREATININE 0.8 mg/dL (0.6-1.3); MAGNESIUM 1.9 mg/dL (1.8-2.4); PHOSPHORUS 3.7 mg/dL (2.5-4.9); POTASSIUM 3.4 mmol/L (3.5-5.1)
[2021-12-12] MEDS: IV NS 0.9% 1,000 ML IV PRN (10:30)
[2021-12-12 10:37] LABS: CALCIUM, SERUM 9.4 mg/dL (8.5-10.1)
[2021-12-12 12:00] VITALS: BP 119/66
[2021-12-12 16:00] VITALS: BP 148/74
[2021-12-12] MEDS: RIVAROXABAN 10 MG TABLET PO SCH (17:15)
--- NOTE | 2021-12-12 18:45 | NUR ---
RN CLOSING NOTES PATIENT IN BED, AWAKE, A/0 X2, VERBALLY RESPONSIVE WITH ON AND OFF SCREAMING AROUND NOON. ON ROOM AIR O2 SATURATING BETWEEN 96-99%. IV ACCESS ON RFA MID LINE INTACT AND PATENT. NO S/S OF INFILTRATION. RUNNING IVF NS @90 ML/HR. WITH BILATERAL SOFT WRIST RESTRAINT ON. RELEASED Q 2HOURS TO ASSESS CIRCULATIONS. ON PURE WICK CATHETER IN PLACE. DRAINING BY GRAVITY. NOTED WITH YELLOWISH/CLEAR URINE 2200 CC IN MY SHIFT. ALL DUE MEDS GIVEN ORDERED. ALL SAFETY MEASURES IN PLACE. BED IN LOWEST POSITION AND LOCKED. PLACE CALL LIGHT WITH IN REACH. WILL ENDORSE TO BLEACH SUPERVISOR NURSE.
--- NOTE | 2021-12-12 19:44 | NUR ---
RN OPENING NOTES RECEIVED PATIENT IN BED, AWAKE, A/0 X2, VERBALLY RESPONSIVE. NOTED EPISODES OF ON AND OFF SCREAMING AND YELLING. ON ROOM AIR AT THIS MOMENT AND PT TOLERATED WELL. IV ACCESS ON RFA MID LINE INTACT AND PATENT. NO S/S OF INFILTRATION. RUNNING IVF NS @ 90 ML/HR. WITH BILATERAL SOFT WRIST RESTRAINT ON. ON PURE WICK CATHETER IN PLACE. DRAINING BY GRAVITY. NOTED WITH YELLOWISH/CLEAR URINE. ALL SAFETY MEASURES IN PLACE. BED IN LOWEST POSITION AND LOCKED. PLACE CALL LIGHT WITH IN REACH. CONTINUE TO MONITOR.
[2021-12-12 20:00] VITALS: BP 159/82
[2021-12-12] MEDS: INSULIN REGULAR, HUMAN 100 UNIT/ML 3 ML VIAL SQ PRN (21:57)
[2021-12-13] VITALS: BP 146/86
[2021-12-13] MEDS: IV NS 0.9% 1,000 ML IV PRN (01:42)
[2021-12-13 04:00] VITALS: BP 155/78
[2021-12-13] MEDS: DIVALPROEX SODIUM 500 MG TABLET.DR PO SCH ×2 (05:53→12:06)
[2021-12-13 06:14] LABS: CALCIUM, SERUM 7.5 mg/dL (8.5-10.1); CREATININE 0.6 mg/dL (0.6-1.3); MAGNESIUM 1.6 mg/dL (1.8-2.4); PHOSPHORUS 3.8 mg/dL (2.5-4.9); POTASSIUM 3.1 mmol/L (3.5-5.1)
--- NOTE | 2021-12-13 06:50 | NUR ---
RN CLOSING NOTES PATIENT IN BED, AWAKE, A/0 X2, VERBALLY RESPONSIVE. REMAIN CALM THROUGH ALL NIGHT. ON ROOM AIR AND PT TOLERATED WELL. O2 SAT 98%. IV ACCESS ON RFA MID LINE INTACT AND PATENT. NO S/S OF INFILTRATION. RUNNING IVF NS @ 90 ML/HR. WITH BILATERAL SOFT WRIST RESTRAINT ON. RELEASED Q 2HOURS TO CHECK CIRCULATION. ON PURE WICK CATHETER IN PLACE. DRAINING BY GRAVITY. NOTED WITH YELLOWISH/CLEAR URINE. ALL DUE MEDS GIVEN ORDERED. ALL SAFETY MEASURES IN PLACE. BED IN LOWEST POSITION AND LOCKED. PLACE CALL LIGHT WITH IN REACH. WILL ENDORSE TO MORNING SHIFT NURSE.
[2021-12-13] MEDS: VANCOMYCIN HCL 0.75 GM in IV D5W 250 ML IV SCH (07:26)
[2021-12-13] MEDS: BLOOD SUGAR DIAGNOSTIC 1 EACH STRIP IN SCH ×2 (07:27→11:27)
[2021-12-13] MEDS: DEXTROSE 50%-WATER 50 ML DISP.SYRIN IV PRN (07:55)
[2021-12-13 08:00] VITALS: BP 140/66
--- NOTE | 2021-12-13 08:09 | NUR ---
RN OPENING NOTES PATIENT IN BED, AWAKE, A/0 X2, VERBALLY RESPONSIVE. ON ROOM AIR AND PT TOLERATED WELL. O2 SAT 97%. IV ACCESS ON RFA MID LINE INTACT AND PATENT. NO S/S OF INFILTRATION. RUNNING IVF NS @ 90 ML/HR. WITH BILATERAL SOFT WRIST RESTRAINT ON, CIRCULATION IS WITHIN NORMAL LIMITS. ON PURE WICK DRAINING BY GRAVITY. NOTED WITH YELLOWISH/CLEAR URINE. ALL SAFETY MEASURES IN PLACE. BED IN LOWEST POSITION AND LOCKED. PLACE CALL LIGHT WITH IN REACH. WILL CONTINUE PLAN OF CARE AND ANTICIPATE NEEDS.
[2021-12-13] MEDS: DOCUSATE SODIUM 100 MG CAPSULE PO SCH (09:07)
[2021-12-13] MEDS: BENZTROPINE MESYLATE (1 MG) 1 MG TABLET PO SCH (09:07)
[2021-12-13] MEDS: PROSOURCE / PROSTAT (PYXIS) 30 ML UDC GT SCH (09:07)
[2021-12-13] MEDS: clonazePAM 1 MG TABLET PO SCH ×2 (09:07→12:06)
[2021-12-13] MEDS: CLOTRIMAZOLE 1% 15 GM TUBE TP SCH (09:07)
[2021-12-13] MEDS: FUROSEMIDE 40 MG TABLET PO SCH (09:07)
[2021-12-13] MEDS: LEVETIRACETAM (250 MG) 250 MG TABLET PO SCH (09:07)
[2021-12-13] MEDS: QUETIAPINE FUMARATE 100 MG TABLET PO SCH ×2 (09:07→12:06)
[2021-12-13] MEDS: ZINC SULFATE 220 MG CAPSULE PO SCH (09:07)
[2021-12-13] MEDS: ASCORBIC ACID 500 MG TABLET PO SCH (09:07)
[2021-12-13] MEDS: Magnesium 1GM/D5W 100ML PREMIX 100 ML IV SCH ×2 (09:17→10:57)
[2021-12-13] MEDS ORDERED: POTASSIUM CHLORIDE 20 MEQ POWDER PACKET PO SCH (10:00)
[2021-12-13 10:25] LABS: BASOPHILS % (AUTO) 0.1 % (0.0-2.0); EOSINOPHILS % (AUTO) 4.2 % (0.0-6.0); HEMATOCRIT 37 % (33-45); HEMOGLOBIN 10.6 g/dL (11.5-14.8); LYMPHOCYTES # (AUTO) 1.5 K/uL (0.8-4.8); LYMPHOCYTES % (AUTO) 19.7 % (20.0-44.0); MEAN CORPUSCULAR HGB CONC 28 g/dl (31.0-36.0); MEAN CORPUSCULAR VOLUME 91 fL (82-100); MONOCYTES # (AUTO) 0.9 K/uL (0.1-1.30); PLATELET COUNT (AUTO) 174 K/uL (150-450); RED BLOOD CELL COUNT(AUTO) 4.08 MIL/uL (4.0-5.2); WHITE BLOOD COUNT (AUTO) 7.8 K/uL (4.3-11.0)
[2021-12-13 12:00] VITALS: BP 135/69
[2021-12-13] MEDS ORDERED: VANC750F2 IV (12:39)
[2021-12-13 14:13] LABS: BAND % (MANUAL) 2 % (0.0-5.0); LYMPHOCYTES % (MANUAL) 20 % (16-48); MONOCYTES % (MANUAL) 13 % (0-11.0); NEUTROPHILS % (MANUAL) 65 (42-76)
--- NOTE | 2021-12-13 14:15 | NUR ---
PATIENT HAS BEEN DISCHARGED FROM HOSPITAL. PUREWICK DISCONTINUED. IV ACCESS WILL REMAIN FOR CONTINUED ANTIBIOTIC THERAPY. PATIENT ID BAND REMOVED. HAND OFF REPORT GIVEN TO AMBULANCE CREW. PATIENT LEFT FACILITY IN STABLE CONDITION.
== END 2021-12-13 15:00 | DRG 252 ==
LOC: ER 18:52 → TELE-TD 23:57 → TELE1 12-02 11:26 → MEDSG1 12-03 13:39 → TELE1 12-03 15:05
PROVIDERS: ADMIT Nurse Practitioner Acute Care; ATTEND Nurse Practitioner Family
PROC: 05HA33Z Insertion of Infusion Device into Left Brachial Vein, Percutaneous Approach (ICD-10-PCS; principal; 2021-12-04)
PROC: 05PY03Z Removal of Infusion Device from Upper Vein, Open Approach (ICD-10-PCS; 2021-12-04)
PROC: 0KBJ0ZZ Excision of Left Thorax Muscle, Open Approach (ICD-10-PCS; 2021-12-04)
PROC: 06HY33Z Insertion of Infusion Device into Lower Vein, Percutaneous Approach (ICD-10-PCS; 2021-12-04)
PROC: 0JPT0WZ Removal of Totally Implantable Vascular Access Device from Trunk Subcutaneous Tissue and Fascia, Open Approach (ICD-10-PCS; 2021-12-04)
PROC: 05HC33Z Insertion of Infusion Device into Left Basilic Vein, Percutaneous Approach (ICD-10-PCS; 2021-12-06)
PROC: 05H933Z Insertion of Infusion Device into Right Brachial Vein, Percutaneous Approach (ICD-10-PCS; 2021-12-10)
DX: T80.211A Bloodstream infection due to central venous catheter, initial encounter (principal); A41.01 Sepsis due to Methicillin susceptible Staphylococcus aureus; G93.41 Metabolic encephalopathy; I50.33 Acute on chronic diastolic (congestive) heart failure; E44.0 Moderate protein-calorie malnutrition; D68.59 Other primary thrombophilia; F20.0 Paranoid schizophrenia; I48.20 Chronic atrial fibrillation, unspecified; L03.116 Cellulitis of left lower limb; N17.9 Acute kidney failure, unspecified; L03.115 Cellulitis of right lower limb; N39.0 Urinary tract infection, site not specified; E03.9 Hypothyroidism, unspecified; Z20.822 Contact with and (suspected) exposure to COVID-19; G40.909 Epilepsy, unspecified, not intractable, without status epilepticus; I11.0 Hypertensive heart disease with heart failure; Z86.718 Personal history of other venous thrombosis and embolism; Z95.0 Presence of cardiac pacemaker; E66.01 Morbid (severe) obesity due to excess calories; Z88.0 Allergy status to penicillin; Z88.8 Allergy status to other drugs, medicaments and biological substances; Z91.018 Allergy to other foods; Z79.01 Long term (current) use of anticoagulants; Z79.899 Other long term (current) drug therapy; E78.00 Pure hypercholesterolemia, unspecified; E11.65 Type 2 diabetes mellitus with hyperglycemia; E11.51 Type 2 diabetes mellitus with diabetic peripheral angiopathy without gangrene; E86.1 Hypovolemia; L85.3 Xerosis cutis; L30.9 Dermatitis, unspecified; Z86.79 Personal history of other diseases of the circulatory system; D64.9 Anemia, unspecified; T68.XXXA Hypothermia, initial encounter; M19.90 Unspecified osteoarthritis, unspecified site
CPT/HCPCS: 36415; 36600; 70450-TC; 71045-TC; 80048-TC; 80053-TC; 80076-TC; 80164-TC; 80202-TC; 82140-TC; 82803-TC; 82962-TC; 83735-TC; 83880; 84100-TC; 84484-TC; 85025-TC; 87040-TC; 87070-TC; 87081-TC; 87186-TC; 92526; 92611-TC; 93307-TC; 94799-TC; A6209; C9803; G0378; J0690; J0692; J1644; J1815; J1953; J2060; J2405; J2704; J2765; J3010; J3370; J3475; J3490; J7030; J7050; J7060

== ENCOUNTER 2022-02-20 16:53 | Inpatient (IN) | payer MEDICARE, OTHER ==
[~2022-02-20] VITALS: Ht 167.6 cm; Wt 108.4 kg
[~2022-02-20 16:53] MED LIST changes: +DIVA-78 PO; -DIVA500T2 PO; +VANC750F2 IV
--- NOTE | 2022-02-20 17:00 | NUR ---
PT JOSH VIRGEN FROM [facility] FOR POOR INTAKE. NON SPECIFIED TO HOW LONG. PT IS AWAKE AND ALERT BUT IS NON VERBAL. VSS, PLACED IN MONITOR. AWAITING MD ORDERS.
--- NOTE | 2022-02-20 18:34 | NUR ---
MIDLINE NURSE COMING AT 193
[2022-02-20] MEDS ORDERED: DOCU-141 PO (18:52)
[2022-02-20] MEDS ORDERED: LEVO50TA8 PO (18:52)
[2022-02-20] MEDS ORDERED: ACET-868 PO (18:52)
[2022-02-20] MEDS ORDERED: MAGN400O6 PO (18:52)
[2022-02-20] MEDS ORDERED: BISA10SU11 RC (18:52)
[2022-02-20] MEDS ORDERED: TYL2T PO (18:52)
[2022-02-20] MEDS ORDERED: DIVA250T47 PO (18:52)
[2022-02-20] MEDS ORDERED: NA P133E RC (18:52)
--- NOTE | 2022-02-20 19:29 | NUR ---
COVID SWAB COLLECTED AND SENT TO LAB
--- NOTE | 2022-02-20 19:46 | NUR ---
REPORT GIVEN BY JOEY MARTINEZ. PATIENT IS NON VERBAL BUT RESPONDS TO PAIN. CAME WITH CC OF POOR INTAKE. ATTACHED TO MONITOR. VITALS CHECKED. MIDLINE NURSE AT BEDSIDE INSERTING G18 NEEDLE ON RIGHT UPPER ARM. BLOOD DRAW AND SENT TO LAB
[2022-02-20 20:00] LABS: BASOPHILS % (AUTO) 0.1 % (0.0-2.0); HEMATOCRIT 37 % (33-45); HEMOGLOBIN 11.9 g/dL (11.5-14.8); LYMPHOCYTES % (AUTO) 20.8 % (20.0-44.0); MEAN CORPUSCULAR HGB CONC 32 g/dl (31.0-36.0); MEAN CORPUSCULAR VOLUME 85 fL (82-100); MONOCYTES # (AUTO) 0.5 K/uL (0.1-1.30); MONOCYTES % (AUTO) 10.8 % (2.0-12.0); NEUTROPHILS # (AUTO) 3.2 K/uL (1.8-8.9); NEUTROPHILS % (AUTO) 65.3 % (43.0-81.0); PLATELET COUNT (AUTO) 75 K/uL (150-450); RED BLOOD CELL COUNT(AUTO) 4.34 MIL/uL (4.0-5.2); WHITE BLOOD COUNT (AUTO) 4.9 K/uL (4.3-11.0)
[2022-02-20 20:30] LABS: ALBUMIN 2.6 g/dL (3.4-5.0); BILIRUBIN,DIRECT 0.2 mg/dL (0.0-0.2); BILIRUBIN,TOTAL 0.5 mg/dL (0.2-1.0); CALCIUM, SERUM 10.2 mg/dL (8.5-10.1); CREATININE 1.8 mg/dL (0.6-1.3); POTASSIUM 4.1 mmol/L (3.5-5.1); TOTAL PROTEIN, SERUM 9.6 g/dL (6.4-8.2)
[2022-02-20 20:45] LABS: EOSINOPHILS % (MANUAL) 2 % (0-4); LYMPHOCYTES % (MANUAL) 44 % (16-48); MONOCYTES % (MANUAL) 9 % (0-11.0); NEUTROPHILS % (MANUAL) 45 (42-76)
[2022-02-20] MEDS ORDERED: IV NS 0.9% 500 ML IV ONE (21:00)
--- NOTE | 2022-02-20 21:22 | NUR ---
BROUGHT TO CT DEPT
--- NOTE | 2022-02-20 21:28 | NUR ---
CAME BACK FROM CT
--- NOTE | 2022-02-20 21:50 | NUR ---
REPORT GIVEN TO RN RR.
--- NOTE | 2022-02-20 22:00 | NUR ---
SEED AND FERTILIZER SPECIALIST NOTES RECEIVED PATIENT FROM ER VIA GURNEY ACCOMPANIED BY CASEY. A/0X1, NON VERBAL. BREATHING ON ROOM AIR. NOT IN ANY ACUTE DISTRESS. IV ACCESS AT RIGHT UPPER ARM MIDLINE #18, PATENT AND INTACT. MULTIPLE SKIN ISSUES. CASE REVIEWED. ORIENTED TO ROOM SET-UP. SAFETY MEASURES INITIATED. WILL CONTINUE TO MONITOR.
--- NOTE | 2022-02-20 22:01 | NUR ---
URINE SPECIMEN SENT TO LAB
--- NOTE | 2022-02-20 22:13 | NUR ---
TRANSFERRED TO ROOM
[2022-02-20 22:25] LABS: BILIRUBIN,URINE 1+ (NEGATIVE); COLOR,URINE YELLOW (YELLOW); LEUKOCYTE ESTERASE ,URINE NEGATIVE (NEGATIVE); NITRITE, URINE NEGATIVE (NEGATIVE); PH,URINE 5.5 (5.0-8.0); PROTEIN,URINE 1+ mg/dl (NEGATIVE); UGLUCOSE NEGATIVE (NEGATIVE)
[2022-02-20 23:20] LABS: BACTERIA,URINE Rare /HPF (None Seen); RBC,URINE 0-2 /HPF (0-2); SQUAMOUS EPITHELIAL CELL,UR Few /HPF (None Seen)
[2022-02-20] MEDS ORDERED: ZOLPIDEM TARTRATE 5 MG TABLET PO PRN (23:30)
[2022-02-20] MEDS ORDERED: MAG HYDROX/AL HYDROX/SIMETH 30 ML UDC PO PRN (23:30)
[2022-02-20] MEDS ORDERED: ONDANSETRON HCL/PF 4 MG/2 ML VIAL IVP PRN (23:30)
[2022-02-20] MEDS ORDERED: Z GUARD REMEDY 4 OZ OINT TP PRN (23:30)
[2022-02-20] MEDS ORDERED: ACETAMINOPHEN 325 MG TABLET PO PRN (23:30)
[2022-02-20] MEDS ORDERED: MAGNESIUM HYDROXIDE 30 ML UDC PO PRN (23:30)
[2022-02-20 23:33] VITALS: BP 142/80
[2022-02-21] MEDS ORDERED: MAGNESIUM HYDROXIDE 30 ML UDC PO PRN (01:00)
[2022-02-21] MEDS ORDERED: BISACODYL SUPP (10 MG) 10 MG/SUPP.RECT SUPP.RECT RC PRN (01:00)
[2022-02-21] MEDS ORDERED: ACETAMINOPHEN 325 MG TABLET PO PRN ×2 (01:00)
[2022-02-21] MEDS ORDERED: NA PHOS,M-B/NA PHOS,DI-BA 1 EA ENEMA RC PRN (01:00)
[2022-02-21] MEDS: IV D5/0.45 NACL 1,000 ML IV PRN ×2 (03:20→17:41)
[2022-02-21 06:22] LABS: BASOPHILS % (AUTO) 0.4 % (0.0-2.0); HEMATOCRIT 35 % (33-45); LYMPHOCYTES # (AUTO) 1.1 K/uL (0.8-4.8); LYMPHOCYTES % (AUTO) 23.9 % (20.0-44.0); MEAN CORPUSCULAR HGB CONC 32 g/dl (31.0-36.0); MEAN CORPUSCULAR VOLUME 86 fL (82-100); MONOCYTES # (AUTO) 0.6 K/uL (0.1-1.30); MONOCYTES % (AUTO) 12.7 % (2.0-12.0); NEUTROPHILS # (AUTO) 2.6 K/uL (1.8-8.9); PLATELET COUNT (AUTO) 70 K/uL (150-450); RED BLOOD CELL COUNT(AUTO) 4.03 MIL/uL (4.0-5.2); WHITE BLOOD COUNT (AUTO) 4.4 K/uL (4.3-11.0)
--- NOTE | 2022-02-21 06:23 | NUR ---
RN NOTES THE PATIENT CANNOT SWALLOW LIQUID. PLACED ON NPO. DIET TO RESUME ONCE PASS SWALLOW EVAL. CHARGE NURSE NOTIFIED.
--- NOTE | 2022-02-21 06:36 | NUR ---
RN CLOSING NOTES PATIENT ASLEEP IN BED. SEMI FOWLERS. A/OX1 NON-VERBAL. RESPOND TO VERBAL STIMULI. BREATHING IN ROOM AIR, TOLERATED WELL. IV ACCESS AT RIGHT UPPER ARM #18, PATENT AND INFUSING D5 1/2NS AT 45ML/H. NO SIGNS OF ACUTE DISTRESS NOTED AT THIS TIME. SAFETY MEASURES MAINTAINED. WILL ENDORSE TO NEXT SHIFT RN FOR TREY.
[2022-02-21 06:41] LABS: CALCIUM, SERUM 9.8 mg/dL (8.5-10.1); CREATININE 1.6 mg/dL (0.6-1.3); MAGNESIUM 3.1 mg/dL (1.8-2.4); PHOSPHORUS 4.1 mg/dL (2.5-4.9); POTASSIUM 3.9 mmol/L (3.5-5.1)
[2022-02-21 06:52] LABS: THYROID STIMULATING HORMONE 10.845 uIU/mL (0.358-3.74)
--- NOTE | 2022-02-21 07:25 | NUR ---
MS RN OPENING NOTE RECEIVED PT AWAKE AND RESTING IN BED. PT IS A/O X1, NON VERBAL. REORIENTED PT NEEDED. ON ROOM AIR, TOLERATING WELL. NO SOB NOTED. NOT IN ANY SIGN OF RESPIRATORY DISTRESS. IV ACCESS ON GRIFF[place] MIDLINE INTACT AND PATENT WITH D5 1/2 NS INFUSING AT 45ML/HR. PER ENVIRONMENTAL COMPLIANCE OFFICER NURSE PT DID NOT PASS THE NURSING SWALLOW EVAL AND IS CURRENTLY NPO AND THAT MD AWARE. AWAITING FOR ST EVAL FOR SWALLOW EVAL. SAFETY MEASURES IN PLACE: BED IN LOWEST AND LOCKED POSITION, SIDE RAILS UP X2, AND CALL LIGHT WITHIN REACH. WILL CONTINUE TO MONITOR PT.
[2022-02-21] MEDS: LEVOTHYROXINE SODIUM 50 MCG TABLET PO SCH (07:30)
[2022-02-21] MEDS: PANTOPRAZOLE 40 MG TABLET.DR PO SCH (07:30)
[2022-02-21 08:00] VITALS: BP 119/72
--- NOTE | 2022-02-21 08:25 | NUR ---
RN NOTE CALLED DR. MARIANNA ENRIQUE AND MADE HIM AWARE THAT PT FAILED THE NURSING SWALLOW EVAL. PER MD TO PLACE PT NPO UNTIL SWALLOW EVAL BY ST. ORDERS CARRIED OUT.
[2022-02-21] MEDS: ASCORBIC ACID 500 MG TABLET PO SCH (09:00)
[2022-02-21] MEDS: DIVALPROEX SODIUM 250 MG TABLET.DR PO SCH ×4 (09:00→20:21)
[2022-02-21] MEDS: LEVETIRACETAM (250 MG) 250 MG TABLET PO SCH ×2 (09:00→17:00)
[2022-02-21] MEDS: DOCUSATE SODIUM 100 MG CAPSULE PO SCH ×2 (09:00→17:00)
[2022-02-21] MEDS: clonazePAM 1 MG TABLET PO SCH ×2 (09:00→17:00)
[2022-02-21] MEDS: BISACODYL (5 MG) 5 MG TABLET.DR PO SCH (09:00)
[2022-02-21] MEDS: RIVAROXABAN 10 MG TABLET PO SCH (09:00)
--- NOTE | 2022-02-21 09:17 | NUR ---
WOUND CARE CONSULT: PT PRESENTS WITH SOME CRUSTING OF LEFT LOWER LEG, BILATERAL LOWER LEG/FEET REDNESS WITH EDEMA, LEFT POSTERIOR THIGH MOISTURE ASSOCIATED OPEN SKIN AND DISCOLORATION TO BACK AND BUTTOCKS, PRESENT ON ADMISSION. DISCUSSED SKIN PROTECTION WITH NURSING STAFF.PT IS INCONTINENT. DPM CONSULT CALLED TO DR MARAL MD IN AGREEMENT WITH PLAN OF CARE.
[2022-02-21 15:57] VITALS: BP 128/56
[2022-02-21 17:24] LABS: EOSINOPHILS % (MANUAL) 1 % (0-4); LYMPHOCYTES % (MANUAL) 26 % (16-48); MONOCYTES % (MANUAL) 12 % (0-11.0); NEUTROPHILS % (MANUAL) 61 (42-76)
--- NOTE | 2022-02-21 19:19 | NUR ---
MS RN CLOSING NOTE PT AWAKE AND RESTING IN BED. PT IS A/O X1, REORIENTED PT NEEDED. ON ROOM AIR, TOLERATING WELL. NO SOB NOTED. NOT IN ANY SIGN OF RESPIRATORY DISTRESS. IV ACCESS ON [place] MIDLINE G#18 INTACT AND PATENT WITH D5 1/2 NS INFUSING AT 45ML/HR. ALL NEEDS ATTENDED. KEPT CLEAN AND COMFORTABLE AT ALL TIMES. TURNED AND REPOSITIONED Q2HRS AND NEEDED. SAFETY MEASURES IN PLACE: BED IN LOWEST AND LOCKED POSITION, SIDE RAILS UP X3, BED ALARM ON, AND CALL LIGHT WITHIN REACH. ENDORSED TO SENIOR NET DEVELOPER NURSE FOR TREY.
--- NOTE | 2022-02-21 19:30 | NUR ---
MS RN OPENING NOTE RECEIVED PATIENT IN BED WITH HOB ELEVATED, WITH EYES CLOSED. AFEBRILE AND NOT IN ANY FORM OF ACUTE DISTRESS. BREATHING EVEN AND NON LABORED. NO C/O PAIN OR DISCOMFORT AT THIS TIME. LUNG SOUNDS CLEAR ON AUSCULTATION. WITH IV ACCESS ON L UA MIDLINE 18G RUNNING WITH D5 1/2NS AT 45ML/HR. SAFETY MEASURES IN PLACE. KEPT BED IN LOCKED AND IN LOW POSITION. SIDE RAILS UP X2. CALL LIGHT WITHIN EASY REACH.
[2022-02-21 20:00] VITALS: BP 116/68
--- NOTE | 2022-02-21 20:22 | NUR ---
MS RN NOTE PATIENT UNABLE TO TOLERATE ORAL INTAKE INCLUDING MEDICATION PER REPORT AND IS CURRENTLY ON NPO HENCE MEDICATION WAS NOT GIVEN.
--- NOTE | 2022-02-22 06:30 | NUR ---
MS RN CLOSING NOTE PATIENT IN BED WITH HOB ELEVATED, ASLEEP BUT EASY TO AROUSE AND RESPONDS TO VERBAL AND TACTILE STIMULI. AFEBRILE AND NOT IN ANY FORM OF ACUTE DISTRESS. BREATHING EVEN AND NON LABORED. NO C/O PAIN OR DISCOMFORT THROUGHOUT THE SHIFT. LUNG SOUNDS CLEAR ON AUSCULTATION. WITH IV ACCESS ON L UA MIDLINE 18G RUNNING WITH D5 1/2NS AT 45ML/HR. MAINTAINED ON NPO ORDERED. SAFETY MEASURES IN PLACE. KEPT BED IN LOCKED AND IN LOW POSITION. SIDE RAILS UP X2. CALL LIGHT WITHIN EASY REACH. ALL NURSING NEEDS ATTENDED. ENDORSED TO INCOMING SHIFT FOR CONTINUITY OF CARE.
--- NOTE | 2022-02-22 07:30 | NUR ---
RN OPENING NOTE- RECEIVED PATIENT IN BED WITH HOB ELEVATED. BREATHING EVEN AND NON LABORED. NO C/O PAIN OR DISCOMFORT AT THIS TIME. LUNG SOUNDS DIMINISHED ON AUSCULTATION. WITH IV ACCESS ON L UA MIDLINE 18G RUNNING WITH D5 1/2NS AT 45ML/HR. SAFETY MEASURES IN PLACE. KEPT BED IN LOCKED AND IN LOW POSITION. SIDE RAILS UP X2. CALL LIGHT WITHIN EASY REACH. MONITOR/ASSIST.
[2022-02-22 08:15] VITALS: BP 144/56
[2022-02-22 08:46] LABS: BASOPHILS % (AUTO) 0.1 % (0.0-2.0); EOSINOPHILS % (AUTO) 1.9 % (0.0-6.0); HEMATOCRIT 34 % (33-45); HEMOGLOBIN 10.5 g/dL (11.5-14.8); LYMPHOCYTES # (AUTO) 0.8 K/uL (0.8-4.8); LYMPHOCYTES % (AUTO) 13.8 % (20.0-44.0); MEAN CORPUSCULAR HGB CONC 31 g/dl (31.0-36.0); MEAN CORPUSCULAR VOLUME 86 fL (82-100); MONOCYTES # (AUTO) 0.6 K/uL (0.1-1.30); MONOCYTES % (AUTO) 10.6 % (2.0-12.0); NEUTROPHILS # (AUTO) 4.3 K/uL (1.8-8.9); NEUTROPHILS % (AUTO) 73.6 % (43.0-81.0); PLATELET COUNT (AUTO) 67 K/uL (150-450); RED BLOOD CELL COUNT(AUTO) 3.93 MIL/uL (4.0-5.2); WHITE BLOOD COUNT (AUTO) 5.8 K/uL (4.3-11.0)
[2022-02-22] MEDS: clonazePAM 1 MG TABLET PO SCH ×2 (08:48→16:31)
[2022-02-22] MEDS: RIVAROXABAN 10 MG TABLET PO SCH (08:52)
[2022-02-22] MEDS: ASCORBIC ACID 500 MG TABLET PO SCH (08:53)
[2022-02-22] MEDS: LEVETIRACETAM (250 MG) 250 MG TABLET PO SCH ×2 (08:57→16:31)
[2022-02-22] MEDS: LEVOTHYROXINE SODIUM 50 MCG TABLET PO SCH (08:58)
[2022-02-22] MEDS: DOCUSATE SODIUM 100 MG CAPSULE PO SCH ×2 (08:58→16:31)
[2022-02-22] MEDS: DIVALPROEX SODIUM 250 MG TABLET.DR PO SCH ×4 (08:58→20:29)
[2022-02-22] MEDS: PANTOPRAZOLE 40 MG TABLET.DR PO SCH (09:03)
--- NOTE | 2022-02-22 09:25 | NUR ---
RN NOTE- ATTEMPTED TO ADMINISTER RX. SWALLOW SEEMED OK. PT STARTED COUGHING. MED PASS STOPPED. WILL AWAIT SWALLOW EVAL. MD TO BE NOTIFIED. CXR AT MD DISCRETION.
[2022-02-22 09:43] LABS: ALBUMIN 2.1 g/dL (3.4-5.0); BILIRUBIN,TOTAL 0.7 mg/dL (0.2-1.0); CALCIUM, SERUM 9.7 mg/dL (8.5-10.1); CREATININE 1.5 mg/dL (0.6-1.3); PHOSPHORUS 3.3 mg/dL (2.5-4.9); POTASSIUM 3.7 mmol/L (3.5-5.1); TOTAL PROTEIN, SERUM 8.2 g/dL (6.4-8.2)
[2022-02-22] MEDS: IV D5/0.45 NACL 1,000 ML IV PRN (12:31)
[2022-02-22 15:59] VITALS: BP 103/65
--- NOTE | 2022-02-22 16:32 | NUR ---
RN NOTE- ASPIRATION RISK. NO PO RX ADMINISTERED. MD AWARE
--- NOTE | 2022-02-22 18:40 | NUR ---
RN CLOSING NOTE- UNCHANGED, PATIENT IN BED WITH HOB ELEVATED. BREATHING EVEN AND NON LABORED. NO C/O PAIN OR DISCOMFORT AT THIS TIME. LUNG SOUNDS DIMINISHED ON AUSCULTATION. WITH IV ACCESS ON L UA MIDLINE 18G RUNNING WITH D5 1/2NS AT 45ML/HR. SAFETY MEASURES IN PLACE. PUREWICK REMOVING UA, ST TO ASSESS TOMORROW. KEPT BED IN LOCKED AND IN LOW POSITION. SIDE RAILS UP X2. CALL LIGHT WITHIN EASY REACH. MONITOR/ASSIST.
[2022-02-22 18:42] LABS: BAND % (MANUAL) 2 % (0.0-5.0); LYMPHOCYTES % (MANUAL) 27 % (16-48); MONOCYTES % (MANUAL) 1 % (0-11.0); NEUTROPHILS % (MANUAL) 70 (42-76)
--- NOTE | 2022-02-22 19:30 | NUR ---
MS RN OPENING NOTE RECEIVED PATIENT IN BED WITH HOB ELEVATED, WITH EYES CLOSED BUT RESPONDS TO VERBAL AND TACTILE STIMULI. AFEBRILE AND NOT IN ANY FORM OF ACUTE DISTRESS. BREATHING EVEN AND NON LABORED. NO C/O PAIN OR DISCOMFORT AT THIS TIME. LUNG SOUNDS CLEAR ON AUSCULTATION. WITH IV ACCESS ON L UA MIDLINE 18G RUNNING WITH D5 1/2NS AT 60ML/HR. MAINTAINED ON NPO D/T HIGH RISK OF ASPIRATION. SAFETY MEASURES IN PLACE. KEPT BED IN LOCKED AND IN LOW POSITION. SIDE RAILS UP X2. CALL LIGHT WITHIN EASY REACH.
[2022-02-22 20:00] VITALS: BP 113/53
--- NOTE | 2022-02-22 20:29 | NUR ---
MS RN NOTE PATIENT REMAINS ON NPO AND STILL HAVING DIFFICULTY OF SWALLOWING. MEDICATION HELD ADVISED. MD AWARE ABOUT THE SITUATION.
[2022-02-23] MEDS: IV D5/0.45 NACL 1,000 ML IV PRN (06:24)
--- NOTE | 2022-02-23 06:30 | NUR ---
MS RN CLOSING NOTE PATIENT IN BED WITH HOB ELEVATED, ASLEEP BUT EASY TO AROUSE AND RESPONDS TO VERBAL AND TACTILE STIMULI. AFEBRILE AND NOT IN ANY FORM OF ACUTE DISTRESS. BREATHING EVEN AND NON LABORED. LUNG SOUNDS CLEAR ON AUSCULTATION. WITH IV ACCESS ON L UA MIDLINE 18G RUNNING WITH D5 1/2NS AT 60ML/HR, INFUSING WELL. MAINTAINED ON NPO ORDERED. STILL UNABLE TO TAKE OR TOLERATE ORAL INTAKE INCLUDING MEDICATION. SAFETY MEASURES IN PLACE. KEPT BED IN LOCKED AND IN LOW POSITION. SIDE RAILS UP X2. CALL LIGHT WITHIN EASY REACH. ALL NURSING NEEDS ATTENDED. ENDORSED TO INCOMING SHIFT FOR CONTINUITY OF CARE.
--- NOTE | 2022-02-23 07:15 | NUR ---
ms rn received on bed, sleeping,non verbal, patient,no s/s of pain at this time.came in w/ bilateral pleural effusions,repositioned for comfort,all needs attended.
[2022-02-23] MEDS: LEVOTHYROXINE SODIUM 50 MCG TABLET PO SCH (07:30)
[2022-02-23] MEDS: PANTOPRAZOLE 40 MG TABLET.DR PO SCH (07:30)
--- NOTE | 2022-02-23 08:50 | NUR ---
ms rn speech therapist came to evaluate patient, cannot test her because ,she is so lethargic,all needs attended.
[2022-02-23] MEDS: DIVALPROEX SODIUM 250 MG TABLET.DR PO SCH ×4 (09:00→20:48)
[2022-02-23] MEDS: BISACODYL (5 MG) 5 MG TABLET.DR PO SCH (09:00)
[2022-02-23] MEDS: LEVETIRACETAM (250 MG) 250 MG TABLET PO SCH ×2 (09:00→17:00)
[2022-02-23] MEDS: DOCUSATE SODIUM 100 MG CAPSULE PO SCH ×2 (09:00→17:00)
[2022-02-23] MEDS: clonazePAM 1 MG TABLET PO SCH ×2 (09:00→17:00)
[2022-02-23] MEDS: ASCORBIC ACID 500 MG TABLET PO SCH (09:00)
[2022-02-23] MEDS: RIVAROXABAN 10 MG TABLET PO SCH (09:00)
[2022-02-23 09:02] VITALS: BP 108/60
[2022-02-23 10:10] LABS: CALCIUM, SERUM 9.5 mg/dL (8.5-10.1); CREATININE 1.5 mg/dL (0.6-1.3); POTASSIUM 5.4 mmol/L (3.5-5.1)
--- NOTE | 2022-02-23 12:50 | NUR ---
MS RN PATIENT FOUND SITTING ON THE FLOOR, ASSESSMENT DONE NO BRUISES,NO SKIN TEAR, PATIENT NOT IN PAIN,VITALS STABLE. TEXTED DR. CABRAL FOR BILATERAL HIP XRAY.WILL MONITOR PATIENT
[2022-02-23 16:17] VITALS: BP 98/56
--- NOTE | 2022-02-23 17:40 | NUR ---
MS RN PATIENT ON BED, NO DISTRESS NOTED,ALL NEEDS ATTENDED.
--- NOTE | 2022-02-23 17:41 | NUR ---
MS RN' TXTED DR. SEVERINO FOR KAYEXALATE ORDER, WANTS IT VIA RECTAL FORM.
[2022-02-23] MEDS ORDERED: SODIUM POLYSTYRENE SULF. PWD 15 GM UDC PO ONE (18:00)
--- NOTE | 2022-02-23 19:34 | NUR ---
MS RN OPENING NOTE RECEIVED PT AWAKE IN BED. A/O X0 AND VERBAL. PT STABLE ON ROOM AIR. NO SOB OR S/S OF RESPIRATORY DISTRESS. BREATHING EVEN AND UNLABORED. IV ACCESS [place] MIDLINE RUNNING D5 1/2 NS @ 60 ML/HR, INTACT AND PATENT. SAFETY PRECAUTIONS IN PLACE. BED IN LOWEST LOCKED POSITION, HOB ELEVATED, SIDE RAILS UP X3, AND CALL LIGHT AND TABLE WITHIN REACH. ALL NEEDS MET AT THIS TIME.
[2022-02-23 20:00] VITALS: BP 90/60
[2022-02-23 23:57] VITALS: BP 116/72
--- NOTE | 2022-02-24 01:20 | NUR ---
RN NOTE INFORMED ANITHA HARDY THAT PT IS NPO AND HAS NOT BEEN RECEIVING KEPPRA. PER ANITHA HARDY, NEW ORDER IS TO SWITCH CURRENT ORDER FROM PO TO IV. NOTED AND CARRIED OUT. CHARGE NURSE TRINH ROBERTS.
--- NOTE | 2022-02-24 07:00 | NUR ---
MS RN CLOSING NOTE PT AWAKE IN BED. A/O X1 AND VERBAL. PT STABLE ON ROOM AIR. NO SOB OR S/S OF RESPIRATORY DISTRESS. BREATHING EVEN AND UNLABORED. IV ACCESS WAS DISLODGED, ATTEMPTED PIV INSERTION WITH NO SUCCESS. MIDLINE REINSERTION SCHEDULED AN HOUR FROM NOW PER MECHANICAL CAD DESIGNER VENITA, WILL ENDORSE. WOUND CARE DONE ORDERED. SAFETY PRECAUTIONS IN PLACE AT ALL TIMES. BED IN LOWEST LOCKED POSITION, HOB ELEVATED, SIDE RAILS UP X3, AND CALL LIGHT AND TABLE WITHIN REACH. ALL NEEDS MET AT THIS TIME AND WILL ENDORSE TO ONCOMING NURSE FOR TREY.
[2022-02-24] MEDS: PANTOPRAZOLE 40 MG TABLET.DR PO SCH (07:30)
[2022-02-24] MEDS: LEVOTHYROXINE SODIUM 50 MCG TABLET PO SCH (07:30)
--- NOTE | 2022-02-24 07:30 | NUR ---
RN MS NOTES PT IN BED, AWAKE, ALERT TO SELF, REFUSING VITAL SIGNS CHECK, CALL LIGHT WITHIN REACH, NO SIGN OF PAIN OR DISTRESS, NEEDS ATTENDED.
[2022-02-24] MEDS: IV D5/0.45 NACL 1,000 ML IV PRN (08:54)
[2022-02-24] MEDS: LEVETIRACETAM (500MG) 1,500 MG in IV NS 0.9% 100 ML IV SCH ×2 (08:55→20:57)
[2022-02-24] MEDS: DIVALPROEX SODIUM 250 MG TABLET.DR PO SCH ×4 (09:00→20:57)
[2022-02-24] MEDS: ASCORBIC ACID 500 MG TABLET PO SCH (09:00)
[2022-02-24] MEDS: clonazePAM 1 MG TABLET PO SCH ×2 (09:00→17:00)
[2022-02-24] MEDS: RIVAROXABAN 10 MG TABLET PO SCH (09:00)
[2022-02-24] MEDS: DOCUSATE SODIUM 100 MG CAPSULE PO SCH ×2 (09:00→17:00)
[2022-02-24 14:44] LABS: BASOPHILS % (AUTO) 0.2 % (0.0-2.0); EOSINOPHILS % (AUTO) 0.6 % (0.0-6.0); HEMATOCRIT 35 % (33-45); HEMOGLOBIN 10.6 g/dL (11.5-14.8); LYMPHOCYTES # (AUTO) 0.5 K/uL (0.8-4.8); LYMPHOCYTES % (AUTO) 7.6 % (20.0-44.0); MEAN CORPUSCULAR HGB CONC 31 g/dl (31.0-36.0); MEAN CORPUSCULAR VOLUME 88 fL (82-100); MONOCYTES # (AUTO) 0.4 K/uL (0.1-1.30); MONOCYTES % (AUTO) 5.7 % (2.0-12.0); NEUTROPHILS # (AUTO) 5.9 K/uL (1.8-8.9); NEUTROPHILS % (AUTO) 85.9 % (43.0-81.0); RED BLOOD CELL COUNT(AUTO) 3.94 MIL/uL (4.0-5.2); WHITE BLOOD COUNT (AUTO) 6.9 K/uL (4.3-11.0)
[2022-02-24 14:59] LABS: ALBUMIN 1.7 g/dL (3.4-5.0); BILIRUBIN,TOTAL 0.7 mg/dL (0.2-1.0); CALCIUM, SERUM 9.6 mg/dL (8.5-10.1); CREATININE 1.5 mg/dL (0.6-1.3); MAGNESIUM 2.8 mg/dL (1.8-2.4); PHOSPHORUS 3.2 mg/dL (2.5-4.9); POTASSIUM 3.3 mmol/L (3.5-5.1); TOTAL PROTEIN, SERUM 7.7 g/dL (6.4-8.2)
--- NOTE | 2022-02-24 15:19 | NUR ---
RN MS NOTES RECEIVED CRITICAL LAB RESULT, PLATELET 44, NO BLEEDING NOTED, DR. CABRAL INFORMED, NO NEW ORDER GIVEN. ALSO RECEIVED ORDER FOR POTASSIUM REPLACEMENT OF 20 MEQ IV, NOTED AND CARRIED OUT.
[2022-02-24 15:20] LABS: PLATELET COUNT (AUTO) 44 K/uL (150-450)
[2022-02-24] MEDS: POTASSIUM CL. PREMIX PERIPHER. 50 ML IV SCH ×2 (15:55→17:17)
[2022-02-24 16:00] VITALS: BP 103/51
--- NOTE | 2022-02-24 18:37 | NUR ---
RN MS NOTES PT IN BED, AWAKE, ALERT TO SELF, NO SIGN OF PAIN OR DISTRESS, CALL LIGHT WITHIN REACH, IV FLUIDS INFUSING WELL, ON PUREWICK, REPOSITIONED FOR COMFORT, BED ALARM ON AT ALL TIMES, KEPT NPO, PM CARE DONE.
--- NOTE | 2022-02-24 19:30 | NUR ---
MS RN OPENING NOTE RECEIVED PATIENT IN BED, AWAKE, ALERT AND ORIENTED TO SELF. AFEBRILE AND NOT IN ANY FORM OF ACUTE DISTRESS. BREATHING EVEN AND NON LABORED. NO C/O PAIN OR DISCOMFORT. WITH IV ACCESS ON GRIFFIN MIDLINE 18G RUNNING WITH D5 1/2 NS AT 60ML/HR. MAINTAINED ON NPO D/T HIGH RISK FOR ASPIRATION. SAFETY MEASURES IN PLACE. KEPT BED IN LOCKED AND IN LOW POSITION. SIDE RAILS UP X3. BED ALAR, ON. CALL LIGHT WITHIN EASY REACH.
[2022-02-24 20:00] VITALS: BP 134/79
[2022-02-24] MEDS: MUPIROCIN OINT 2% 22 GM TUBE NS SCH (20:58)
[2022-02-24 22:06] LABS: BAND % (MANUAL) 9 % (0.0-5.0); LYMPHOCYTES % (MANUAL) 12 % (16-48); MONOCYTES % (MANUAL) 6 % (0-11.0); NEUTROPHILS % (MANUAL) 73 (42-76)
[2022-02-25] MEDS: IV D5/0.45 NACL 1,000 ML IV PRN (05:00)
--- NOTE | 2022-02-25 06:30 | NUR ---
MS RN CLOSING NOTE PATIENT IN BED, ASLEEP BUT EASY TO AROUSE AND RESPONDS TO VERBAL AND TACTILE STIMULI. AFEBRILE AND NOT IN ANY FORM OF ACUTE DISTRESS. BREATHING EVEN AND NON LABORED. NO C/O PAIN OR DISCOMFORT THROUGHOUT THE SHFT. WITH IV ACCESS ON GRIFFIN MIDLINE 18G RUNNING WITH D5 1/2 NS AT 60ML/HR. MEDICATED ORDERED. MAINTAINED ON NPO D/T HIGH RISK FOR ASPIRATION. SAFETY MEASURES IN PLACE. KEPT BED IN LOCKED AND IN LOW POSITION. SIDE RAILS UP X3. BED ALAR, ON. CALL LIGHT WITHIN EASY REACH. ENDORSED TO INCOMING SHIFT FOR CONTINUITY OF CARE.
[2022-02-25 06:46] LABS: HEMATOCRIT 34 % (33-45); HEMOGLOBIN 10.5 g/dL (11.5-14.8); LYMPHOCYTES # (AUTO) 0.6 K/uL (0.8-4.8); LYMPHOCYTES % (AUTO) 8.1 % (20.0-44.0); MEAN CORPUSCULAR HGB CONC 31 g/dl (31.0-36.0); MEAN CORPUSCULAR VOLUME 87 fL (82-100); MONOCYTES # (AUTO) 0.3 K/uL (0.1-1.30); MONOCYTES % (AUTO) 4.8 % (2.0-12.0); NEUTROPHILS # (AUTO) 6.1 K/uL (1.8-8.9); NEUTROPHILS % (AUTO) 86.1 % (43.0-81.0); WHITE BLOOD COUNT (AUTO) 7.1 K/uL (4.3-11.0)
[2022-02-25 07:02] LABS: PLATELET COUNT (AUTO) 45 K/uL (150-450)
[2022-02-25 07:06] LABS: ALBUMIN 1.7 g/dL (3.4-5.0); BILIRUBIN,TOTAL 0.6 mg/dL (0.2-1.0); CALCIUM, SERUM 9.8 mg/dL (8.5-10.1); CREATININE 1.4 mg/dL (0.6-1.3); MAGNESIUM 2.7 mg/dL (1.8-2.4); PHOSPHORUS 2.9 mg/dL (2.5-4.9); POTASSIUM 3.5 mmol/L (3.5-5.1); TOTAL PROTEIN, SERUM 7.4 g/dL (6.4-8.2)
--- NOTE | 2022-02-25 07:25 | NUR ---
MS RN NOTE RECEIVED A CALL FROM LAB C/O CRYSTAL AND REPORTED THAT PLATELET WAS CRITICALLY LOW AT 45.YESTERDAY'S PLATELET WAS ALSO CRITICALLY LOW AT 44. SYSTEMS TEST ANALYST ANITHA HARDY NOTIFIED WITH NO NEW ORDER MADE. ENDORSED TO INCOMING SHIFT FOR CONTINUITY OF CARE.
[2022-02-25] MEDS: PANTOPRAZOLE 40 MG TABLET.DR PO SCH ×2 (07:30→08:08)
[2022-02-25] MEDS: LEVOTHYROXINE SODIUM 50 MCG TABLET PO SCH ×2 (07:30→08:08)
--- NOTE | 2022-02-25 07:45 | NUR ---
MS RN OPENING NOTE RECEIVED PATIENT IN BED, ASLEEP BUT AROUSABLE , ALERT AND ORIENTED TO SELF. AFEBRILE AND NO SOB OR DISTRESS NOTED . BREATHING EVEN AND NON LABORED. NO C/O PAIN OR DISCOMFORT. WITH IV ACCESS ON GRIFFIN MIDLINE 18G RUNNING WITH D5 1/2 NS AT 60ML/HR. MAINTAINED ON NPO D/T HIGH RISK FOR ASPIRATION. SAFETY MEASURES IN PLACE. KEPT BED IN LOCKED AND IN LOW POSITION. SIDE RAILS UP X3. BED ALAR, ON. CALL LIGHT WITHIN EASY REACH. WILL MONITOR FOR ANY CHANGES
[2022-02-25 08:00] VITALS: BP 90/46
[2022-02-25] MEDS: LEVETIRACETAM (500MG) 1,500 MG in IV NS 0.9% 100 ML IV SCH ×2 (08:20→19:55)
[2022-02-25] MEDS: RIVAROXABAN 10 MG TABLET PO SCH (09:00)
[2022-02-25] MEDS: DIVALPROEX SODIUM 250 MG TABLET.DR PO SCH ×4 (09:00→20:03)
[2022-02-25] MEDS: ASCORBIC ACID 500 MG TABLET PO SCH (09:00)
[2022-02-25] MEDS: DOCUSATE SODIUM 100 MG CAPSULE PO SCH ×2 (09:00→17:00)
[2022-02-25] MEDS: clonazePAM 1 MG TABLET PO SCH ×2 (09:00→17:00)
[2022-02-25] MEDS: BISACODYL (5 MG) 5 MG TABLET.DR PO SCH (09:00)
[2022-02-25] MEDS: MUPIROCIN OINT 2% 22 GM TUBE NS SCH ×2 (10:21→20:02)
[2022-02-25] MEDS: IV D5W 1,000 ML IV SCH (15:40)
[2022-02-25 16:00] VITALS: BP 95/47
--- NOTE | 2022-02-25 18:56 | NUR ---
MS RN CLOSING NOTE PATIENT IN BED, AWAKE , , ALERT AND ORIENTED TO SELF. AFEBRILE AND NO SOB OR DISTRESS NOTED . BREATHING EVEN AND NON LABORED. NO C/O PAIN OR DISCOMFORT. WITH IV ACCESS ON GRIFFIN MIDLINE 18G RUNNING WITH D5 WATER AT 60ML/HR. MAINTAINED ON NPO D/T HIGH RISK FOR ASPIRATION. WITH PURE WICK ON , PLAN IS TO INSERT PEG AND BROTHER AGREED , WITH ORDER TO FOR CONSENT FOR PEG INSERTION AND BROTHER ESTELA OLIVARESARNEY AGREED AND GAVE CONSENT VIA PHONE AND WITNESSED WITH TWO RN AD VERIFIED WITH MD , PATIENTS BROTHER EMPHASIZED THAT IF PATIENT GONNA HAVE BLOOD TRANSFUSION DURING THE PROCEDURE ONLY BLOOD THAT DIDNT RECEIVE VACCINE ,WILL ENDORSED TO INCOMING NURSE SAFETY MEASURES IN PLACE. KEPT BED IN LOCKED AND IN LOW POSITION. SIDE RAILS UP X3. BED ALAR, ON. CALL LIGHT WITHIN EASY REACH. WILL ENDORSED TO NEXT SHIFT
--- NOTE | 2022-02-25 19:30 | NUR ---
MS RN OPENING NOTE RECEIVED PATIENT IN BED, AWAKE, ALERT AND ORIENTED TO SELF. AFEBRILE AND NOT IN ANY FORM OF ACUTE DISTRESS. BREATHING EVEN AND NON LABORED. WITH IV ACCESS ON GRIFFIN MIDLINE 18G RUNNING WITH D5W AT 100ML/HR. MAINTAINED ON NPO D/T HIGH RISK FOR ASPIRATION. SAFETY MEASURES IN PLACE. KEPT BED IN LOCKED AND IN LOW POSITION. SIDE RAILS UP X3. BED ALAR, ON. CALL LIGHT WITHIN EASY REACH.
[2022-02-25 20:00] VITALS: BP 87/51
[2022-02-25 22:42] LABS: BAND % (MANUAL) 8 % (0.0-5.0); LYMPHOCYTES % (MANUAL) 9 % (16-48); METAMYELOCYTES % 1 % (0-0); MONOCYTES % (MANUAL) 5 % (0-11.0); NEUTROPHILS % (MANUAL) 77 (42-76)
[2022-02-26] MEDS: IV D5W 1,000 ML IV SCH ×3 (01:40→21:40)
[2022-02-26] MEDS: LORAZEPAM INJ 2 MG/ML VIAL IV PRN ×2 (06:12→18:49)
--- NOTE | 2022-02-26 06:20 | NUR ---
MS RN NOTE PATIENT NOTED WITH AGITATION AND WAS TRYING TO GET OUT OF BED DESPITE REDIRECTING. DR. SHIRLEY NOTIFIED WITH NEW ORDER MADE, NOTED AND CARRIED OUT.
--- NOTE | 2022-02-26 06:30 | NUR ---
MS RN CLOSING NOTE PATIENT IN BED, ASLEEP BUT EASY TO AROUSE AND RESPONDS TO VERBAL AND TACTILE STIMULI. AFEBRILE AND NOT IN ANY FORM OF ACUTE DISTRESS. BREATHING EVEN AND NON LABORED. NO C/O PAIN OR DISCOMFORT THROUGHOUT THE SHIFT. WITH IV ACCESS ON GRIFFIN MIDLINE 18G INFUSING WITH D5W AT 100ML/HR. DUE MEDS GIVEN. MAINTAINED ON NPO D/T HIGH RISK FOR ASPIRATION. SAFETY MEASURES IN PLACE. KEPT BED IN LOCKED AND IN LOW POSITION. SIDE RAILS UP X3. BED ALAR, ON. CALL LIGHT WITHIN EASY REACH. ENDORSED TO INCOMING SHIFT FOR CONTINUITY OF CARE.
[2022-02-26 07:14] LABS: EOSINOPHILS % (AUTO) 1.3 % (0.0-6.0); HEMATOCRIT 33 % (33-45); HEMOGLOBIN 10.3 g/dL (11.5-14.8); LYMPHOCYTES # (AUTO) 0.8 K/uL (0.8-4.8); LYMPHOCYTES % (AUTO) 9.6 % (20.0-44.0); MEAN CORPUSCULAR HGB CONC 31 g/dl (31.0-36.0); MEAN CORPUSCULAR VOLUME 87 fL (82-100); MONOCYTES # (AUTO) 0.4 K/uL (0.1-1.30); MONOCYTES % (AUTO) 4.5 % (2.0-12.0); NEUTROPHILS # (AUTO) 6.9 K/uL (1.8-8.9); NEUTROPHILS % (AUTO) 84.6 % (43.0-81.0); RED BLOOD CELL COUNT(AUTO) 3.84 MIL/uL (4.0-5.2); WHITE BLOOD COUNT (AUTO) 8.2 K/uL (4.3-11.0)
--- NOTE | 2022-02-26 07:20 | NUR ---
RN OPENING NOTE RECEIVED PATIENT IN BED, ASLEEP, EASILY AROUSED. ORIENTD TO SELF. NOT IN ANY FORM OF ACUTE DISTRESS. ON ROOM AIR, TOLERATING WELL, BREATHING EVEN AND UNLABORED. NOTED WITH IV ACCESS ON RIGHT UPPER ARM MIDLINE #18G RUNNING WITH D5W AT 100ML/HR. PATIENT MAINTAINED ON NPO D/T HIGH RISK FOR ASPIRATION AND SCHEDULED FOR PEG PLACEMENT. SAFETY MEASURES IN PLACE. BED IN LOCKED AND IN LOWEST POSITION. SIDE RAILS UP X3. BED ALARM ON. CALL LIGHT WITHIN EASY REACH. WILL CONTINUE TO MONITOR PATIENT.
[2022-02-26 07:23] LABS: PLATELET COUNT (AUTO) 44 K/uL (150-450)
[2022-02-26] MEDS: PANTOPRAZOLE 40 MG TABLET.DR PO SCH (07:30)
[2022-02-26] MEDS: LEVOTHYROXINE SODIUM 50 MCG TABLET PO SCH (07:30)
[2022-02-26 07:35] LABS: ALBUMIN 1.6 g/dL (3.4-5.0); CALCIUM, SERUM 9.6 mg/dL (8.5-10.1); CREATININE 1.6 mg/dL (0.6-1.3); MAGNESIUM 2.5 mg/dL (1.8-2.4); POTASSIUM 3.6 mmol/L (3.5-5.1)
[2022-02-26] MEDS: LEVETIRACETAM (500MG) 1,500 MG in IV NS 0.9% 100 ML IV SCH ×2 (07:43→21:20)
[2022-02-26 08:25] LABS: BILIRUBIN,TOTAL 0.4 mg/dL (0.2-1.0); PHOSPHORUS 3.3 mg/dL (2.5-4.9); TOTAL PROTEIN, SERUM 7.4 g/dL (6.4-8.2)
[2022-02-26] MEDS: RIVAROXABAN 10 MG TABLET PO SCH (08:50)
[2022-02-26] MEDS: clonazePAM 1 MG TABLET PO SCH ×2 (08:50→17:00)
[2022-02-26] MEDS: ASCORBIC ACID 500 MG TABLET PO SCH (08:50)
[2022-02-26] MEDS: DIVALPROEX SODIUM 250 MG TABLET.DR PO SCH ×4 (08:50→21:00)
[2022-02-26] MEDS: DOCUSATE SODIUM 100 MG CAPSULE PO SCH ×2 (08:50→17:00)
[2022-02-26] MEDS: MUPIROCIN OINT 2% 22 GM TUBE NS SCH ×2 (08:50→21:20)
[2022-02-26 15:54] VITALS: BP 82/47
--- NOTE | 2022-02-26 18:50 | NUR ---
RN NOTE PATIENT NOTED WITH RESTLESSNESS AND TRYING TO GET OOB. REPOSITIONED PATIENT, LORAZEPAM 1 MG GIVEN IVP ORDERED. WILL CONTINUE TO MONITOR PATIENT.
--- NOTE | 2022-02-26 19:00 | NUR ---
RN NOTE PATIENT CURRENTLY ASLEEP IN BED. NO SIGNS OF ACUTE DISTRESS NOTED. SCHEDULED FOR PEG PLACEMENT TONIGHT WITH DR. RIVAS. NPO MAINTAINED. ENDORSED TO NEXT SHIFT.
[2022-02-26 19:21] LABS: BAND % (MANUAL) 7 % (0.0-5.0); EOSINOPHILS % (MANUAL) 4 % (0-4); LYMPHOCYTES % (MANUAL) 6 % (16-48); MONOCYTES % (MANUAL) 5 % (0-11.0); NEUTROPHILS % (MANUAL) 78 (42-76)
--- NOTE | 2022-02-26 19:34 | NUR ---
RN OPENING NOTE PATIENT ASLEEP IN BED. A/OX1 (NAME). NO S/S OF DISTRESS, BREATHING WITHOUT DIFFICULTY ON ROOM AIR. GRIFFIN MIDLINE #18 W/ D5W 100ML/HR. SAFETY MEASURES IN PLACE: BED LOCKED IN PLACE AND AT LOWEST POSITION, RAILS UP X2, CALL FRAUSTO WITHIN REACH. WILL CONTINUE TO MONITOR PATIENT.
--- NOTE | 2022-02-26 19:45 | NUR ---
RN NOTE PATIENT TAKEN DOWN TO OR FOR HER PEG PLACEMENT PROCEDURE. PATIENT STABLE.
[2022-02-26 20:00] VITALS: BP 71/44
[2022-02-26] MEDS ORDERED: CLINDAMYCIN IV RTU IN D5W 50 ML ONE (20:02)
--- NOTE | 2022-02-26 21:00 | NUR ---
RN NOTE PATIENT RETURNED FROM OR STABLE. VS: BP 71/44 ( MAKRED FROM POST-OP) HR 68 O2 93% R 24 WILL CONTINUE TO MONITOR PATENT.
--- NOTE | 2022-02-26 21:45 | NUR ---
RN NOTE PATIENT'S VS ARE IMPROVING BP 79/53 HR 65 O2 97%
[2022-02-27] VITALS: BP 110/55
[2022-02-27 06:26] LABS: ALBUMIN 1.5 g/dL (3.4-5.0); BILIRUBIN,TOTAL 0.5 mg/dL (0.2-1.0); CALCIUM, SERUM 9.1 mg/dL (8.5-10.1); CREATININE 1.6 mg/dL (0.6-1.3); MAGNESIUM 2.4 mg/dL (1.8-2.4); PHOSPHORUS 4.4 mg/dL (2.5-4.9); POTASSIUM 3.4 mmol/L (3.5-5.1); TOTAL PROTEIN, SERUM 6.9 g/dL (6.4-8.2)
[2022-02-27 06:51] LABS: BASOPHILS % (AUTO) 0.1 % (0.0-2.0); EOSINOPHILS % (AUTO) 1.6 % (0.0-6.0); HEMATOCRIT 30 % (33-45); HEMOGLOBIN 9.4 g/dL (11.5-14.8); LYMPHOCYTES # (AUTO) 0.8 K/uL (0.8-4.8); LYMPHOCYTES % (AUTO) 14.9 % (20.0-44.0); MEAN CORPUSCULAR HGB CONC 32 g/dl (31.0-36.0); MEAN CORPUSCULAR VOLUME 86 fL (82-100); MONOCYTES # (AUTO) 0.3 K/uL (0.1-1.30); MONOCYTES % (AUTO) 4.8 % (2.0-12.0); NEUTROPHILS # (AUTO) 4.5 K/uL (1.8-8.9); NEUTROPHILS % (AUTO) 78.6 % (43.0-81.0); RED BLOOD CELL COUNT(AUTO) 3.48 MIL/uL (4.0-5.2); WHITE BLOOD COUNT (AUTO) 5.7 K/uL (4.3-11.0)
--- NOTE | 2022-02-27 06:52 | NUR ---
RN CLOSING NOTE PATIENT ASLEEP IN BED. A/OX1 (NAME). NO S/S OF DISTRESS, BREATHING WITHOUT DIFFICULTY ON 6L NC. GRIFFIN MIDLINE #18 INTACT AND PATENT W/ D5W 100ML/HR. SAFETY MEASURES IN PLACE: BED LOCKED AND AT LOWEST POSITION, RAILS UP X2, CALL FRAUSTO WITHIN REACH. WILL ENDORSE TO NEXT SHIFT FOR TREY.
[2022-02-27 07:00] LABS: PLATELET COUNT (AUTO) 41 K/uL (150-450)
--- NOTE | 2022-02-27 07:30 | NUR ---
RN OPENING NOTE PATIENT ASLEEP IN BED. A/OX1 (NAME). NO S/S OF DISTRESS, ON 6L NC. GRIFFIN MIDLINE #18 W/ D5W 100ML/HR. G TUBE IN PLACE. SAFETY MEASURES IN PLACE: BED LOCKED IN PLACE AND AT LOWEST POSITION, RAILS UP X2, CALL FRAUSTO WITHIN REACH. WILL CONTINUE TO MONITOR PATIENT
[2022-02-27 08:00] VITALS: BP 98/49
[2022-02-27] MEDS: LEVOTHYROXINE SODIUM 50 MCG TABLET PO SCH (08:28)
[2022-02-27] MEDS: DIVALPROEX SODIUM 250 MG TABLET.DR PO SCH ×4 (08:29→21:15)
[2022-02-27] MEDS: clonazePAM 1 MG TABLET PO SCH ×2 (08:29→17:16)
[2022-02-27] MEDS: BISACODYL (5 MG) 5 MG TABLET.DR PO SCH (08:29)
[2022-02-27] MEDS: ASCORBIC ACID 500 MG TABLET PO SCH (08:29)
[2022-02-27] MEDS: DOCUSATE SODIUM 100 MG CAPSULE PO SCH ×2 (08:29→17:15)
[2022-02-27] MEDS: PANTOPRAZOLE 40 MG TABLET.DR PO SCH (08:29)
[2022-02-27] MEDS: MUPIROCIN OINT 2% 22 GM TUBE NS SCH ×2 (08:31→21:50)
[2022-02-27] MEDS: RIVAROXABAN 10 MG TABLET PO SCH (08:39)
--- NOTE | 2022-02-27 09:00 | NUR ---
RN NOTE PICKLE PUMPER JOSE SAYS G TUBE IS GOOD TO USE FOR MEDS. CHANGED KEPPRA FROM IV TO G TUBE. MEDS GIVEN. PATIENT ABLE TO TOLERATE
[2022-02-27] MEDS: LEVETIRACETAM SOL (5 ML) 100 MG/ML UDC PEG SCH ×2 (09:14→21:15)
[2022-02-27] MEDS ORDERED: POTASSIUM CHLORIDE 10 MEQ TABLET.SA PO ONE (11:00)
[2022-02-27] MEDS ORDERED: GLUCERNA 1.2 1,000 ML BOTTLE NG PRN (11:00)
[2022-02-27 12:25] LABS: BAND % (MANUAL) 6 % (0.0-5.0); LYMPHOCYTES % (MANUAL) 15 % (16-48); MONOCYTES % (MANUAL) 5 % (0-11.0); NEUTROPHILS % (MANUAL) 72 (42-76)
[2022-02-27 12:26] LABS: EOSINOPHILS % (MANUAL) 2 % (0-4)
[2022-02-27] MEDS: GLUCERNA 1.2 1,000 ML BOTTLE NG PRN (12:57)
[2022-02-27] MEDS: IV D5W 1,000 ML IV SCH (13:54)
[2022-02-27 16:00] VITALS: BP 96/49
--- NOTE | 2022-02-27 17:24 | NUR ---
RN NOTE\ G TUBE FEEDING STOPPED PER MD ORDERS. RESIDUALS AT 160 (>150). WILL REEVALUATE AND CONTINUE FEEDING IF POSSIBLE
--- NOTE | 2022-02-27 19:07 | NUR ---
RN CLOSING NOTE PATIENT ASLEEP IN BED. A/OX1 (NAME). NO S/S OF DISTRESS, BREATHING WITHOUT DIFFICULTY ON 6L NC. GRIFFIN MIDLINE #18 INTACT AND PATENT. G TUBE FEEDING STOPPED DUE TO HIGH RESIDUALS. WOUND CARE PERFORMED. PATIENT WITH PUREWICK. SAFETY MEASURES IN PLACE: BED LOCKED AND AT LOWEST POSITION, RAILS UP X2, CALL FRAUSTO WITHIN REACH. WILL ENDORSE TO NEXT SHIFT FOR CONTINUATION OF CARE.
--- NOTE | 2022-02-27 19:30 | NUR ---
MS RN OPENING NOTES Received patient in bed asleep and able to wake up by touch. A/O x 1. No respiratory distress noted. IV access at GRIFFIN midline 18G, patent and intact. Patient has G-tube. Safety measures given with bed on low position and locked. Side rails up x 2. Bed alarm on. Call light placed within reach. Will continue with the plan of care.
[2022-02-27 20:00] VITALS: BP 157/75
[2022-02-27] MEDS: MIDODRINE HCL (5MG) 5 MG TABLET PO SCH (20:56)
--- NOTE | 2022-02-27 20:57 | NUR ---
RN notes Pt's BP 157/75. Held midodrine. Will continue to monitor.
[2022-02-27] MEDS: Potassium Chloride 20 MEQ in IV D5W 1,000 ML IV SCH (21:01)
[2022-02-28] VITALS (39 sets, daily range): BP systolic 57–139; BP diastolic 35–103
[2022-02-28] MEDS: Potassium Chloride 20 MEQ in IV D5W 1,000 ML IV SCH ×2 (06:11→14:47)
--- NOTE | 2022-02-28 06:50 | NUR ---
MS RN CLOSING NOTES Patient in bed asleep and able to wake up by touch. A/O x 1. No respiratory distress noted. IV access at GRIFFIN midline 18G, patent and intact. Patient has G-tube. Medications given as directed. Kept clean and dry. Safety measures given with bed on low position and locked. Side rails up x 2. Bed alarm on. Call light placed within reach. Will endorse to the next shift for the continuity of care.
--- NOTE | 2022-02-28 07:25 | NUR ---
RN OPENING NOTE RECEIVED PATIENT ASLEEP IN BED WITH HOB ELEVATED, AOX1, EYES ARE CLOSED, RESPONSIVE TO VERBAL AND TACTILE STIMULI, NO S/S OF ANY APPARENT DISTRESS NOTED, ON 6L OXYGEN INHALATION VIA NC, NO SOB NOTED. GRIFFIN MIDLINE #18 W/ KCL 20 MEQ IN D5W 100ML/HR. PATIENT HAS G-TUBE FEEDING OF GLUCERNA 1.2 @40 ML/HR. RESIDUAL OF ABOUT 25 ML NOTED. PATIENT HAS PURE WICK PLACED. SAFETY MEASURES IN PLACE: BED LOCKED IN PLACE AND AT LOWEST POSITION, RAILS UP X2, CALL LIGHT AND TRAY TABLE WITHIN REACH. WILL CONTINUE TO MONITOR PATIENT.
[2022-02-28] MEDS: PANTOPRAZOLE 40 MG TABLET.DR PO SCH (08:02)
[2022-02-28] MEDS: LEVOTHYROXINE SODIUM 50 MCG TABLET PO SCH (08:02)
[2022-02-28] MEDS: DOCUSATE SODIUM 100 MG CAPSULE PO SCH (08:03)
[2022-02-28] MEDS: clonazePAM 1 MG TABLET PO SCH (08:03)
[2022-02-28] MEDS: LEVETIRACETAM SOL (5 ML) 100 MG/ML UDC PEG SCH (08:04)
[2022-02-28] MEDS: ASCORBIC ACID 500 MG TABLET PO SCH (08:04)
[2022-02-28] MEDS: DIVALPROEX SODIUM 250 MG TABLET.DR PO SCH ×2 (08:04→12:12)
[2022-02-28] MEDS: MIDODRINE HCL (5MG) 5 MG TABLET PO SCH ×2 (08:05→12:13)
[2022-02-28] MEDS: RIVAROXABAN 10 MG TABLET PO SCH (08:06)
--- NOTE | 2022-02-28 08:20 | NUR ---
RN NOTES - INCREASED G-TUBE FEEDING FROM 40 ML/HR TO 45 ML/HR. RESIDUAL WAS 10 ML. WILL CONTINUE TO MONITOR.
[2022-02-28] MEDS: MUPIROCIN OINT 2% 22 GM TUBE NS SCH ×2 (08:43→21:34)
--- NOTE | 2022-02-28 10:40 | NUR ---
RN NOTES - ABG SAMPLE TAKEN BY RT, WILL RELAY TO JOSE HARDY ONCE RESULTED
[2022-02-28 10:49] LABS: ABG BASE EXCESS -0.8 mmol/L; ABG OXYGEN SATURATION 92.7 % (92.0-98.5); ABG PCO2 45.3 mmHg (35.0-45.0); ABG PH 7.358 (7.350-7.450); ABG PO2 69.3 mmHg (75.0-100.0); AaDO2 192.8 mmHg; COHb 0.5 % (0.5-1.5); MetHb 0.2 % (0.0-1.5); O2Hb 92.1 % (94.0-97.0); SITE, ABG Left Brachial; VENT MODE, BG 6LPM NC
--- NOTE | 2022-02-28 12:50 | NUR ---
RN NOTES - CHANGE OF CONDITION PATIENT NOTED TO HAVE THICK SECRETION FLOWING FROM HER MOUTH AND MORE CONGESTION UPON AUSCULTATION IS NOTED, CHECKED SPO2 AND AROUND 75% ON 6LPM OXYGEN VIA NC, STOPPED THE G-FEEDING, CHANGED THE NASAL CANNULA TO FACE MASK AND INCREASED TO 8LPM, SPO2 INCREASED TO 86-88%. SUCTIONING WAS INITIATED WHILE WAITING FOR RT, HOSPITALIST HAS BEEN NOTIFIED WELL.
--- NOTE | 2022-02-28 13:10 | NUR ---
RN NOTES - RT CHANGED TO NON-REBREATHER MASK AND PUT OXYGEN SATURATION TO 15 LPM, NASOGRASTRIC SUCTIONING WAS PERFORMED A TOTAL OF ABOUT 100 ML OF FLUIDS WAS SUCTIONED. PATIENT'S SPO2 WAS AT 92% AND RR WENT DOWN FROM 80 BPM TO 62 BPM AFTER. AWAITING PULMONOLOGY CONSULT.
--- NOTE | 2022-02-28 13:35 | NUR ---
RN NOTES - DR PEGUERO, SWIMMING POOL INSTALLER AND SERVICER ORDERED THE PATIENT TO BE TRANSFERRED TO ICU PATIENT IS UNSTABLE. CHARGE NURSE AWARE, AWAITING ROOM.
--- NOTE | 2022-02-28 13:43 | NUR ---
RN NOTES - PATIENT IS GOING TO ICU ROOM 253.
--- NOTE | 2022-02-28 13:55 | NUR ---
RN NOTES - TRANSFERRED THE PATIENT ACLS VIA HER BED SAFELY TO ICU ROOM 253 PER MD ORDER AT AROUND 1350 FROM [facility] WITH JOEY SANTACRUZ. PT ON 15 LPM OXYGEN VIA NON REBREATHER MASK WITH HOB ELEVATED, SATURATING AT 92%. BEDSIDE REPORT WAS GIVEN TO JOEY MORALES. PATIENT CHART AND MEDICATIONS WERE ENDORSED WELL.
[2022-02-28] MEDS ORDERED: VANCOMYCIN 1 GM in IV D5W 250 ML IV ONE (14:00)
--- NOTE | 2022-02-28 14:00 | NUR ---
ICU/RN PT TRANSFERED FROM TELE UNIT, BP LOW ,SAT O2-87%. UNRESPOSIVE..DR PEGUERO SEEN THE PT .PT NEED TO BE INTUBATED. ER MD CALLED.RT NOTIFIED.
--- NOTE | 2022-02-28 14:13 | NUR ---
RT NOTE PATIENT ORALLY INTUBATED WITH A 7.0 ETT, 21CM AT THE LIP. POSITIVE CO2 COLOR CHANGE NOTED. BILATERAL BREATH SOUNDS ON AUSCULTATION. ETT SECURED BY ANCHOR FAST. VENT PLUGGED INTO RED OUTLET. ALARMS ON AND SET PROPERLY. BVM AT HEAD OF BED. NO SOB OR RESPIRATORY DISTRESS NOTED AT THIS TIME. WILL CONTINUE TO MONITOR FOR ANY CHANGES.
--- NOTE | 2022-02-28 14:15 | NUR ---
ICU/RN PT IS INTUBATED .PLACED ON 100% FIO2. SAT O2-98 %. DIPRIVAN AND LEVOPHED ORDERED.F/C INSERTED .G-TUBE CLAMPED.RIGHT UPPER ARM MID LINE,
[2022-02-28] MEDS ORDERED: PHARMACY TO CHANGE PO MEDS TO GT/NG XX PRN (15:00)
[2022-02-28] MEDS ORDERED: ACETAMINOPHEN 650 MG/20.3 ML UDC GT PRN (15:30)
[2022-02-28] MEDS: PROPOFOL 100 ML IV PRN (15:33)
[2022-02-28] MEDS: NOREPINEPHRINE 8 MG in IV NS 0.9% 242 ML IV PRN ×2 (15:35→21:36)
[2022-02-28 16:05] LABS: ABG BASE EXCESS -1.2 mmol/L; ABG OXYGEN SATURATION 93.2 % (92.0-98.5); ABG PCO2 47.4 mmHg (35.0-45.0); ABG PH 7.338 (7.350-7.450); ABG PO2 71.4 mmHg (75.0-100.0); AaDO2 594.2 mmHg; COHb 0.3 % (0.5-1.5); MetHb 0.1 % (0.0-1.5); O2Hb 92.8 % (94.0-97.0); SITE, ABG Left Brachial
--- NOTE | 2022-02-28 16:08 | NUR ---
ICU/RN DIPRIVAN STARTED, PT WAS AGITATED. BILATERAL WRIST RESTRAINS ON. LEVOPHED DRIP STARTED ORDERED.ABG DONE. DR PEGUERO NOTIFIED.CONTINUE MONITORING.
[2022-02-28] MEDS ORDERED: clonazePAM 0.5 MG TABLET GT SCH (17:00)
[2022-02-28] MEDS ORDERED: DIVALPROEX SODIUM 250 MG TABLET.DR PO SCH (17:00)
[2022-02-28] MEDS: DOCUSATE SODIUM LIQ 100 MG/10 ML UDC GT SCH (17:13)
[2022-02-28] MEDS: MEROPENEM 1 G in IV NS 0.9% 100 ML IV SCH (17:13)
[2022-02-28] MEDS: DIVALPROEX SODIUM 125 MG CAP.SPRINK GT SCH ×2 (17:13→21:32)
[2022-02-28] MEDS: MIDODRINE HCL (5MG) 5 MG TABLET GT SCH (17:14)
[2022-02-28] MEDS: VANCOMYCIN 1.5 GM in IV D5W 500 ML IV SCH (17:35)
[2022-02-28] MEDS ORDERED: SUCCINYLCHOLINE CHLORIDE 20 MG/ML VIAL IV ONE (18:02)
[2022-02-28] MEDS ORDERED: ETOMIDATE 2 MG/ML VIAL IV ONE (18:02)
--- NOTE | 2022-02-28 19:50 | NUR ---
PARTNERSHIP MARKETING MANAGER. INITIAL ASSESSMENT. RECEIVED THE PT REST IN BED. ORALLY INTUBATED, SEDATED WITH PROPOFOL 10MCG/KG/MIN,ETT#7,LIP 20,AC 20,TV 550.FIO2 100%,PEEP 5, SAT 92%. NO ACUTE DISTRESS NOTED. PARK SUPERINTENDENT SHOWING SR, GT CLAMPED. FC PATENT. IV RT UPPER ARM MID LINE LEVOPHED 0.3MCG/KG/MIN,PROPOFOL 10MCG/KG/MIN,IVF D5W IN 20 MEQ K @ 100ML/H. FC PATENT. DEMETRIO SOFT WRIST RESTRAINT CHECKED AND RELEASED NO INJURY OR REDNESS NOTED. TEMPERATURE IS 96. KATHERINE HUGGER ON. WILL CONTINUE TO MONITOR VITALS.
[2022-02-28] MEDS: LEVETIRACETAM SOL (5 ML) 100 MG/ML UDC GT SCH (21:32)
[2022-03-01] VITALS (90 sets, daily range): BP systolic 58–128; BP diastolic 29–75
[2022-03-01] MEDS: Potassium Chloride 20 MEQ in IV D5W 1,000 ML IV SCH ×3 (00:29→22:30)
[2022-03-01] MEDS: PROPOFOL 100 ML IV PRN ×2 (00:29→12:29)
[2022-03-01] MEDS: NOREPINEPHRINE 8 MG in IV NS 0.9% 242 ML IV PRN ×3 (01:52→08:48)
--- NOTE | 2022-03-01 02:40 | NUR ---
JEWEL GAUGER. AM CARE GIVEN. REMAINING SAME VENT SETTINGS TOLERATED WELL. SAT 95%. MONITORING ANALYST SHOWING NSR. IV RT UPPER ARM MID LINE. LEVOPHED 0.4 MCG/KG/MIN, PROPOFOL 10 MCG/KG/MIN,IVF FC PATENT. HOB ELEVATED.GT CLAMPED, turn and reposition q2h. will continue to monitor vitals.
[2022-03-01] MEDS ORDERED: NOREPINEPHRINE 8MG/250ML RTU 0 ML IV ONE (04:19)
[2022-03-01 04:21] LABS: BASOPHILS % (AUTO) 0.1 % (0.0-2.0); EOSINOPHILS % (AUTO) 2.7 % (0.0-6.0); HEMATOCRIT 32 % (33-45); HEMOGLOBIN 10.1 g/dL (11.5-14.8); LYMPHOCYTES # (AUTO) 0.7 K/uL (0.8-4.8); LYMPHOCYTES % (AUTO) 27.6 % (20.0-44.0); MEAN CORPUSCULAR HGB CONC 32 g/dl (31.0-36.0); MEAN CORPUSCULAR VOLUME 85 fL (82-100); MONOCYTES # (AUTO) 0.3 K/uL (0.1-1.30); MONOCYTES % (AUTO) 11.6 % (2.0-12.0); NEUTROPHILS # (AUTO) 1.5 K/uL (1.8-8.9); PLATELET COUNT (AUTO) 59 K/uL (150-450); RED BLOOD CELL COUNT(AUTO) 3.73 MIL/uL (4.0-5.2); WHITE BLOOD COUNT (AUTO) 2.5 K/uL (4.3-11.0)
[2022-03-01 04:24] LABS: CALCIUM, SERUM 8.8 mg/dL (8.5-10.1); CREATININE 1.8 mg/dL (0.6-1.3); POTASSIUM 4.1 mmol/L (3.5-5.1)
[2022-03-01] MEDS ORDERED: NOREPINEPHRINE 4 MG/4 ML AMPUL IV ONE (04:25)
[2022-03-01] MEDS: MEROPENEM 1 G in IV NS 0.9% 100 ML IV SCH ×2 (06:56→16:25)
--- NOTE | 2022-03-01 07:15 | NUR ---
LEAD APPLICATION ARCHITECT Bedside report taken from [facility] nurse Rosa COOK. pt sedated, grimace and w/d to pain in bue and ble, pt does not open eyes or follow commands. perrla 2 sluggish. pt intubated on ac vent setting with fio2 100%, pt tolerating well, spo2 98%, timbo lung sounds clear diminished at bases. pt tachycardic on monitor with HR 115. pt on levophed sbp 80-90s but MAP >65. bue and ble pulses present and palpable but weak, pt has bue and ble edema +3. pt has glez intact and draining pierre color urine. pt has peg, positive placement verified, clamped, pt npo at this time. pt has wounds noted see flowsheet. all lines traced. all drips verified. safety measures in place. will continue to monitor.
[2022-03-01] MEDS: LEVOTHYROXINE SODIUM 50 MCG TABLET GT SCH (07:30)
[2022-03-01] MEDS: DIVALPROEX SODIUM 125 MG CAP.SPRINK GT SCH ×4 (09:43→21:22)
[2022-03-01] MEDS: LEVETIRACETAM SOL (5 ML) 100 MG/ML UDC GT SCH ×2 (09:43→21:22)
[2022-03-01] MEDS: MIDODRINE HCL (5MG) 5 MG TABLET GT SCH ×3 (09:43→16:24)
[2022-03-01] MEDS: PANTOPRAZOLE 40 MG/PACK PACK PO SCH (09:43)
[2022-03-01] MEDS: DOCUSATE SODIUM LIQ 100 MG/10 ML UDC GT SCH ×2 (09:43→16:24)
[2022-03-01] MEDS: RIVAROXABAN 10 MG TABLET GT SCH (09:45)
[2022-03-01] MEDS: ASCORBIC ACID 500 MG TABLET GT SCH (09:45)
[2022-03-01] MEDS: MUPIROCIN OINT 2% 22 GM TUBE NS SCH ×2 (09:45→21:22)
--- NOTE | 2022-03-01 10:00 | NUR ---
MINIATURE MODEL MAKER Dr Dozier at bedside assessing and updated on pt status. md aware that pt on minimal sedation, and does not open eyes or follow commands but has a weak cough/ gag and minimal w/d in bue. MD aware that pt on levophed at 0.5 mcg/kg/min and that bp 80-90s but map 62-70 ok per md. Propofol off at this time per md and new orders for prn versed pending per md. no other orders at this time. will continue to monitor.
--- NOTE | 2022-03-01 10:18 | NUR ---
ADJUNCT PROFESSOR OF VOICE Dr Dozier aware that pt has critical procal 3.34 ok per md. no new orders at this time.
[2022-03-01] MEDS: NOREPINEPHRINE 32 MG in IV NS 0.9% 218 ML IV PRN ×3 (11:39→22:23)
[2022-03-01] MEDS: ACETAMINOPHEN 325 MG TABLET PO PRN ×2 (11:40→16:24)
--- NOTE | 2022-03-01 11:43 | NUR ---
SOLAR SALES REP prn tylenol given for temp 100.8. will reassess.
[2022-03-01] MEDS: LORAZEPAM INJ 2 MG/ML VIAL IV PRN (12:21)
--- NOTE | 2022-03-01 12:24 | NUR ---
CIGAR HEAD STRINGER pt had 1 episode of vomiting [address] Dozier at bedside made aware, prn zofran given, no other orders at this time.
--- NOTE | 2022-03-01 12:28 | NUR ---
ASSEMBLER TRIM Dr Dozier at bedside made aware that pt slightly aggitated, coughing against vent, no episode of desaturating but using accessory muscles, md aware that prn ativan given, but pt still aggitated and breathing against ventilator. ok per md to restart propofol. Propofol restarted per md order. other vitals stable. will continue to monitor.
--- NOTE | 2022-03-01 12:32 | NUR ---
INSERTING OPERATOR Dr Dozier made aware that pt blood cultures positive for gram positive rods, no new orders at this time.
--- NOTE | 2022-03-01 16:55 | NUR ---
RADIOLOGY EQUIPMENT SERVICER Pt bathed and cleaned , linen change done. skin check done with Tatyana OCOK, no new wounds noted. pt tolerated well. all lines traced all drips verified. safety measures in place. will continue to monitor.
--- NOTE | 2022-03-01 17:05 | NUR ---
COMMERCIAL APPRAISER Dr Paniagua at bedside assessing pt and updated on pt status. md aware that propofol off in am at 9 am and that pt was aggitated, coughing and breathing against ventilator, per Dr Dozier ok to restart propofol, propofol restarted at 5 mcg/kg/min and pt tolerating well and remains on current dose and comfortable on ventilator. Md aware that when pt off propofol, pt has strong cough and gag and w/d in bue and trace movement in ble, but pt does not open eyes or follow commands. ok per md, no new orders at this time.
[2022-03-01] MEDS: VANCOMYCIN 1.5 GM in IV D5W 500 ML IV SCH (17:18)
--- NOTE | 2022-03-01 18:15 | NUR ---
TRANSFORMER STOCK CLERK Pt spo2 88% sustainted, fio2 increased to 80%, spso2 93%, other vitals stable. will continue to monitor.
[2022-03-01 18:45] LABS: BAND % (MANUAL) 14 % (0.0-5.0); LYMPHOCYTES % (MANUAL) 42 % (16-48); MONOCYTES % (MANUAL) 14 % (0-11.0); NEUTROPHILS % (MANUAL) 30 (42-76)
--- NOTE | 2022-03-01 18:58 | NUR ---
INSPECTOR COATED FABRICS Bedside report given to [facility] nurse Flaco COOK . pt sedated and intubated. all lines traced. all drips verified. pt clean and dry. safety measures in place. no signs of acute distress at this time.
[2022-03-02] VITALS (94 sets, daily range): BP systolic 87–122; BP diastolic 55–80
[2022-03-02] MEDS: PROPOFOL 100 ML IV PRN ×3 (01:08→21:18)
--- NOTE | 2022-03-02 02:39 | NUR ---
RT NOTE Pt rec'd orally intubated via ETT SZ #7.5 secured at 23cm at the lipline. Pt on mech vent on AC mode settings as charted. ETT is patent and secured. Pt sx'd for thick mod amt of pale yellow secretions. Alarms are set and audible. Ambu bag at bedside. Vent plugged into red outlet will continue to monitor closely.
--- NOTE | 2022-03-02 02:43 | NUR ---
RT NOTE Pt rec'd orally intubated via ETT SZ #7.0 secured at 21cm at the lipline. Pt on [facility] vent on AC mode settings as charted. ETT is patent and secured. Pt sx'd for thick mod amt of bloody secretions. Alarms are set and audible. Ambu bag at bedside. Vent plugged into red outlet will continue to monitor closely. Addendum: 03/02/22 at 0244 by TI COREAS RT Amended: Links added.
[2022-03-02] MEDS: NOREPINEPHRINE 32 MG in IV NS 0.9% 218 ML IV PRN ×3 (04:00→19:58)
[2022-03-02] MEDS: MEROPENEM 1 G in IV NS 0.9% 100 ML IV SCH ×2 (05:04→16:50)
[2022-03-02 05:06] LABS: CALCIUM, SERUM 9.1 mg/dL (8.5-10.1); CREATININE 1.9 mg/dL (0.6-1.3); POTASSIUM 5.5 mmol/L (3.5-5.1)
--- NOTE | 2022-03-02 07:30 | NUR ---
OPENING NOTE: REPORT RECEIVED FROM CAMILA COOK. LABS AND ORDERS REVIEWED DURING REPORT.
[2022-03-02] MEDS: BISACODYL (5 MG) 5 MG TABLET.DR GT SCH (07:58)
[2022-03-02] MEDS ORDERED: MINERAL OIL/PETROLATUM,WHITE 120 GM JAR TP PRN (08:00)
--- NOTE | 2022-03-02 08:04 | NUR ---
DR CASTILLO NOTIFIED OF PROCALCITONIN RESULT THIS AM OF 25.45. NO ORDERS GIVEN AT THIS TIME
[2022-03-02 09:05] LABS: ABG BASE EXCESS -4.6 mmol/L; ABG PCO2 35.5 mmHg (35.0-45.0); ABG PO2 64.4 mmHg (75.0-100.0); AaDO2 468.7 mmHg; COHb 0.3 % (0.5-1.5); MetHb 0.4 % (0.0-1.5); O2Hb 91.4 % (94.0-97.0); PEEP,BG 5 cm H2O; SITE, ABG Right Brachial; VT, ABG 550 mL
[2022-03-02] MEDS: MUPIROCIN OINT 2% 22 GM TUBE NS SCH ×2 (09:09→21:19)
[2022-03-02] MEDS: DIVALPROEX SODIUM 125 MG CAP.SPRINK GT SCH ×4 (09:10→21:20)
[2022-03-02] MEDS: MIDODRINE HCL (5MG) 5 MG TABLET GT SCH ×3 (09:10→16:50)
[2022-03-02] MEDS: PANTOPRAZOLE 40 MG/PACK PACK PO SCH (09:10)
[2022-03-02] MEDS: DOCUSATE SODIUM LIQ 100 MG/10 ML UDC GT SCH ×2 (09:10→16:50)
[2022-03-02] MEDS: LEVETIRACETAM SOL (5 ML) 100 MG/ML UDC GT SCH ×2 (09:10→21:21)
[2022-03-02] MEDS: Potassium Chloride 20 MEQ in IV D5W 1,000 ML IV SCH (09:10)
[2022-03-02] MEDS: ASCORBIC ACID 500 MG TABLET GT SCH (09:11)
[2022-03-02] MEDS: LEVOTHYROXINE SODIUM 50 MCG TABLET GT SCH (09:12)
[2022-03-02 09:33] LABS: BASOPHILS % (AUTO) 0.6 % (0.0-2.0); EOSINOPHILS % (AUTO) 1.5 % (0.0-6.0); HEMATOCRIT 31 % (33-45); HEMOGLOBIN 9.7 g/dL (11.5-14.8); LYMPHOCYTES # (AUTO) 1.1 K/uL (0.8-4.8); LYMPHOCYTES % (AUTO) 20.3 % (20.0-44.0); MEAN CORPUSCULAR HGB CONC 32 g/dl (31.0-36.0); MEAN CORPUSCULAR VOLUME 86 fL (82-100); MONOCYTES # (AUTO) 0.6 K/uL (0.1-1.30); MONOCYTES % (AUTO) 11.4 % (2.0-12.0); NEUTROPHILS # (AUTO) 3.6 K/uL (1.8-8.9); NEUTROPHILS % (AUTO) 66.2 % (43.0-81.0); PLATELET COUNT (AUTO) 63 K/uL (150-450); RED BLOOD CELL COUNT(AUTO) 3.56 MIL/uL (4.0-5.2); WHITE BLOOD COUNT (AUTO) 5.5 K/uL (4.3-11.0)
[2022-03-02] MEDS: IV D5W 1,000 ML IV PRN ×2 (09:36→19:47)
[2022-03-02] MEDS: RIVAROXABAN 10 MG TABLET GT SCH (09:49)
--- NOTE | 2022-03-02 09:49 | NUR ---
HAYLEY MAK NOTIFIED OF PLT OF 63, PINK TINGED SPUTUM. OK TO GIVEN XARALTO DOSE TODAY
[2022-03-02] MEDS ORDERED: SODIUM POLYSTYRENE SULFONATE 15 G/60 ML BOTTLE GT ONE (10:00)
[2022-03-02] MEDS: FENTANYL CITRAT IV 2,500 MCG in IV NS 0.9% 200 ML IV PRN (11:36)
[2022-03-02 12:49] LABS: BAND % (MANUAL) 10 % (0.0-5.0); EOSINOPHILS % (MANUAL) 3 % (0-4); LYMPHOCYTES % (MANUAL) 50 % (16-48); MONOCYTES % (MANUAL) 10 % (0-11.0); NEUTROPHILS % (MANUAL) 27 (42-76)
[2022-03-02] MEDS: VANCOMYCIN 1.5 GM in IV D5W 500 ML IV SCH (17:24)
--- NOTE | 2022-03-02 18:41 | NUR ---
END OF SHIFT NOTE: FENTANYL GTT STARTED PER DR GREOGRY'S ORDER. PROPOFOL INCREASED TO 15 MCG/KG/MIN D/T HI RESPIRATIONS. IVF CHANGED TO D5W @100/HR. SPUTUM CULTURE SENT TO LAB, RESULTS PENDING. PT CHECKED ON HOURLY AND PRN BY NURSING STAFF.
[2022-03-03] VITALS (91 sets, daily range): BP systolic 59–136; BP diastolic 37–87
[2022-03-03] MEDS: NOREPINEPHRINE 32 MG in IV NS 0.9% 218 ML IV PRN ×3 (03:16→18:44)
[2022-03-03] MEDS: PROPOFOL 100 ML IV PRN ×3 (03:17→19:52)
[2022-03-03] MEDS: MEROPENEM 1 G in IV NS 0.9% 100 ML IV SCH ×2 (05:13→16:16)
[2022-03-03] MEDS: IV D5W 1,000 ML IV PRN ×2 (05:36→16:42)
--- NOTE | 2022-03-03 06:51 | NUR ---
ICU/RN: LAB UNABLE TO DRAW AM LABS. WILL SEND ANOTHER PLEB LATER. WILL ENDORSE TO AM SHIFT.
--- NOTE | 2022-03-03 08:00 | NUR ---
rn notes patient resumed sedated with fentanyl 25mcg/kg/min, and Diprivan 15mcg/kg/min. iv access on shelly midline not working get emergency order picc line insertion. consent was signed via hospitalist AUBREE Tao. patient has distended abdomen, swollen generalized, GT intact and patient, NPO at this time except medication. keep HOB elevated for aspiration precaution. assist turn and reposition q 2 hr, rechecked restrain bilateral soft wrists. suctiom mouth care done. will follow up.
[2022-03-03] MEDS: DIVALPROEX SODIUM 125 MG CAP.SPRINK GT SCH ×4 (08:24→23:08)
[2022-03-03] MEDS: DOCUSATE SODIUM LIQ 100 MG/10 ML UDC GT SCH ×2 (08:24→16:17)
[2022-03-03] MEDS: LEVETIRACETAM SOL (5 ML) 100 MG/ML UDC GT SCH ×2 (08:24→23:08)
[2022-03-03] MEDS: PANTOPRAZOLE 40 MG/PACK PACK PO SCH (08:25)
[2022-03-03] MEDS: MIDODRINE HCL (5MG) 5 MG TABLET GT SCH ×3 (08:25→16:17)
[2022-03-03] MEDS: LEVOTHYROXINE SODIUM 50 MCG TABLET GT SCH (08:25)
[2022-03-03] MEDS: RIVAROXABAN 10 MG TABLET GT SCH (08:26)
[2022-03-03] MEDS: ASCORBIC ACID 500 MG TABLET GT SCH (08:27)
[2022-03-03] MEDS: MUPIROCIN OINT 2% 22 GM TUBE NS SCH ×2 (08:28→23:07)
--- NOTE | 2022-03-03 09:20 | NUR ---
RN NOTES PATIENT GET PICC LINE INSERTED ON GRIFFIN, CONSENT GET FROM HOSPITALIST HAYLEY MAK FOR EMERGENCY NECESSITATE.
[2022-03-03 09:33] LABS: BASOPHILS # (AUTO) 0.1 K/uL (0.0-0.2); BASOPHILS % (AUTO) 1.2 % (0.0-2.0); EOSINOPHILS % (AUTO) 1.3 % (0.0-6.0); HEMATOCRIT 23 % (33-45); HEMOGLOBIN 7.4 g/dL (11.5-14.8); LYMPHOCYTES # (AUTO) 1.3 K/uL (0.8-4.8); MEAN CORPUSCULAR HGB CONC 32 g/dl (31.0-36.0); MEAN CORPUSCULAR VOLUME 88 fL (82-100); MONOCYTES # (AUTO) 0.2 K/uL (0.1-1.30); NEUTROPHILS # (AUTO) 2.7 K/uL (1.8-8.9); NEUTROPHILS % (AUTO) 63.5 % (43.0-81.0); RED BLOOD CELL COUNT(AUTO) 2.64 MIL/uL (4.0-5.2); WHITE BLOOD COUNT (AUTO) 4.3 K/uL (4.3-11.0)
[2022-03-03 09:36] LABS: PLATELET COUNT (AUTO) 26 K/uL (150-450)
[2022-03-03 09:44] LABS: CALCIUM, SERUM 7.5 mg/dL (8.5-10.1); CREATININE 1.4 mg/dL (0.6-1.3); POTASSIUM 3.8 mmol/L (3.5-5.1)
--- NOTE | 2022-03-03 09:56 | NUR ---
RN NOTES GET CALL FROM LAB [id number]. I RECHECKED FINGERSTICK BS-187 MG/DL. HOSPITALIST AWARE OF.
[2022-03-03] MEDS ORDERED: DEXTROSE 50%-WATER 50 ML DISP.SYRIN IV PRN ×2 (10:00→16:30)
[2022-03-03] MEDS ORDERED: INSULIN REGULAR, HUMAN 100 UNIT/ML 3 ML VIAL SQ PRN ×2 (10:00→16:30)
--- NOTE | 2022-03-03 11:03 | NUR ---
FIO2 INCREASED FROM 80% TO 100% DUE TO 84% SPO2. RN NOTIFIED Addendum: 03/03/22 at 1104 by CODEY HUANG RT Amended: Links added.
--- NOTE | 2022-03-03 11:30 | NUR ---
RN NOTES PATIENT DESATURATING 84%, RT NEXT TO THE BED, CHANGED VENT SETTING FIO2-100 %, BP 112/74, P-121, ABG DONE. BS-172 MG/DL, T99.9F. WILL MONITORING.
[2022-03-03 11:51] LABS: ABG BASE EXCESS -7.1 mmol/L; ABG OXYGEN SATURATION 84.5 % (92.0-98.5); ABG PCO2 40.5 mmHg (35.0-45.0); ABG PH 7.289 (7.350-7.450); AaDO2 615.5 mmHg; COHb 0.5 % (0.5-1.5); MetHb 0.1 % (0.0-1.5); PEEP,BG 5 cm H2O; SITE, ABG Right Brachial; VT, ABG 550 mL
--- NOTE | 2022-03-03 12:21 | NUR ---
PEEP + 8 PER MD ORDERED Addendum: 03/03/22 at 1222 by CODEY HUANG RT Amended: Links added.
[2022-03-03] MEDS: BLOOD SUGAR DIAGNOSTIC 1 EACH STRIP IN SCH ×4 (13:00→23:07)
[2022-03-03] MEDS: VANCOMYCIN 1.5 GM in IV D5W 500 ML IV SCH (14:55)
[2022-03-03] MEDS: FENTANYL CITRAT IV 2,500 MCG in IV NS 0.9% 200 ML IV PRN (15:36)
--- NOTE | 2022-03-03 16:16 | NUR ---
rn notes administered Tylenol 650 mg/ml via GT for T-100.2F, and cooling measure. also started gtf Glucerna @20ml/h, due medication administered.
[2022-03-03] MEDS: GLUCERNA 1.2 1,000 ML BOTTLE NG PRN (16:38)
[2022-03-03] MEDS ORDERED: GLUCERNA 1.2 1,000 ML BOTTLE NG PRN (17:00)
--- NOTE | 2022-03-03 17:57 | NUR ---
RN NOTES RESIDUAL WAS 600ML, HELD FEEDING, PATIENT NPO , PATIENT REMAIN SEDATED. T-99.2 F MEDICATION WERE ADMINISTERED EFFECTIVE. FOR PM CARE DONE, SUCTION. ENDORSED ONCOMING NURSE TREY.
[2022-03-03] MEDS ORDERED: IV NS 0.9% 1,000 ML IV ONE (18:00)
[2022-03-03 18:04] LABS: EOSINOPHILS % (MANUAL) 2 % (0-4); LYMPHOCYTES % (MANUAL) 3 % (16-48); MONOCYTES % (MANUAL) 3 % (0-11.0); NEUTROPHILS % (MANUAL) 92 (42-76)
[2022-03-03] MEDS: LORAZEPAM INJ 2 MG/ML VIAL IV PRN (20:59)
[2022-03-03] MEDS ORDERED: PHENYLEPHRINE 10 MG/ML VIAL ONE (21:14)
[2022-03-03] MEDS: PHENYLEPHRINE 50 MG in IV NS 0.9% 245 ML IV PRN (21:20)
--- NOTE | 2022-03-03 21:30 | NUR ---
GEOSCIENCE LABORATORY TECHNICIAN PT NOTED TO DESATURATE DESPITE BEING ON 100% FIO2 RT MANUALLY BAGGED PT; PT NOTED TO BECOME KANIKA. PROPOFOL AND FENTANYL STOPPED AT THIS TIME. FOOD GENERAL MANAGER BELLO NOTIFIED.
[2022-03-04] VITALS (49 sets, daily range): BP systolic 51–125; BP diastolic 23–93
[2022-03-04] MEDS: NOREPINEPHRINE 32 MG in IV NS 0.9% 218 ML IV PRN ×3 (00:09→09:59)
--- NOTE | 2022-03-04 01:04 | NUR ---
PEARL DIVER PT SATURATION DECREASED TO 30%; PT BECAME KANIKA HAD AN EPISODE OF VTACH HYPOTENSIVE; CODE BLUE CALLED PER PROTOCOL. CHUMMER BELLO NOTIFIED WITH ORDERS FOR VASO AND EPI AND TO MAX OUT ALL DRIPS.
[2022-03-04] MEDS ORDERED: EPINEPHRINE (1:1000) 1 MG/ML AMPUL ONE (01:14)
[2022-03-04] MEDS ORDERED: VASOPRESSIN INJ 20 UNIT/ML VIAL ONE (01:26)
[2022-03-04] MEDS ORDERED: VASOPRESSIN INJ 40 UNIT in IV NS 0.9% 38 ML IV PRN (01:30)
[2022-03-04] MEDS ORDERED: EPINEPHRINE (1:1000) 5 MG in IV NS 0.9% 245 ML IV PRN (01:30)
[2022-03-04] MEDS ORDERED: IV LR 1000 ML 1,000 ML IV ONE (01:30)
[2022-03-04] MEDS ORDERED: EPINEPHRINE (1:10,000) SYRINGE 1 MG/10 ML DISP.SYRIN ONE ×2 (01:50→01:52)
[2022-03-04] MEDS ORDERED: EPINEPHRINE (1:1000) MDV 30 MG/30ML VIAL ONE (02:12)
[2022-03-04] MEDS: EPINEPHRINE (1:1000) 10 MG in IV NS 0.9% 240 ML IV PRN ×7 (02:50→13:04)
[2022-03-04] MEDS: PHENYLEPHRINE 50 MG in IV NS 0.9% 245 ML IV PRN ×5 (02:52→12:09)
[2022-03-04] MEDS: MEROPENEM 1 G in IV NS 0.9% 100 ML IV SCH (04:21)
[2022-03-04] MEDS: BLOOD SUGAR DIAGNOSTIC 1 EACH STRIP IN SCH ×2 (05:30→11:21)
[2022-03-04] MEDS ORDERED: IV NS 0.9% 1,000 ML IV PRN (05:30)
[2022-03-04 05:37] LABS: ABG BASE EXCESS -21.1 mmol/L; ABG PCO2 79.3 mmHg (35.0-45.0); ABG PH 6.821 (7.350-7.450); ABG PO2 31.2 mmHg (75.0-100.0); AaDO2 602.5 mmHg; COHb 0.3 % (0.5-1.5); O2Hb 28.6 % (94.0-97.0); SITE, ABG Right Radial
--- NOTE | 2022-03-04 06:52 | NUR ---
RECORDINGS LIBRARIAN PT HEMODYNAMICALLY UNSTABLE TO BE REPOSITIONED
--- NOTE | 2022-03-04 07:43 | NUR ---
OPENING NOTE PT IN BED BREATHING IS AGONAL AND RAPID RR OF 34, PT IS INTUBATED RECEIVING 100% FIO2 OT SAT 18%. PT IS TACHYCARDIC RATE OF 114 WITH PVC. BP IS STABLE 106/68 MAX OUT ON VASOPRESSIN, LEVO, CYNDEE, AND EPI DRIP. NS @ 75 ML/ HR RUNNING THROUGH THE PICC LINE. YO CATHETER IN PLACE OUTPUT IS BELOW 35ML/HR COLOR IS DARK YELLOW. PICC LINE IS IN PACE DRESSED AND CLEAN NO S/S OF INFILTRATION. PT IS AFEBRIL. DNR
[2022-03-04] MEDS ORDERED: SODIUM BICARBONATE SYR 50 MEQ/50 ML DISP.SYRIN IV ONE (07:50)
[2022-03-04] MEDS ORDERED: EPINEPHRINE (1:10,000) SYRINGE 1 MG/10 ML DISP.SYRIN IVP ONE ×2 (07:50→14:01)
[2022-03-04] MEDS ORDERED: EPINEPHRINE (1:1000) 1 MG/ML AMPUL SUBCUT ONE (07:50)
[2022-03-04] MEDS ORDERED: AMIODARONE 150 MG/3 ML VIAL IV ONE (07:50)
[2022-03-04] MEDS: LEVOTHYROXINE SODIUM 50 MCG TABLET GT SCH (08:18)
[2022-03-04] MEDS: PANTOPRAZOLE 40 MG/PACK PACK PO SCH (08:18)
[2022-03-04] MEDS: DOCUSATE SODIUM LIQ 100 MG/10 ML UDC GT SCH (08:18)
[2022-03-04] MEDS: MIDODRINE HCL (5MG) 5 MG TABLET GT SCH ×2 (08:19→12:27)
[2022-03-04] MEDS: LEVETIRACETAM SOL (5 ML) 100 MG/ML UDC GT SCH (08:19)
[2022-03-04] MEDS: ASCORBIC ACID 500 MG TABLET GT SCH (08:19)
[2022-03-04] MEDS: DIVALPROEX SODIUM 125 MG CAP.SPRINK GT SCH ×2 (08:21→12:26)
[2022-03-04] MEDS: BISACODYL (5 MG) 5 MG TABLET.DR GT SCH (08:33)
[2022-03-04] MEDS: MUPIROCIN OINT 2% 22 GM TUBE NS SCH (08:34)
[2022-03-04] MEDS: RIVAROXABAN 10 MG TABLET GT SCH (09:00)
--- NOTE | 2022-03-04 09:27 | NUR ---
MARCO A HELD PLATELETS 26 HOSPITALIST NOTIFIED
[2022-03-04 11:26] LABS: BASOPHILS % (AUTO) 0.2 % (0.0-2.0); EOSINOPHILS % (AUTO) 0.5 % (0.0-6.0); HEMATOCRIT 24 % (33-45); LYMPHOCYTES # (AUTO) 1.9 K/uL (0.8-4.8); LYMPHOCYTES % (AUTO) 39.3 % (20.0-44.0); MEAN CORPUSCULAR HGB CONC 28 g/dl (31.0-36.0); MEAN CORPUSCULAR VOLUME 98 fL (82-100); MONOCYTES # (AUTO) 0.3 K/uL (0.1-1.30); MONOCYTES % (AUTO) 7.2 % (2.0-12.0); NEUTROPHILS # (AUTO) 2.5 K/uL (1.8-8.9); NEUTROPHILS % (AUTO) 52.8 % (43.0-81.0); RED BLOOD CELL COUNT(AUTO) 2.48 MIL/uL (4.0-5.2); WHITE BLOOD COUNT (AUTO) 4.8 K/uL (4.3-11.0)
[2022-03-04 11:51] LABS: CREATININE 1.8 mg/dL (0.6-1.3); POTASSIUM 4.7 mmol/L (3.5-5.1)
--- NOTE | 2022-03-04 13:30 | NUR ---
PT IS DNR. CALLED TO ROOM BECAUSE PATIENT WAS FLATLINE ON MONITOR. ON EXAM THE PATIENT DID NOT RESPOND TO VERBAL OR PHYSICAL STIMULI. ABSENT HEART TONES OR SPONTANEOUS RESPIRATIONS ON THE VENTILATOR. ABSENT PERIPHERAL PULSES. PUPILS ARE FIXED AND DILATED. PT PRONOUNCED AT 1313. JOSE HARDY DNP NOTIFIED AND CAME TO ICU. JOSE CALLED PT'S BROTHER TO NOTIFY HIM. PER JOSE NOT A CORONERS CASE. PER JOSE SEND BODY TO [facility] [place] [facility]. JOSE WILL CALL PT'S BROTHER TOMORROW TO TELL HIM WHO TO NOTIFY WHEN MORTUARY ARRANGEMENTS SECURED.
[2022-03-04 13:54] LABS: HEMOGLOBIN 6.8 g/dL (11.5-14.8); PLATELET COUNT (AUTO) 14 K/uL (150-450)
[2022-03-04] MEDS ORDERED: Sodium Bicarbonate 50 MEQ/50 ML VIAL IV ONE (14:02)
[2022-03-04 14:04] LABS: D-DIMER 35.2 mg/L(FEU (0.17-0.50)
[2022-03-04 14:04] LABS: D-DIMER 35.2 mg/L(FEU (0.17-0.50)
--- NOTE | 2022-03-04 14:49 | NUR ---
1313 PT , NO ELECTRICAL ACTIVITY ON THE EKG, CENTRAL PULSES PALPATED AND ABSENT BOTH FEMORAL AND JUGULAR, ATTEMPTED TO AUSCULTATE FOR A APICAL PULSE AND NON WAS AUDIBLE. Addendum: 03/04/22 at 1453 by THADDEUS BENZ RN PUPILS ARE FIXED AND DILATED
[2022-03-05 12:06] LABS: IMMUNOGLOBULIN A, SERUM 157 mg/dL (87-352); IMMUNOGLOBULIN G, SERUM 1353 mg/dL (586-1602); IMMUNOGLOBULIN M, SERUM 49 mg/dL (26-217)
[2022-03-06 12:06] LABS: *SPE A/G RATIO 0.3 (0.7-1.7); *SPE ALPHA-1-GLOBULIN 0.5 g/dL (0.0-0.4); *SPE ALPHA-2-GLOBULIN 0.7 g/dL (0.4-1.0); *SPE BETA GLOBULIN 0.5 g/dL (0.7-1.3); *SPE M-SPIKE Not Observed g/dL (Not Observed)
[2022-03-21] MEDS ORDERED: PALIPERIDONE PALMITATE 234 MG/1.5 ML SYRINGE IM SCH (09:00)
== END 2022-03-04 16:59 | DRG 682 ==
LOC: ER 17:04 → MED 21:47 → ICU 02-28 13:53
PROVIDERS: ADMIT Student in an Organized Health Care Education/Training Program; ATTEND Nurse Practitioner Acute Care
PROC: 05HA33Z Insertion of Infusion Device into Left Brachial Vein, Percutaneous Approach (ICD-10-PCS; 2022-02-21)
PROC: 05HB33Z Insertion of Infusion Device into Right Basilic Vein, Percutaneous Approach (ICD-10-PCS; 2022-02-24)
PROC: 0DH63UZ Insertion of Feeding Device into Stomach, Percutaneous Approach (ICD-10-PCS; principal; 2022-02-26)
PROC: 5A1945Z Respiratory Ventilation, 24-96 Consecutive Hours (ICD-10-PCS; 2022-02-28)
PROC: 0BH18EZ Insertion of Endotracheal Airway into Trachea, Via Natural or Artificial Opening Endoscopic (ICD-10-PCS; 2022-02-28)
PROC: 5A2204Z Restoration of Cardiac Rhythm, Single (ICD-10-PCS; 2022-03-04)
DX: N17.0 Acute kidney failure with tubular necrosis (principal); A41.9 Sepsis, unspecified organism; E43 Unspecified severe protein-calorie malnutrition; J96.01 Acute respiratory failure with hypoxia; R65.21 Severe sepsis with septic shock; J69.0 Pneumonitis due to inhalation of food and vomit; J96.02 Acute respiratory failure with hypercapnia; G92.8 Other toxic encephalopathy; E87.0 Hyperosmolality and hypernatremia; I50.32 Chronic diastolic (congestive) heart failure; I13.0 Hypertensive heart and chronic kidney disease with heart failure and stage 1 through stage 4 chronic kidney disease, or unspecified chronic kidney disease; I48.20 Chronic atrial fibrillation, unspecified; D68.59 Other primary thrombophilia; E87.1 Hypo-osmolality and hyponatremia; D61.818 Other pancytopenia; E66.2 Morbid (severe) obesity with alveolar hypoventilation; J90 Pleural effusion, not elsewhere classified; R62.7 Adult failure to thrive; E86.0 Dehydration; N18.9 Chronic kidney disease, unspecified; Z20.822 Contact with and (suspected) exposure to COVID-19; Z66 Do not resuscitate; Z86.19 Personal history of other infectious and parasitic diseases; F32.9 Major depressive disorder, single episode, unspecified; M19.90 Unspecified osteoarthritis, unspecified site; Z78.0 Asymptomatic menopausal state; Z88.0 Allergy status to penicillin; Z88.8 Allergy status to other drugs, medicaments and biological substances; Z91.018 Allergy to other foods; Z79.01 Long term (current) use of anticoagulants; Z79.899 Other long term (current) drug therapy; Z86.718 Personal history of other venous thrombosis and embolism; R13.10 Dysphagia, unspecified; E03.9 Hypothyroidism, unspecified; E11.22 Type 2 diabetes mellitus with diabetic chronic kidney disease; E11.51 Type 2 diabetes mellitus with diabetic peripheral angiopathy without gangrene; Z68.38 Body mass index [BMI] 38.0-38.9, adult; E78.5 Hyperlipidemia, unspecified; E88.09 Other disorders of plasma-protein metabolism, not elsewhere classified; F25.9 Schizoaffective disorder, unspecified; E86.1 Hypovolemia; G40.909 Epilepsy, unspecified, not intractable, without status epilepticus; S81.801A Unspecified open wound, right lower leg, initial encounter; S81.802A Unspecified open wound, left lower leg, initial encounter; X58.XXXA Exposure to other specified factors, initial encounter; Y92.9 Unspecified place or not applicable; K29.70 Gastritis, unspecified, without bleeding; D69.6 Thrombocytopenia, unspecified; E87.5 Hyperkalemia; E87.6 Hypokalemia; E83.41 Hypermagnesemia; Z74.09 Other reduced mobility; D64.9 Anemia, unspecified
CPT/HCPCS: 31720; 36415; 36600; 43246; 71045-TC; 72170-TC; 76770-TC; 80048-TC; 80053-TC; 80076-TC; 80202-TC; 81001; 82378; 82607-TC; 82728-TC; 82784; 82803-TC; 82962-TC; 83540-TC; 83735-TC; 84100-TC; 84155; 84165; 84439-TC; 84443-TC; 84478-TC; 85025-TC; 85396; 86140-TC; 86225; 86235; 86334; 86431-TC; 86704; 86706; 86803; 87040-TC; 87081-TC; 87340; 87806; 92950-TC; 94002-TC; 94003-TC; 94760-TC; 94799-TC; 95819-TC; 97530-TC; C9803; G0378; J0171; J0282; J0330; J1815; J1953; J2060; J2185; J2370; J2405; J2704; J3010; J3370; J3480; J3490; J7030; J7040; J7050; J7060; J7070; J7120